=== PATIENT | female | born 1940 | race Caucasian/White ===

== ENCOUNTER → 2016-05-24 | Outpatient (CLI) | payer MEDICARE, OTHER ==
[2016-02-19 11:00] VITALS: BP 102/60
[~2016-05-24] MED LIST: ACET325T9 PO; AMIO200T2 PO; CELE100C PO; CHOL100013 PO; ESOM40CA PO; FENO145T2 PO; FURO40TA4 PO; INSU100C4 SQ; INSU100I13 SQ; INSU100I17 SQ; ISOS60TA2 PO; LEVO88TA2 PO; LOSA50TA6 PO; MAGN400C PO; NITR0.4T SL; OMEG300C PO; PRAV20TA2 PO; WARF2TAB PO; ZOLPIDEM 5 MG TABLET. ONE; ZOLPIDEM 5 MG TABLET. PO ONE
--- NOTE | 2016-05-31 20:08 | SLEEP ---
DATE OF STUDY: 05/25/2016 ATTENDING PHYSICIAN: ____. The patient is 76 years old who weighs 290 pounds with a BMI of 47. The patient's [place] score was 10. Sleep study was performed at [facility]. During the night of the study, the patient spent 441 minutes in bed and slept for 187 minutes with a poor sleep efficiency of 42%. Sleep latency was 25 minutes with a REM latency of 67 minutes. Overall, sleep architecture showed normal stage I sleep, increased stage II sleep, normal slow wave and reduced REM sleep. During the initial diagnostic portion of the study, the patient slept 400 minutes. During this time, there was 1 obstructive apnea, 22 hypopneas, 2 mixed and no central apneas. The patient's apnea hypopnea index was 15 per hour. REM index of 35 per hour. The patient did not have any significant supine sleep. EKG monitoring revealed average heart rate of 79 beats per minute. There were no sustained arrhythmias. There were few PACs. Review of nocturnal oximetry study during the diagnostic portion revealed a mean oxygen saturation of 98% with the lowest of 84%. 47% of time oxygen saturation remained between 80% and 89%. PLMs were not seen. The patient met the criteria for CPAP initiation. It was started at 5 cm water and titrated up to 9 cm water. At the final pressure, the patient had 21 minutes of sleep. AHI was reduced to 0 per hour. The patient had no supine sleep. There was very minimal REM sleep was observed. The patient's oxygen saturations at the final pressure remained above 90%. The patient used nasal pillows. IMPRESSION: 1. Mild sleep apnea-hypopnea syndrome with worsening during REM sleep. Total AHI 15 per hour with a REM AHI of 35 per hour. 2. Poor sleep efficiency of 42%, resulting from sleep maintenance insomnia. 3. No clinically significant PLMS. 4. Nocturnal hypoxia secondary to obstructive sleep apnea, but resolved with CPAP. RECOMMENDATIONS: 1. CPAP at 9 cm water completely eliminated patient's sleep apnea and should be used on a nightly basis. 2. Follow up in 4-6 weeks to assess compliance with CPAP and to document clinical improvement. I would also recommend to review the download data to make sure AHI is less than 5 per hour on the final pressure. 3. Avoid TECHNICAL SUPPORT TECHNICIAN depressants. 4. Caution regarding driving until symptoms of sleep apnea resolve with the use of CPAP. 5. Weight loss is strongly advised. SHLOMO RODRIGUEZ MD DR: STANISLAW/jose JOB#: [id number] / [id number] TORRI
== END | disposition home or self-care (01) ==
LOC: SLPLAB 18:49
PROVIDERS: ATTEND Internal Medicine Critical Care Medicine
DX: G47.33 Obstructive sleep apnea (adult) (pediatric) (principal)
CPT/HCPCS: 95810

== ENCOUNTER 2020-07-24 20:33 | Emergency (ER) | payer MEDICARE, OTHER ==
[~2020-07-24] VITALS: Ht 170.2 cm; Wt 127.3 kg
[~2020-07-24 20:33] MED LIST changes: -AMIO200T2 PO; +AMIO200T6 PO; +APIX5TAB PO; +ASPI-886 PO; +CARV12.511 PO; +CLOP75TA PO; +CYCL1DRO EACHEYE; +DOCU-109 PO; -FENO145T2 PO; +FENO145T3 PO; +HYDR-2868 PO; -ISOS60TA2 PO; +ISOS60TA55 PO; -LEVO88TA2 PO; +LEVO88TA70 PO; +LOSA-73 PO; -LOSA50TA6 PO; +MAGN400T5 PO; +MOXI3DRO22 LEFTEYE; +NEPA3DRO LEFTEYE; -NITR0.4T SL; +NITR0.4T24 SL; +PANT20TA2 PO; +PRED5DRO16 LEFTEYE; +WARF3TAB54 PO; -ZOLPIDEM 5 MG TABLET. ONE; -ZOLPIDEM 5 MG TABLET. PO ONE
[2020-07-24] MEDS ORDERED: IV NORMAL SALINE 1000ML BAG 1,000 ML IV SCH (22:00)
[2020-07-24 22:10] LABS: BASO % 1 % (0-3); EOS # 0.1 x10^3/uL (0.0-0.7); EOS % 1 % (0-3); HEMOGLOBIN 13.7 g/dL (12.0-15.5); LYMPH # 1.2 x10^3/uL (1.0-4.8); LYMPH % 20 % (24-48); MEAN CORPUSCULAR HEMOGLOBIN 33 pg (25-35); MEAN CORPUSCULAR HGB CONC 33 g/dL (31-37); MEAN CORPUSCULAR VOLUME 98 fL (79-100); MONO # 0.4 x10^3/uL (0.0-1.1); MONO % 7 % (0-9); NEUT # 4.3 x10^3/uL (1.8-7.7); NEUT % 71 % (31-73); PLATELET COUNT 168 x10^3/uL (140-400); RED BLOOD COUNT 4.17 x10^6/uL (3.50-5.40); RED CELL DISTRIBUTION WIDTH 14.8 % (11.5-14.5)
[2020-07-24 22:18] LABS: CALCIUM 9.1 mg/dL (8.5-10.1); CREATININE 1.3 mg/dL (0.6-1.0); GFR 39.3; POTASSIUM 4.3 mmol/L (3.5-5.1)
[2020-07-24 22:23] LABS: ALBUMIN 3.7 g/dL (3.4-5.0); ALBUMIN/GLOBULIN RATIO 0.9 (1.0-1.7); TOTAL BILIRUBIN 0.8 mg/dL (0.2-1.0); TOTAL PROTEIN 7.8 g/dL (6.4-8.2)
[2020-07-24] MEDS ORDERED: MORPHINE SULFATE 4 MG/ML VIAL. IV ONE (23:00)
--- NOTE | 2020-07-24 23:24 | RAD ---
Exam: Chest one view INDICATION: Chest pain TECHNIQUE: Frontal view of the chest Comparisons: 10/27/2019 FINDINGS: Heart is mildly enlarged. Pulmonary vessels are within normal limits. The lung and pleural spaces are clear. IMPRESSION: No acute pulmonary process. Electronically signed by: Shanta Graves MD (07/24/2020 11:21 PM) MATTHEW
--- NOTE | 2020-07-24 23:31 | EKG ---
[facility] [address] [place] [address] Test Date: 2020-07-24 Test Time: 21:47:52 Pat Name: MARIA ELENA HOFFMANN Department: Room: Gender: F Curriculum Development Specialist: : 1940 Requested By: KATIE HARRIS Order Number: [id number] Reading MD: Measurements Intervals [place] Rate: 87 P: HI: QRS: 26 QRSD: 68 T: 49 QT: 386 QTc: 465 Interpretive Statements IRREGULAR RHYTHM, NO P-WAVE FOUND LOW LIMB LEAD VOLTAGE QRS(T) CONTOUR ABNORMALITY CONSIDER ANTEROSEPTAL MYOCARDIAL DAMAGE T ABNORMALITY IN ANTERIOR LEADS ABNORMAL ECG RI6.02 No previous ECG available for comparison
--- NOTE | 2020-07-24 23:42 | PHYS DOC ---
Past Medical History Past Medical History: A-Fib, CAD, CHF, Constipation, Diabetes-Type II, GERD, High Cholesterol, Hypertension, Hypothyroid, [place], Other Additional Past Medical Histor: PGM blood clot disease; hernia Past Surgical History: Appendectomy, Hysterectomy, Other Additional Past Surgical Histo: cardiac stents; knee; hernia; cataract surgery left eye Smoking Status: Never Smoker Alcohol Use: None Drug Use: None Adult General Chief Complaint Chief Complaint: UPPER EXTREMITY PAIN HPI HPI Patient is a 80 year old female with a complicated past medical history which includes hypertension, hyperlipidemia, CHF, CAD, A. fib and diabetes now pre sents emergency department complaint of new onset chest pain and shoulder pain. Patient states that early yesterday afternoon she started noticing a pain that primarily started in the right neck radiating to the right shoulder and into the right anterior chest. Patient states of been associated with mild sensation of shortness of breath. Denies any nausea or vomiting. Patient does state that t he pain appears worse when she moves her neck. Denies any fever or chills. Denies any history of similar symptoms. Review of Systems Review of Systems Constitutional: Denies fever or chills [] Eyes: Denies change in visual acuity, redness, or eye pain [] HENT: Denies nasal congestion or sore throat [] Respiratory: Denies cough or shortness of breath [] Cardiovascular: No additional information not addressed in HPI [] GI: Denies abdominal pain, nausea, vomiting, bloody stools or diarrhea [] : Denies dysuria or hematuria [] Musculoskeletal: Denies back pain or joint pain [] Integument: Denies rash or skin lesions [] Neurologic: Denies headache, focal weakness or sensory changes [] Endocrine: Denies polyuria or polydipsia [] All other systems were reviewed and found to be within normal limits, except as documented in this note. Current Medications Current Medications Current Medications Medications (Trade) Dose Ordered Sig/Massimo Start Time Stop Time Status Last Admin Dose Admin Morphine Sulfate (Morphine Sulfate) 4 mg 1X ONCE 07/24/20 23:00 07/24/20 23:01 DC 07/24/20 23:01 4 MG Sodium Chloride 1,000 ml @ 1,000 mls/hr Q1H 07/24/20 22:00 07/24/20 22:59 DC 07/24/20 22:00 1,000 MLS/HR Allergies Allergies Allergies Coded Allergies Type Severity Reaction Last Updated Verified I S O L A T I O N *CONTACT* Allergy Unknown 01/10/18 Yes No Known Medication Allergies Allergy Unknown 01/10/18 Yes Physical Exam Physical Exam Constitutional: Well developed, well nourished, no acute distress, non-toxic appearance. [] HENT: Normocephalic, atraumatic, bilateral external ears normal, oropharynx alexei st, no oral exudates, nose normal. [] Eyes: PERRLA, EOMI, conjunctiva normal, no discharge. [] Neck: Normal range of motion, no tenderness, supple, no stridor. [] Cardiovascular:Heart rate regular rhythm, no murmur [] Lungs & Thorax: Bilateral breath sounds clear to auscultation [] Abdomen: Bowel sounds normal, soft, no tenderness, no masses, no pulsatile masses. [] Skin: Warm, dry, no erythema, no rash. [] Back: No tenderness, no CVA tenderness. [] Extremities: No tenderness, no cyanosis, no clubbing, ROM intact, no edema. [] Neurologic: Alert and oriented X 3, normal motor function, normal sensory function, no focal deficits noted. [] Psychologic: Affect normal, judgement normal, mood normal. [] Current Patient Data Vital Signs Vital Signs Date Time Temp Pulse Resp B/P (MAP) Pulse Ox O2 Delivery O2 Flow Rate FiO2 07/24/20 23:01 Room Air 07/24/20 21:30 98.1 76 16 160/86 (110) 96 98.1 Lab Values Laboratory Tests Test 07/24/20 22:00 White Blood Count 6.0 x10^3/uL (4.0-11.0) Red Blood Count 4.17 x10^6/uL (3.50-5.40) Hemoglobin 13.7 g/dL (12.0-15.5) Hematocrit 41.0 % (36.0-47.0) Mean Corpuscular Volume 98 fL (79-100) Mean Corpuscular Hemoglobin 33 pg (25-35) Mean Corpuscular Hemoglobin Concent 33 g/dL (31-37) Red Cell Distribution Width 14.8 % (11.5-14.5) H Platelet Count 168 x10^3/uL (140-400) Neutrophils (%) (Auto) 71 % (31-73) Lymphocytes (%) (Auto) 20 % (24-48) L Monocytes (%) (Auto) 7 % (0-9) Eosinophils (%) (Auto) 1 % (0-3) Basophils (%) (Auto) 1 % (0-3) Neutrophils # (Auto) 4.3 x10^3/uL (1.8-7.7) Lymphocytes # (Auto) 1.2 x10^3/uL (1.0-4.8) Monocytes # (Auto) 0.4 x10^3/uL (0.0-1.1) Eosinophils # (Auto) 0.1 x10^3/uL (0.0-0.7) Basophils # (Auto) 0.0 x10^3/uL (0.0-0.2) Sodium Level 141 mmol/L (136-145) Potassium Level 4.3 mmol/L (3.5-5.1) Chloride Level 102 mmol/L (98-107) Carbon Dioxide Level 24 mmol/L (21-32) Anion Gap 15 (6-14) H Blood Urea Nitrogen 34 mg/dL (7-20) H Creatinine 1.3 mg/dL (0.6-1.0) H Estimated GFR (Cockcroft-Gault) 39.3 BUN/Creatinine Ratio 26 (6-20) H Glucose Level 214 mg/dL (70-99) H Calcium Level 9.1 mg/dL (8.5-10.1) Magnesium Level 2.0 mg/dL (1.8-2.4) Total Bilirubin 0.8 mg/dL (0.2-1.0) Aspartate Amino Transferase (AST) 13 U/L (15-37) L Alanine Aminotransferase (ALT) 12 U/L (14-59) L Alkaline Phosphatase 63 U/L (46-116) Troponin I Quantitative < 0.017 ng/mL (0.000-0.055) Total Protein 7.8 g/dL (6.4-8.2) Albumin 3.7 g/dL (3.4-5.0) Albumin/Globulin Ratio 0.9 (1.0-1.7) L Lipase 81 U/L (73-393) Laboratory Tests 07/24/20 22:00 Laboratory Tests 07/24/20 22:00 EKG EKG [] Radiology/Procedures Radiology/Procedures [] Course & Med Decision Making Course & Med Decision Making Pertinent Labs and Imaging studies reviewed. (See chart for details) 80F in the emergency department primarily with right-sided shoulder pain but also complaint of new onset of chest pain. Symptoms did start yesterday at this time will obtain ACS work-up and x-rays to evaluate for any significant abnormality and if negative feel patient be safely discharged home Dragon Disclaimer Dragon Disclaimer This electronic medical record was generated, in whole or in part, using a voice recognition dictation system. Departure Departure Impression: Primary Impression: Right shoulder pain Disposition: HOME / SELF CARE / HOMELESS Condition: GOOD Referrals: JUDY CONCEPCION MD (PCP) Patient Instructions: Shoulder Pain Additional Instructions: EMERGENCY DEPARTMENT GENERAL DISCHARGE INSTRUCTIONS Thank you for coming to [facility] Emergency Department (ED) today and trusting us with you care. We trust that you had a positive experience in our E mergency Department. If you wish to speak to the department management, you may call the Director at [phone]. YOUR FOLLOW UP INSTRUCTIONS ARE FOLLOWS: 1. Do you have a private Doctor? If you do not have a private doctor, please ask for a resource list of physicians or clinics that may be able to assist you with follow up care. 2. The Emergency Physicain has interpreted your x-rays. The X-Ray specialist will also review them. If there is a change in the findings, you will be notified in 48 hours when at all possible. 3. A lab test or culture has been done, your results will be reviewed and you will be notified if you need a change in treatment. ADDITIONAL INSTRUCTIONS AND INFORMATION: 1. Your care today has been supervised by a physician who is specially trained in emergency care. Many problems require more than one evaluation for a complete diagnosis and treatment. We recommend that you schedule your follow up appointment as recommended to ensure complete treatment of you illness or injury. If you are unable to obtain follow up care and continue to have a problem, or if your condition worsens, we recommend that you return to the ED. 2. We are not able to safely determine your condition over the phone nor are we able to give sound medical advice over the phone. For these safety reasons, if you call for medical advice we will ask you to come to the ED for further evaluation. 3. If you have any questions regarding these discharge instructions please call the ED at [phone]. SAFETY INFORMATION: In the interest of safety, wellness, and injury prevention; we encourage you to wear your sealbelt, if you smoke; quite smoking, and we encourage family to use a protective helmet for bicycling and other sporting events that present an increased risk for head injury. IF YOUR SYMPTOMS WORSEN OR NEW SYMPTOMS DEVELOP, OR YOU HAVE CONCERNS ABOUT YOUR CONDITION; OR IF YOUR CONDITION WORSENS WHILE YOU ARE WAITING FOR YOUR FOLLOW UP APPOINTMENT; EITHER CONTACT YOUR PRIMARY CARE DOCTOR, THE PHYSICIAN WHOSE NAME AND NUMBER YOU WERE GIVEN, OR RETURN TO THE ED IMMEDIATELY. KATIE HARRIS MD Jul 24, 2020 23:42
--- NOTE | 2020-07-24 23:48 | RAD ---
Study: XR SHOULDER_RIGHT 2+ VIEWS Indication: Right shoulder pain. Comparison: None. Findings: No displaced fracture or traumatic malalignment. Moderate AC joint arthrosis with periarticular spurr ing. Glenohumeral joint arthrosis is difficult to closely assess but favored mild to moderate. Osteop enia. Impression: No acute radiographic abnormality of the right shoulder girdle. Degenerative changes are collectively mild/moderate. Electronically signed by: MARCO ANTONIO GILL MD (07/24/2020 11:45 PM) [facility]
[2020-07-25 01:06] VITALS: BP 192/77
== END 2020-07-25 01:41 | disposition home or self-care (01) ==
LOC: ER 20:33
DX: M25.511 Pain in right shoulder (principal); R07.89 Other chest pain; I48.20 Chronic atrial fibrillation, unspecified; I11.0 Hypertensive heart disease with heart failure; I50.9 Heart failure, unspecified; K21.9 Gastro-esophageal reflux disease without esophagitis; E78.00 Pure hypercholesterolemia, unspecified; E03.9 Hypothyroidism, unspecified; I25.2 Old myocardial infarction; E11.9 Type 2 diabetes mellitus without complications; Z90.710 Acquired absence of both cervix and uterus; Z90.89 Acquired absence of other organs; Z98.890 Other specified postprocedural states; Z88.8 Allergy status to other drugs, medicaments and biological substances
CPT/HCPCS: 36415; 71045; 73030; 80053; 83690; 83735; 84484; 85025; 93005; 96361; 96374; 99285; J2270; J7030

== ENCOUNTER 2021-06-03 21:04 | Inpatient (IN) | payer MEDICARE, OTHER ==
[~2021-06-03] VITALS: Ht 170.2 cm; Wt 136.2 kg
[~2021-06-03 21:04] MED LIST changes: +AMIO200T53 PO; -AMIO200T6 PO; +MAGN400T48 PO; -MAGN400T5 PO
--- NOTE | 2021-06-03 21:06 | PHYS DOC ---
Past Medical History Past Medical History: A-Fib, CAD, CHF, Constipation, Diabetes-Type II, GERD, High Cholesterol, Hypertension, Hypothyroid, [place], Other Additional Past Medical Histor: PGM blood clot disease; hernia Past Surgical History: Appendectomy, Hysterectomy, Other Additional Past Surgical Histo: cardiac stents; knee; hernia; cataract surgery left eye Smoking Status: Never Smoker Alcohol Use: None Drug Use: None General Adult EDM: Chief Complaint: NEAR SYNCOPE HPI: HPI: Patient is a 81 year old female who presents from home, by EMS, with multiple complaints. The patient reports that she was trying to go to the bathroom, and when she stood up, she fell forward into the bathtub, she reports losing consciousness. She does report feeling lightheaded and dizzy prior to this. She reports that she has felt short of breath for quite a while, no acute changes today. She reports intermittent chest pressure. She denies acute chest pressure at present. She has had a progressively worsening cough over the last few weeks. Within the last 2 to 3 weeks, she had been hospitalized at [facility]. The patient is an incredibly poor historian, as is her . The patient reports that she does not know why she was admitted other than she "had problems with fluid." Patient is chronically dependent on supplemental oxygen, reportedly using 4 L per nasal cannula at all times. The p atwilfrido reports that he checks her pulse oximeter at home and she saturates in the 70s when she exerts herself, and she is frequently saturating in the 80s at rest. EMS was called to lift her out of the bathtub. She was unable to get up on her own. She reports right knee pain, though she has a history of chronic knee pain. She has history of chronic back pain. The patie nt admits to frequently taking her 's oxycodone to help with her pain. She does not want to discuss her pain issues with her primary care doctor because she feels that they will disapprove of her taking her 's opioid medication. She thinks that she may have hit her knee when she fell into the bathtub today. EMS noted hypoxia in the low 80s, placed on a nonrebreather. She reports that the nonrebreather is irritating her, she wishes to have it taken off. She denies headache, neck pain. She denies focal weakness. She has chronic neuropathy pain, but this is unchanged. No new numbness or tingling symptoms reported. She denies abdominal pain, nausea, vomiting. She denies fevers, but she has had chills. She has been recommended for inpatient rehab for assisted care, multiple times, but she has refused each time. Her has a disagreed with her returning home, especially after her more recent hospitalization. Her reports that she never participates meaningfully in home health services or physical therapy. Review of Systems: Review of Systems: Constitutional: Denies fever or chills. Generalized malaise and fatigue Eyes: Denies change in visual acuity. [] HENT: Denies nasal congestion or sore throat. [] Respiratory: Cough, dyspnea, [place] Cardiovascular: Chest pressure. Chronic lower extremity swelling. GI: Denies abdominal pain, nausea, vomiting, or diarrhea : Reports urinary frequency and mild dysuria. Musculoskeletal: Back pain, right knee pain. She has chronic bilateral knee pain Integument: Denies rash. [] Neurologic: Denies headache, focal weakness or sensory changes. Syncope and dizziness reported Endocrine: Reports polyuria or polydipsia. [] Lymphatic: Denies swollen glands. [] Psychiatric: Anxiety Heart Score: C/O Chest Pain: Yes HEART Score for Chest Pain: HEART Score for Chest Pain Response (Comments) Value History Moderately Suspicious 1 ECG Nonspecific Repolarizatio 1 Age > 65 2 Risk Factors >3 Risk Factors or Hx CAD 2 Total 6 Risk Factors: Risk Factors: DM, Current or recent (<one month) smoker, HTN, HLP, family history of CAD, obesity. Risk Scores: Score 0 - 3: 2.5% MACE over next 6 weeks - Discharge Home Score 4 - 6: 20.3% MACE over next 6 weeks - Admit for Clinical Observation Score 7 - 10: 72.7% MACE over next 6 weeks - Early Invasive Strategies Allergies: Allergies: Allergies Coded Allergies Type Severity Reaction Last Updated Verified I S O L A T I O N *CONTACT* Allergy Unknown 01/10/18 Yes No Known Medication Allergies Allergy Unknown 01/10/18 Yes Physical Exam: PE: Constitutional: Well developed, well nourished, no acute distress, non-toxic appearance. [] HENT: Normocephalic, atraumatic, bilateral external ears normal, oropharynx moist, no oral exudates, nose normal. [] Eyes: PERRLA, EOMI, conjunctiva normal, no discharge. [] Neck: Normal range of motion, no tenderness, supple, no stridor. [] Cardiovascular:Heart rate regular rhythm, no murmur [] Lungs & Thorax: Bilateral breath sounds clear to auscultation [] Abdomen: Bowel sounds normal, soft, no tenderness, no masses, no pulsatile masses. [] Skin: Warm, dry, no erythema, no rash. [] Back: No tenderness, no CVA tenderness. [] Extremities: No tenderness, no cyanosis, no clubbing, ROM intact, no edema. [] Neurologic: Alert and oriented X 3, normal motor function, normal sensory function, no focal deficits noted. [] Psychologic: Affect normal, judgement normal, mood normal. [] EKG: EKG: EKG is interpreted at 2116 Rhythm is atrial fibrillation Rate is 72 bpm [place] is normal No STEMI low voltage Radiology/Procedures: Radiology/Procedures: IMAGING REPORT Signed PATIENT: MARIA ELENA HOFFMANN ACCOUNT: [id number] : 1940 LOCATION: ER AGE: 81 SEX: F EXAM STATUS: REG ER ORD. PHYSICIAN: NAHUN RICHARDS DO REASON: dyspnea, chest pain PROCEDURE: PORTABLE CHEST 1V EXAM: CHEST ONE VIEW. HISTORY: Dyspnea, chest pain. COMPARISON: 07/24/2020. FINDINGS: A frontal view of the chest is obtained. There are interstitial and airspace infiltrates bilaterally with a basilar predominance. Small pleural effusions are suspected. There is no pneumothorax. The heart is moderately enlarged. There are atherosclerotic calcifications of the aorta. IMPRESSION: 1. Moderate pulmonary edema versus atypical pneumonia. Small pleural effusions are suspected. Electronically signed by: Major Mcgovern MD (06/03/2021 11:02 PM) [id number] DICTATED and SIGNED BY: DAMI MCGOVERN MD DATE: 06/03/21 [id number] IMAGING REPORT Signed PATIENT: MARIA ELENA HOFFMANN ACCOUNT: [id number] : 1940 LOCATION: ER AGE: 81 SEX: F EXAM STATUS: REG ER ORD. PHYSICIAN: NAHUN RICHARDS DO REASON: syncope PROCEDURE: CT HEAD AND CERVICAL SPINE WO Exam: CT head and cervical spine without contrast INDICATION: Syncope TECHNIQUE: Sequential axial images through the head and cervical spine were obtained without the administration of IV contrast. Exposure: One or more of the following in the visualized dose reduction techniques were utilized for this examination: 1. Automated exposure control 2. Adjustment of the MA and/or KV according to patient size 3. Use of iterative of reconstructive technique Comparisons: None FINDINGS: Head: No focal parenchymal lesion or hemorrhage is identified. There is no midline shift or sulcal effacement. Patchy hypodensity in the periventricular white matter. No acute vascular territory infarction is identified. Segal-white distinction is preserved. The ventricular system is within normal limits without compression hydrocephalus. The basal cisterns are well maintained. The visualized portions of the paranasal sinuses and mastoid air cells are well- pneumatized. No acute fractures. Cervical spine: Straightening of cervical spine which may positional. Vertebral body heights are well-maintained. Fracture to the cervical spine is not identified. Multilevel spondylotic change in cervical spine with degenerative disc disease greatest at C5-C6 and C6-C7. Mild bilateral facet arthropathy is noted in cervical spine. Visualized paraspinal soft tissues are unremarkable. IMPRESSION: 1. No acute intracranial abnormality. 2. Negative CT C-spine for acute traumatic injury. Electronically signed by: Shanta Knight MD (06/03/2021 11:00 PM) [facility] DICTATED and SIGNED BY: SHANTA KNIGHT MD DATE: 06/03/21 [id number] IMAGING REPORT Signed PATIENT: MARIA ELENA HOFFMANN ACCOUNT: [id number] : 1940 LOCATION: [address] [place] [address] AGE: 81 SEX: F EXAM STATUS: ADM IN ORD. PHYSICIAN: NAHUN RICHARDS DO REASON: pain PROCEDURE: KNEE RIGHT 2V XR KNEE_RT 1-2 VIEWS 06/03/2021 12:19 AM INDICATION: Pain COMPARISON: None available. TECHNIQUE: 3 views of the right knee are provided. 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 There is no lucency surrounding the hardware. No acute fracture identified. No findings to suggest hardware failure. Vascular calcifications are present. Moderate knee joint effusion. Patella appears intact. Patellar enthesopathy. Electronically signed by: Francisca Rajan MD (06/04/2021 12:55 AM) [facility] DICTATED and SIGNED BY: FRANCISCA RAJAN MD DATE: 06/04/21 [id number] Course & Med Decision Making: Course & Med Decision Making Pertinent Labs and Imaging studies reviewed. (See chart for details) The patient's oxygen is titrated to 6 L per nasal cannula. ABG does not demonstrate any significant hypoxia or worsening respiratory failure. Blood cultures and lactate obtained. She is empirically treated with IV vancomycin and Zosyn for treatment of healthcare associated pneumonia. She also has a urinary tract infection. IV Lasix is ordered. The patient demanded something for her knee pain. X-ray does not reveal any acute fracture. I ordered a dose of [place] for her. I have had multiple, lengthy discussions with the patient and her regarding the findings, differential diagnosis and plan of care. The patient is comfortable with the plan for admission. I expressed specific concerns to the patient and her regarding failure to thrive, and I recommend a social media strategist consultation. The patient is excepted for admission by Dr. Howard. Ami Disclaimer: Ami Disclaimer: This electronic medical record was generated, in whole or in part, using a voice recognition dictation system. Departure Departure Impression: Primary Impression: Healthcare-associated pneumonia Additional Impressions: Syncope Generalized weakness Urinary tract infection Failure to thrive Diabetes mellitus Chronic respiratory failure with hypoxia, on home O2 therapy Disposition: ADMITTED INPATIENT Admitting Physician: JEB (Dr. Howard) Condition: GUARDED Referrals: JUDY CONCEPCION MD (PCP) NAHUN RICHARDS DO Jun 03, 2021 21:06
[2021-06-03 21:50] LABS: BASO % 0 % (0-3); EOS % 1 % (0-3); HEMATOCRIT 33.8 % (36.0-47.0); HEMOGLOBIN 11.3 g/dL (12.0-15.5); LYMPH # 0.7 x10^3/uL (1.0-4.8); LYMPH % 9 % (24-48); MEAN CORPUSCULAR HEMOGLOBIN 35 pg (25-35); MEAN CORPUSCULAR HGB CONC 33 g/dL (31-37); MEAN CORPUSCULAR VOLUME 105 fL (79-100); MONO # 0.5 x10^3/uL (0.0-1.1); MONO % 6 % (0-9); NEUT # 6.8 x10^3/uL (1.8-7.7); NEUT % 85 % (31-73); PLATELET COUNT 158 x10^3/uL (140-400); RED BLOOD COUNT 3.22 x10^6/uL (3.50-5.40); RED CELL DISTRIBUTION WIDTH 17.9 % (11.5-14.5)
[2021-06-03 21:58] LABS: PROTHROMBIN TIME PATIENT 17.5 SEC (11.7-14.0)
[2021-06-03 22:05] LABS: CALCIUM 8.5 mg/dL (8.5-10.1); CREATININE 1.3 mg/dL (0.6-1.0); GFR 39.2; POTASSIUM 4.5 mmol/L (3.5-5.1)
[2021-06-03 22:11] LABS: ALBUMIN 3.1 g/dL (3.4-5.0); ALBUMIN/GLOBULIN RATIO 0.7 (1.0-1.7); MAGNESIUM 1.9 mg/dL (1.8-2.4); PHOSPHORUS 3.9 mg/dL (2.6-4.7); TOTAL BILIRUBIN 1.1 mg/dL (0.2-1.0); TOTAL PROTEIN 7.3 g/dL (6.4-8.2)
[2021-06-03 22:39] LABS: BILIRUBIN,URINE SMALL (NEG); CLARITY,URINE CLOUDY; COLOR,URINE YELLOW; NITRITE,URINE POSITIVE (NEG); PH,URINE 5.5 (<5.0-8.0); PROTEIN,URINE 30 mg/dL (NEG-TRACE); UROBILINOGEN,URINE 0.2 mg/dL (0.2 mg/dL)
[2021-06-03 22:40] LABS: BACTERIA,URINE MANY /HPF (0-FEW); RBC,URINE OCC /HPF (0-2); WBC,URINE TNTC /HPF (0-4)
[2021-06-03] MEDS ORDERED: VANCOMYCIN 1.5 GM in IV NORMAL SALINE 500ML BAG 500 ML IV ONE (23:00)
--- NOTE | 2021-06-03 23:03 | RAD ---
Exam: CT head and cervical spine without contrast INDICATION: Syncope TECHNIQUE: Sequential axial images through the head and cervical spine were obtained without the admi nistration of IV contrast. Exposure: One or more of the following in the visualized dose reduction techniques were utilized for this examination: 1. Automated exposure control 2. Adjustment of the MA and/or KV according to patient size 3. Use of iterative of reconstructive technique Comparisons: None FINDINGS: Head: No focal parenchymal lesion or hemorrhage is identified. There is no midline shift or sulcal effaceme nt. Patchy hypodensity in the periventricular white matter. No acute vascular territory infarction is connie ntified. Segal-white distinction is preserved. The ventricular system is within normal limits without compression hydrocephalus. The basal cisterns are well maintained. The visualized portions of the paranasal sinuses and mastoid air cells are well-pneumatized. No acute fractures. Cervical spine: Straightening of cervical spine which may positional. Vertebral body heights are well-maintained. Fracture to the cervical spine is not identified. Multilevel spondylotic change in cervical spine with degenerative disc disease greatest at C5-C6 and C6-C7. Mild bilateral facet arthropathy is noted in cervical spine. Visualized paraspinal soft tissues are unremarkable. IMPRESSION: 1. No acute intracranial abnormality. 2. Negative CT C-spine for acute traumatic injury. Electronically signed by: Shanta Graves MD (06/03/2021 11:00 PM) [facility]
--- NOTE | 2021-06-03 23:04 | RAD ---
EXAM: CHEST ONE VIEW. HISTORY: Dyspnea, chest pain. COMPARISON: 07/24/2020. FINDINGS: A frontal view of the chest is obtained. There are interstitial and airspace infiltrates bilaterally with a basilar predominance. Small pleura l effusions are suspected. There is no pneumothorax. The heart is moderately enlarged. There are athe rosclerotic calcifications of the aorta. IMPRESSION: 1. Moderate pulmonary edema versus atypical pneumonia. Small pleural effusions are suspected. Electronically signed by: Major Mcgovern MD (06/03/2021 11:02 PM) [place]
[2021-06-03 23:28] LABS: BASE EXCESS ABG 0 mmol/L (-3-3); HCO3 ABG 27 mmol/L (21-28); PCO2 ABG 53 mmHg (35-46); PO2 ABG 79 mmHg (65-108); SAT O2 ABG 94 % (92-99)
[2021-06-03 23:29] LABS: FIO2 ABG 100 (NRB)
[2021-06-03] MEDS ORDERED: FUROSEMIDE 20 MG/2 ML VIAL. IVP ONE (23:30)
[2021-06-03] MEDS ORDERED: PIPERACILLIN/TAZOBACTAM 4.5 GM in IV NORMAL SALINE 100ML 100 ML IV ONE (23:30)
[2021-06-04] MEDS ORDERED: VANCOMYCIN 2 GM in IV NORMAL SALINE 500ML BAG 500 ML IV ONE
[2021-06-04] MEDS ORDERED: HYDROcodone/APAP 5/325MG 1 TAB TABLET PO ONE (00:30)
--- NOTE | 2021-06-04 00:58 | RAD ---
XR KNEE_RT 1-2 VIEWS 06/03/2021 12:19 AM INDICATION: Pain COMPARISON: None available. TECHNIQUE: 3 views of the right knee are provided. 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 There is no lucency surrounding the hardware. No a cute fracture identified. No findings to suggest hardware failure. Vascular calcifications are presen t. Moderate knee joint effusion. Patella appears intact. Patellar enthesopathy. Electronically signed by: Gwendolyn Pena MD (06/04/2021 12:55 AM) BENNY
--- NOTE | 2021-06-04 01:32 | EKG ---
[facility] [address] [place] [address] Test Date: 2021-06-03 Test Time: 21:14:52 Pat Name: MARIA ELENA HOFFMANN Department: Room: [facility] Gender: F Trout Farmer: : 1940 Requested By: NAHUN RICHARDS Order Number: [id number] Reading MD: Mario Reed Measurements Intervals [place] Rate: 72 P: [place]: QRS: 63 QRSD: 72 T: 70 QT: 404 QTc: 444 Interpretive Statements ATRIAL FIBRILLATION LOW LIMB LEAD VOLTAGE QRS(T) CONTOUR ABNORMALITY CONSISTENT WITH POSSIBLE OLD ANTEROSEPTAL INFARCT Electronically Signed On 06-05-2021 17:53:51 [employer]IOR [employer]ACLE DEVELOPER by Mario Reed
[2021-06-04 01:44] LABS: INFLUENZA A PATIENT NEGATIVE (NEGATIVE); INFLUENZA B PATIENT NEGATIVE (NEGATIVE)
[2021-06-04] MEDS ORDERED: ONDANSETRON PF 4 MG/2 ML VIAL. IVP PRN (01:45)
[2021-06-04] MEDS ORDERED: ACETAMINOPHEN 325 MG TABLET. PO PRN ×2 (01:45→05:00)
[2021-06-04] MEDS ORDERED: fentaNYL PF VIAL 100 MCG/2 ML VIAL IVP PRN (01:45)
[2021-06-04] MEDS: diphenhydrAMINE HCL 25 MG CAPSULE PO PRN (02:17)
[2021-06-04 02:28] VITALS: BP 171/97
[2021-06-04] MEDS ORDERED: BUME1TAB3 PO (04:45)
[2021-06-04] MEDS ORDERED: APIX2.5T PO (04:45)
[2021-06-04] MEDS ORDERED: CARV25TA2 PO (04:45)
[2021-06-04] MEDS: VANCOMYCIN PER PHARMACY MC PRN (04:55)
--- NOTE | 2021-06-04 04:55 | NUR ---
Pharmacy Vancomycin Dosing Note S:Consulted to monitor and dose vancomycin started 06/04/21. O:MARIA ELENA HOFFMANN is a 81 year old F with Pneumonia . Height: 5 feet, 7 inches Weight: 138.0 kg [place] Body Weight: 61.60 Adjusted Body Weight: 92.16 Dosing Weight: Actual Other Antibiotics: ZOSYN 4.5GM 1X ER LABS: Last BUN: 24 Last Creatinine: 1.3 Creatinine Clearance: 46 mL/min Last WBC: 8 Last Procalcitonin: Tmax (past 24 hours): Microbiology: I/O: Drug Levels: Last level: on at Last dose given 06/04/21 at 0000 Vancomycin Dosing: Loading Dose: 2000 mg x1 Dosing Weight: Actual Target Trough: 15-20 A: Based on: WT AND CRCL P: 1. Begin Vancomycin 2000 mg IV q24h 2. Follow up Trough level on 06/05/21 at 2230 3. Pharmacy will continue to monitor, follow and adjust therapy as needed. GABRIEL HINSON RPH, 06/04/21 0455 Signed: 06/04/21 at 0456 by GABRIEL HINSON RPH PHA
[2021-06-04] MEDS ORDERED: NITROGLYCERIN SUBLINGUAL 0.4 MG BOTTLE OF 25. SL PRN (05:00)
[2021-06-04] MEDS ORDERED: ANTI-COAG MONITOR BY PHARMACY. MC PRN (05:30)
[2021-06-04] MEDS ORDERED: DEXTROSE 50% 25 GM / 50ML DISP.SYRIN. IV PRN (05:30)
[2021-06-04] MEDS ORDERED: IV DEXTROSE 5% 250 ML BAG. IV PRN (05:30)
[2021-06-04] MEDS: LEVOTHYROXINE 88 MCG TABLET PO SCH (05:41)
[2021-06-04] MEDS: fentaNYL PF VIAL 100 MCG/2 ML VIAL IVP PRN ×2 (05:42→08:49)
[2021-06-04] MEDS: PANTOPRAZOLE 40 MG TABLET.DR. PO SCH (05:44)
--- NOTE | 2021-06-04 06:22 | NUR ---
Pt arrived to unit at approx 0220 accompanied by ED RN. Patient reports 9/10 pain in the right knee. Pt states severe weakness in lower extremities. States that she uses a walker at home. per pt "blacked out" in bathroom and pts son found her slumped over the edge of the bath tub. Pt states that she has had a decreased apitite lately and "havent ate in a few day". Pt stated that she has also been extremely tired and sleeping "all day". Pt has sleep apnea but refuses to wear a CPAP becuase she states it makes her claustrophobic. patient is diabetic and takes insulin but states "im afraid to take all the insulin because my blood sugar sometimes drops into the 50's". Pt stated that she usually just does a sliding scale with meals and then her long acting at night.
[2021-06-04 07:00] VITALS: BP 141/64
[2021-06-04] MEDS: INSULIN LISPRO 300 UNITS/3 ML VIAL. SQ SCH ×3 (08:00→17:00)
[2021-06-04] MEDS: LOSARTAN POTASSIUM 50 MG TABLET. PO SCH (08:51)
[2021-06-04] MEDS: CHOLECALCIFEROL (VITAMIN D3) 1,000 UNIT TABLET PO SCH (08:51)
[2021-06-04] MEDS: MAGNESIUM OXIDE 400 MG TABLET PO SCH (08:51)
[2021-06-04] MEDS: APIXABAN 2.5 MG TABLET. PO SCH ×2 (08:52→19:46)
[2021-06-04] MEDS: CARVEDILOL 12.5 MG TABLET. PO SCH ×2 (08:52→17:48)
[2021-06-04] MEDS: ATORVASTATIN CALCIUM 10 MG TABLET. PO SCH (08:53)
[2021-06-04] MEDS: BUMETANIDE 1 MG TABLET. PO SCH ×2 (08:53→17:48)
[2021-06-04] MEDS: cycloSPORINE 0.05% OPHTH DROPERETTE. OU SCH ×2 (09:00→19:46)
--- NOTE | 2021-06-04 09:56 | PDOC1 ---
History and Physical Date of Admission Date of Admission DATE: 06/04/21 TIME: 09:51 Source Source: Chart review, Patient History of Present Illness History of Present Illness Ms. White, is a 81 year old female admit after a fall, workup for syncope. Yesterday, she had dizzyness and then fell forward into the bathtub, and lost consciousness. . she had not felt well for days ,and had been short of breath, with some chest pain at times, LE edema she thinks is worse. Was recently hospitalized at [facility], weakness and CHF. chronic hypoxia, 4 L per nasal cannula, and she reports recent hypoxia at home, worse with exertion. this AM, she complains of right knee pain, severe pain afer the fall, better with ICE, better with narcotic pain meds, pain has been 10/10 this AM , she takes her husbands pain meds soemtimes. She denies headache, neck pain or focal weakness. She has chronic neuropathy pain, but this is unchanged. she grew up in [place], [place], her helps with her meds. - she had been advised to try skilled before and had refused Past Medical History Cardiovascular: AFIB, CAD, CHF, HTN, Hyperlipidemia, Other Pulmonary: Other CENTRAL NERVOUS SYSTEM: Other GI: Constipation, GERD Heme/Onc: Anemia NOS, Other Hepatobiliary: No pertinent hx Psych: No pertinent hx Musculoskeletal: Osteoarthritis Rheumatologic: No pertinent hx Infectious disease: No pertinent hx Renal/: Chronic renal insuff Endocrine: Diabetes, Hypothyroidism Past Surgical History Past Surgical History: Appendectomy, Cataract Removal, Hernia Repair, Tonsillectomy, Hysterectomy, Other Family History Family History: Heart Disease, Hypertension Social History Smoke: No ALCOHOL: none Drugs: None Current Problem List Problem List Problems Medical Problems: (1) Chronic respiratory failure with hypoxia, on home O2 therapy Status: Acute (2) Diabetes mellitus Status: Acute (3) Failure to thrive Status: Acute (4) Generalized weakness Status: Acute (5) Healthcare-associated pneumonia Status: Acute (6) Syncope Status: Acute (7) Urinary tract infection Status: Acute Current Medications Current Medications Current Medications Vancomycin HCl 1.5 gm/Sodium Chloride 500 ml @ 250 mls/hr 1X ONCE IV ; Start 06/03/21 at 23:00; Stop 06/04/21 at 00:59; Status UNV Piperacillin Sod/ Tazobactam Sod 4.5 gm/Sodium Chloride 100 ml @ 200 mls/hr 1X ONCE IV Last administered on 06/04/21at 00:02; Start 06/03/21 at 23:30; Stop 06/03/21 at 23:59; Status DC Furosemide (Lasix) 20 mg 1X ONCE IVP Last administered on 06/04/21at 00:00; Start 06/03/21 at 23:30; Stop 06/03/21 at 23:31; Status DC Vancomycin HCl (Vanco Per Pharmacy) 1 each PRN DAILY PRN MC SEE COMMENTS Last administered on 06/04/21at 04:55; Start 06/03/21 at 23:45 Vancomycin HCl 2 gm/Sodium Chloride 500 ml @ 250 mls/hr 1X ONCE IV Last administered on 06/04/21at 00:16; Start 06/04/21 at 00:00; Stop 06/04/21 at 01:59; Status DC Acetaminophen/ Hydrocodone Bitart (Lortab 5/325) 1 tab 1X ONCE PO Last administered on 06/04/21at 00:14; Start 06/04/21 at 00:30; Stop 06/04/21 at 00:31; Status DC Ondansetron HCl (Zofran) 4 mg PRN Q8HRS PRN IVP NAUSEA/VOMITING 1ST CHOICE; Start 06/04/21 at 01:45; Stop 06/05/21 at 01:44 Acetaminophen (Tylenol) 650 mg PRN Q6HRS PRN PO MILD PAIN / TEMP > 100.3'F; Start 06/04/21 at 01:45 Diphenhydramine HCl (Benadryl) 25 mg PRN Q6HRS PRN PO insomnia or itching Last administered on 06/04/21at 02:17; Start 06/04/21 at 01:45 Fentanyl Citrate (Fentanyl 2ml Vial) 50 mcg PRN Q4HRS PRN IVP SEVERE PAIN 7-10 Last administered on 06/04/21at 02:18; Start 06/04/21 at 01:45; Stop 06/04/21 at 04:58; Status DC Vancomycin HCl 2 gm/Sodium Chloride 500 ml @ 250 mls/hr Q24H IV ; Start 06/04/21 at 23:00 Vancomycin HCl (Vancomycin Trough Level) 1 each 1X ONCE MC ; Start 06/05/21 at 22:30; Stop 06/05/21 at 22:31 Fentanyl Citrate (Fentanyl 2ml Vial) 50 mcg PRN Q2HR PRN IVP SEVERE PAIN 7-10 Last administered on 06/04/21at 08:49; Start 06/04/21 at 05:00 Acetaminophen (Tylenol) 650 mg PRN QHS PRN PO MILD PAIN 1-3; Start 06/04/21 at 05:00 Apixaban (Eliquis) 2.5 mg BID PO Last administered on 06/04/21at 08:52; Start 06/04/21 at 09:00 Bumetanide (Bumex) 1 mg BID94 PO Last administered on 06/04/21at 08:53; Start 06/04/21 at 09:00 Celecoxib (CeleBREX) 100 mg PRN BID PRN PO INFLAMMATION; Start 06/04/21 at 05:00 Cyclosporine (Restasis) 1 drop BID OU ; Start 06/04/21 at 09:00 Levothyroxine Sodium (Synthroid) 88 mcg DAILY06 PO Last administered on 06/04/21at 05:41; Start 06/04/21 at 06:00 Losartan Potassium (Cozaar) 50 mg DAILY PO Last administered on 06/04/21at 08:51; Start 06/04/21 at 09:00 Magnesium Oxide (Magnesium Oxide) 400 mg DAILY PO Last administered on 06/04/21at 08:51; Start 06/04/21 at 09:00 Nitroglycerin (Nitrostat) 0.4 mg PRN Q5MIN PRN SL CHEST PAIN; Start 06/04/21 at 05:00 Carvedilol (Coreg) 25 mg BIDWMEALS PO Last administered on 06/04/21at 08:52; Start 06/04/21 at 08:00 Vitamin D (Vitamin D3) 1,000 unit DAILY PO Last administered on 06/04/21at 08:51; Start 06/04/21 at 09:00 Insulin Human Lispro (HumaLOG) 16 units TIDWMEALS SQ ; Start 06/04/21 at 08:00 Insulin Glargine (Lantus Syringe) 50 unit QHS SQ ; Start 06/04/21 at 21:00 Pantoprazole Sodium (Protonix) 40 mg DAILYAC PO Last administered on 06/04/21at 05:44; Start 06/04/21 at 07:30 Atorvastatin Calcium (Lipitor) 5 mg DAILY PO Last administered on 06/04/21at 08:53; Start 06/04/21 at 09:00 Dextrose (Dextrose 50%-Water Syringe) 12.5 gm PRN Q15MIN PRN IV SEE COMMENTS; Start 06/04/21 at 05:30 Dextrose (Iv Dextrose 5%) 250 ml PRN Q15MIN PRN IV SEE COMMENTS; Start 06/04/21 at 05:30 Info (Anti-Coagulation Monitoring By Pharmacy) 1 each PRN DAILY PRN MC PER PROTOCOL Last administered on 06/04/21at 05:33; Start 06/04/21 at 05:30 Active Scripts Active Reported Bumetanide 1 Mg Tablet 1 Mg PO BID Carvedilol 25 Mg Tablet 25 Mg PO BIDWMEALS Eliquis (Apixaban) 2.5 Mg Tablet 2.5 Mg PO BID Restasis (Cyclosporine) 1 Each Droperette 1 Drop EACHEYE BID Tylenol (Acetaminophen) 325 Mg Tablet 650 Mg PO QHS PRN Magnesium Oxide 400 Mg Tablet 400 Mg PO DAILY Protonix (Pantoprazole Sodium) 20 Mg Tablet.dr 40 Mg PO DAILY Novolog (Insulin Aspart) 100 Unit/1 Ml Cartridge 16 Unit SQ TIDAC Lantus Solostar (Insulin Glargine,Hum.rec.anlog) 100 Unit/1 Ml Insuln.pen 50 Unit SQ QHS Novolog Flexpen (Insulin Aspart) 100 Unit/1 Ml Insuln.pen 0 SQ TIDWMEALS PRN Celebrex (Celecoxib) 100 Mg Capsule 1 Cap PO PRN BID Nitrostat (Nitroglycerin) 0.4 Mg Tab.subl 1 Tab SL UD PRN Vitamin D (Cholecalciferol (Vitamin D3)) 1,000 Unit Capsule 1 Cap PO DAILY Losartan Potassium 50 Mg Tablet 50 Mg PO DAILY Synthroid (Levothyroxine Sodium) 88 Mcg Tablet 1 Tab PO DAILY Gave this morning Take tomorrow Pravastatin Sodium 20 Mg Tablet 1 Tab PO DAILY Allergies Allergies: Coded Allergies: I S O L A T I O N *CONTACT* (Verified Allergy, Unknown, 01/10/18) +MRSA nares 05/13/09 No Known Medication Allergies (Verified Allergy, Unknown, 01/10/18) ROS General: YES: Chills, Fatigue, Malaise PSYCHOLOGICAL ROS: YES: Sleep disturbances; No: Anxiety, Behavioral Disorder, Concentration difficultie, Decreased libido, Depression, Disorientation, Hallucinations, Hostility, Irritablity, Mem ory difficulties, Mood Swings, Obsessive thoughts, Other Eyes: No Blurry vision, No Decreased vision, No Double vision, No Dry eyes, No Excessive tearing, No Eye Pain, No Itchy Eyes, No Loss of vision, No Photophobia, No Scotomata, No Uses contacts, No Uses glasses, No Other HEENT: No: Heacaches, Visual Changes, Hearing change, Nasal congestion, Nasal discharge, Oral lesions, Sinus pain, Sore Throat, Epistaxis, Sneezing, Snoring, Tinnitus, Vertigo, Vocal changes, Other Respiratory: YES: Cough, SOB with excertion; No: Hemoptysis, Orthopnea, Pleuritic Pain, Shortness of breath, Sputum Changes, Stridor, Tachypnea, Wheezing, Other Cardiovascular: yes Edema; No Chest Pain, No Palpitations, No Orthopnea, No Paroxysmal Noc. Dyspnea, No Lt Headedness, No Other Gastrointestinal: No Nausea, No Vomiting, No Abdominal Pain, No Diarrhea, No Constipation, No Melena, No Hematochezia, No Other Genitourinary: No Dysuria, No Frequency, No Incontinence, No Hematuria, No Retention, No Discharge, No Urgency, No Pain, No Flank Pain, No Other, No , No , No , No , No , No , No Musculoskeletal: Yes Gait Disturbance, Yes Joint Pain, Yes Joint Stiffness, Yes Pain In: (right knee) Neurological: Yes Headaches; No Behavorial Changes, No Bowel/Bladder ControlChng, No Confusion, No Dizziness, No Gait Disturbance, No Impaired Coord/balance, No Memory Loss, No Numbness/Tingling, No Seizures, No Speech Problems, No Tremors, No Visual Changes, No Weakness, No Other Skin: Yes Dry Skin; No Eczema, No Hair Changes, No Lumps, No Mole Changes, No Mottling, No Nail Changes, No Pruritus, No Rash, No Skin Lesion Changes, No Other, No Acne Physical Exam General: Oriented X3, mild distress HEENT: Atraumatic, EOMI, Mucous membr. moist/pink Lungs: Normal air movement Heart: no gallops, no murmurs, other (pedal edema 3+ left 2+ right) Abdomen: Soft (obese) Extremities: No cyanosis, Normal pulses, Other (edema) Skin: No rashes Neuro: Normal speech, Normal tone, Cranial nerves 3-12 NL Psych/Mental Status: Mood NL Vitals Vitals Vital Signs Date Time Temp Pulse Resp B/P (MAP) Pulse Ox O2 Delivery O2 Flow Rate FiO2 06/04/21 08:52 83 141/64 06/04/21 08:49 93 Nasal Cannula 6.0 06/04/21 07:00 97.8 21 97.8 Labs Labs Laboratory Tests Test 06/03/21 21:30 06/03/21 22:20 06/03/21 23:15 06/04/21 01:20 White Blood Count 8.0 x10^3/uL (4.0-11.0) Red Blood Count 3.22 x10^6/uL (3.50-5.40) Hemoglobin 11.3 g/dL (12.0-15.5) Hematocrit 33.8 % (36.0-47.0) Mean Corpuscular Volume 105 fL (79-100) Mean Corpuscular Hemoglobin 35 pg (25-35) Mean Corpuscular Hemoglobin Concent 33 g/dL (31-37) Red Cell Distribution Width 17.9 % (11.5-14.5) Platelet Count 158 x10^3/uL (140-400) Neutrophils (%) (Auto) 85 % (31-73) Lymphocytes (%) (Auto) 9 % (24-48) Monocytes (%) (Auto) 6 % (0-9) Eosinophils (%) (Auto) 1 % (0-3) Basophils (%) (Auto) 0 % (0-3) Neutrophils # (Auto) 6.8 x10^3/uL (1.8-7.7) Lymphocytes # (Auto) 0.7 x10^3/uL (1.0-4.8) Monocytes # (Auto) 0.5 x10^3/uL (0.0-1.1) Eosinophils # (Auto) 0.0 x10^3/uL (0.0-0.7) Basophils # (Auto) 0.0 x10^3/uL (0.0-0.2) Prothrombin Time 17.5 SEC (11.7-14.0) Prothromb Time International Ratio 1.5 (0.8-1.1) Activated Partial Thromboplast Time 32 SEC (24-38) Sodium Level 137 mmol/L (136-145) Potassium Level 4.5 mmol/L (3.5-5.1) Chloride Level 99 mmol/L (98-107) Carbon Dioxide Level 28 mmol/L (21-32) Anion Gap 10 (6-14) Blood Urea Nitrogen 24 mg/dL (7-20) Creatinine 1.3 mg/dL (0.6-1.0) Estimated GFR (Cockcroft-Gault) 39.2 BUN/Creatinine Ratio 18 (6-20) Glucose Level 242 mg/dL (70-99) Lactic Acid Level 1.3 mmol/L (0.4-2.0) Calcium Level 8.5 mg/dL (8.5-10.1) Phosphorus Level 3.9 mg/dL (2.6-4.7) Magnesium Level 1.9 mg/dL (1.8-2.4) Total Bilirubin 1.1 mg/dL (0.2-1.0) Aspartate Amino Transf (AST/SGOT) 5 U/L (15-37) Alanine Aminotransferase (ALT/SGPT) 10 U/L (14-59) Alkaline Phosphatase 51 U/L (46-116) Creatine Kinase 32 U/L (26-192) Troponin I High Sensitivity 8 ng/L (4-50) IQ-Ttb-T-Type Natriuretic Peptide 1647 pg/mL (0-449) Total Protein 7.3 g/dL (6.4-8.2) Albumin 3.1 g/dL (3.4-5.0) Albumin/Globulin Ratio 0.7 (1.0-1.7) Urine Collection Type U cath Urine Color Yellow Urine Clarity Cloudy Urine pH 5.5 (<5.0-8.0) Urine Specific [place] >=1.030 (1.000-1.030) Urine Protein 30 mg/dL (NEG-TRACE) Urine Glucose (UA) Negative mg/dL (NEG) Urine Ketones (Stick) Negative mg/dL (NEG) Urine Blood Moderate (NEG) Urine Nitrite Positive (NEG) Urine Bilirubin Small (NEG) Urine Urobilinogen Dipstick 0.2 mg/dL (0.2 mg/dL) Urine Leukocyte Esterase Small (NEG) Urine RBC Occ /HPF (0-2) Urine WBC Tntc /HPF (0-4) Urine Squamous Epithelial Cells Mod /LPF Urine Bacteria Many /HPF (0-FEW) Urine Mucus Slight /LPF O2 Saturation 94 % (92-99) Arterial Blood pH 7.32 (7.35-7.45) Arterial Blood pCO2 at Patient Temp 53 mmHg (35-46) Arterial Blood pO2 at Patient Temp 79 mmHg (65-108) Arterial Blood HCO3 27 mmol/L (21-28) Arterial Blood Base Excess 0 mmol/L (-3-3) FiO2 100 (nrb) Influenza Type A Antigen Negative (NEGATIVE) Influenza Type B Antigen Negative (NEGATIVE) SARS-CoV-2 Antigen (Rapid) Negative (NEGATIVE) Test 06/04/21 02:04 06/04/21 07:58 Glucose (Fingerstick) 281 mg/dL (70-99) 195 mg/dL (70-99) Laboratory Tests Test 06/03/21 21:30 06/03/21 22:20 06/03/21 23:15 06/04/21 01:20 White Blood Count 8.0 x10^3/uL (4.0-11.0) Red Blood Count 3.22 x10^6/uL (3.50-5.40) Hemoglobin 11.3 g/dL (12.0-15.5) Hematocrit 33.8 % (36.0-47.0) Mean Corpuscular Volume 105 fL (79-100) Mean Corpuscular Hemoglobin 35 pg (25-35) Mean Corpuscular Hemoglobin Concent 33 g/dL (31-37) Red Cell Distribution Width 17.9 % (11.5-14.5) Platelet Count 158 x10^3/uL (140-400) Neutrophils (%) (Auto) 85 % (31-73) Lymphocytes (%) (Auto) 9 % (24-48) Monocytes (%) (Auto) 6 % (0-9) Eosinophils (%) (Auto) 1 % (0-3) Basophils (%) (Auto) 0 % (0-3) Neutrophils # (Auto) 6.8 x10^3/uL (1.8-7.7) Lymphocytes # (Auto) 0.7 x10^3/uL (1.0-4.8) Monocytes # (Auto) 0.5 x10^3/uL (0.0-1.1) Eosinophils # (Auto) 0.0 x10^3/uL (0.0-0.7) Basophils # (Auto) 0.0 x10^3/uL (0.0-0.2) Prothrombin Time 17.5 SEC (11.7-14.0) Prothromb Time International Ratio 1.5 (0.8-1.1) Activated Partial Thromboplast Time 32 SEC (24-38) Sodium Level 137 mmol/L (136-145) Potassium Level 4.5 mmol/L (3.5-5.1) Chloride Level 99 mmol/L (98-107) Carbon Dioxide Level 28 mmol/L (21-32) Anion Gap 10 (6-14) Blood Urea Nitrogen 24 mg/dL (7-20) Creatinine 1.3 mg/dL (0.6-1.0) Estimated GFR (Cockcroft-Gault) 39.2 BUN/Creatinine Ratio 18 (6-20) Glucose Level 242 mg/dL (70-99) Lactic Acid Level 1.3 mmol/L (0.4-2.0) Calcium Level 8.5 mg/dL (8.5-10.1) Phosphorus Level 3.9 mg/dL (2.6-4.7) Magnesium Level 1.9 mg/dL (1.8-2.4) Total Bilirubin 1.1 mg/dL (0.2-1.0) Aspartate Amino Transf (AST/SGOT) 5 U/L (15-37) Alanine Aminotransferase (ALT/SGPT) 10 U/L (14-59) Alkaline Phosphatase 51 U/L (46-116) Creatine Kinase 32 U/L (26-192) Troponin I High Sensitivity 8 ng/L (4-50) DA-Pua-G-Type Natriuretic Peptide 1647 pg/mL (0-449) Total Protein 7.3 g/dL (6.4-8.2) Albumin 3.1 g/dL (3.4-5.0) Albumin/Globulin Ratio 0.7 (1.0-1.7) Urine Collection Type U cath Urine Color Yellow Urine Clarity Cloudy Urine pH 5.5 (<5.0-8.0) Urine Specific [place] >=1.030 (1.000-1.030) Urine Protein 30 mg/dL (NEG-TRACE) Urine Glucose (UA) Negative mg/dL (NEG) Urine Ketones (Stick) Negative mg/dL (NEG) Urine Blood Moderate (NEG) Urine Nitrite Positive (NEG) Urine Bilirubin Small (NEG) Urine Urobilinogen Dipstick 0.2 mg/dL (0.2 mg/dL) Urine Leukocyte Esterase Small (NEG) Urine RBC Occ /HPF (0-2) Urine WBC Tntc /HPF (0-4) Urine Squamous Epithelial Cells Mod /LPF Urine Bacteria Many /HPF (0-FEW) Urine Mucus Slight /LPF O2 Saturation 94 % (92-99) Arterial Blood pH 7.32 (7.35-7.45) Arterial Blood pCO2 at Patient Temp 53 mmHg (35-46) Arterial Blood pO2 at Patient Temp 79 mmHg (65-108) Arterial Blood HCO3 27 mmol/L (21-28) Arterial Blood Base Excess 0 mmol/L (-3-3) FiO2 100 (nrb) Influenza Type A Antigen Negative (NEGATIVE) Influenza Type B Antigen Negative (NEGATIVE) SARS-CoV-2 Antigen (Rapid) Negative (NEGATIVE) Test 06/04/21 02:04 06/04/21 07:58 Glucose (Fingerstick) 281 mg/dL (70-99) 195 mg/dL (70-99) VTE Prophylaxis Ordered VTE Prophylaxis Devices: No VTE Pharmacological Prophylaxi: Yes Assessment/Plan Assessment/Plan sepsis, UTI pneumonia, HCAP, meds started, consuilt pulm CHF acute no chronic systolic Coaglupathy, congential, on eliquis morbid obesity, BMI 48 weakness and debility, syncope and fall, right knee injury, poss bone bruise. consult physiatry DM2 insulin dependent macrocytosis, give B complex vitamin Justifications for Admission Other Justification JEAN HARE MD Jun 04, 2021 09:56
[2021-06-04 11:00] VITALS: BP 145/69
[2021-06-04] MEDS ORDERED: LIDOCAINE (700MG/PATCH) PATCH. TD SCH (11:00)
[2021-06-04] MEDS: VITAMIN B12,B9,B6 COMPLEX 1 TABLET. PO SCH (12:18)
[2021-06-04] MEDS: LIDOCAINE (700MG/PATCH) PATCH. TD SCH (12:19)
[2021-06-04] MEDS: DICLOFENAC SODIUM 1% TOPICAL GEL 100GM TUBE. TP SCH ×2 (12:19→19:48)
[2021-06-04] MEDS: HYDROcodone/APAP 5/325MG 1 TAB TABLET PO PRN ×2 (12:59→19:46)
[2021-06-04] MEDS ORDERED: PIP/TAZO PER PHARMACY MC PRN (14:15)
--- NOTE | 2021-06-04 15:05 | PDOC2 ---
CONSULT Date of Consult Date of Consult DATE: 06/04/21 TIME: 14:58 Reason for Consult Reason for Consult: Syncope Referring Physician Referring Physician: Dr. Acevedo Identification/Chief Complaint Chief Complaint Syncope and right knee pain Source Source: Chart review, Patient History of Present Illness Reason for Visit: The patient is an 81-year-old female who reports episodes of dizziness and lightheadedness last evening. She then states she was in the bathroom and as she was getting up from the toilet she had a syncopal episode falling into the bat htub. Paramedics were called and they removed the patient from the bathtub and transferred her to the emergency room. The patient has an extensive medical history and reportedly was recently admitted to [facility] for weakness and fatigue. Her initial work-up included EKG that showed rate controlled atrial fibrillation but no ischemic changes. CT scan of the head and spine showed no acute abnormalities. Chest x-ray showed moderate infiltrates bilaterally with mild cardiomegaly. Troponin level was normal at 8. This morning the patient reports feeling better is more alert. Her major concern this morning is knee pain when she fell last night. She has extensive medical history including coronary artery disease, congestive heart failure, atrial fibr illation, hyperlipidemia and diabetes. She reports previous cardiac stenting. Past Medical History Cardiovascular: AFIB, CAD, CHF, HTN, Hyperlipidemia, Other (Coronary stents.) Pulmonary: Pneumonia, Other CENTRAL NERVOUS SYSTEM: Other GI: Constipation, GERD Heme/Onc: Anemia NOS, Other Hepatobiliary: No pertinent hx Psych: No pertinent hx Musculoskeletal: Osteoarthritis Rheumatologic: No pertinent hx Infectious disease: No pertinent hx Renal/: Chronic renal insuff Endocrine: Diabetes, Hypothyroidism Past Surgical History Past Surgical History: Appendectomy, Cataract Removal, Hernia Repair, Tonsillectomy, Hysterectomy, Other (Coronary stents.) Family History Family History: Heart Disease, Hypertension Social History No ALCOHOL: none Drugs: None Lives: with Family Current Problem List Problem List Problems Medical Problems: (1) Chronic respiratory failure with hypoxia, on home O2 therapy Status: Acute (2) Diabetes mellitus Status: Acute (3) Failure to thrive Status: Acute (4) Generalized weakness Status: Acute (5) Healthcare-associated pneumonia Status: Acute (6) Syncope Status: Acute (7) Urinary tract infection Status: Acute Current Medications Current Medications Current Medications Vancomycin HCl 1.5 gm/Sodium Chloride 500 ml @ 250 mls/hr 1X ONCE IV ; Start 06/03/21 at 23:00; Stop 06/04/21 at 00:59; Status UNV Piperacillin Sod/ Tazobactam Sod 4.5 gm/Sodium Chloride 100 ml @ 200 mls/hr 1X ONCE IV Last administered on 06/04/21at 00:02; Start 06/03/21 at 23:30; Stop 06/03/21 at 23:59; Status DC Furosemide (Lasix) 20 mg 1X ONCE IVP Last administered on 06/04/21at 00:00; Start 06/03/21 at 23:30; Stop 06/03/21 at 23:31; Status DC Vancomycin HCl (Vanco Per Pharmacy) 1 each PRN DAILY PRN MC SEE COMMENTS Last administered on 06/04/21at 04:55; Start 06/03/21 at 23:45 Vancomycin HCl 2 gm/Sodium Chloride 500 ml @ 250 mls/hr 1X ONCE IV Last administered on 06/04/21at 00:16; Start 06/04/21 at 00:00; Stop 06/04/21 at 01:59; Status DC Acetaminophen/ Hydrocodone Bitart (Lortab 5/325) 1 tab 1X ONCE PO Last administered on 06/04/21at 00:14; Start 06/04/21 at 00:30; Stop 06/04/21 at 00:31; Status DC Ondansetron HCl (Zofran) 4 mg PRN Q8HRS PRN IVP NAUSEA/VOMITING 1ST CHOICE; Start 06/04/21 at 01:45; Stop 06/05/21 at 01:44 Acetaminophen (Tylenol) 650 mg PRN Q6HRS PRN PO MILD PAIN / TEMP > 100.3'F; Start 06/04/21 at 01:45 Diphenhydramine HCl (Benadryl) 25 mg PRN Q6HRS PRN PO insomnia or itching Last administered on 06/04/21at 02:17; Start 06/04/21 at 01:45 Fentanyl Citrate (Fentanyl 2ml Vial) 50 mcg PRN Q4HRS PRN IVP SEVERE PAIN 7-10 Last administered on 06/04/21at 02:18; Start 06/04/21 at 01:45; Stop 06/04/21 at 04:58; Status DC Vancomycin HCl 2 gm/Sodium Chloride 500 ml @ 250 mls/hr Q24H IV ; Start 06/04/21 at 23:00 Vancomycin HCl (Vancomycin Trough Level) 1 each 1X ONCE MC ; Start 06/05/21 at 22:30; Stop 06/05/21 at 22:31 Fentanyl Citrate (Fentanyl 2ml Vial) 50 mcg PRN Q2HR PRN IVP SEVERE PAIN 7-10 Last administered on 06/04/21at 08:49; Start 06/04/21 at 05:00 Acetaminophen (Tylenol) 650 mg PRN QHS PRN PO MILD PAIN 1-3; Start 06/04/21 at 05:00 Apixaban (Eliquis) 2.5 mg BID PO Last administered on 06/04/21at 08:52; Start 06/04/21 at 09:00 Bumetanide (Bumex) 1 mg BID94 PO Last administered on 06/04/21at 08:53; Start 06/04/21 at 09:00 Celecoxib (CeleBREX) 100 mg PRN BID PRN PO INFLAMMATION; Start 06/04/21 at 05:00 Cyclosporine (Restasis) 1 drop BID OU ; Start 06/04/21 at 09:00 Levothyroxine Sodium (Synthroid) 88 mcg DAILY06 PO Last administered on 06/04/21at 05:41; Start 06/04/21 at 06:00 Losartan Potassium (Cozaar) 50 mg DAILY PO Last administered on 06/04/21at 08:51; Start 06/04/21 at 09:00 Magnesium Oxide (Magnesium Oxide) 400 mg DAILY PO Last administered on 06/04/21at 08:51; Start 06/04/21 at 09:00 Nitroglycerin (Nitrostat) 0.4 mg PRN Q5MIN PRN SL CHEST PAIN; Start 06/04/21 at 05:00 Carvedilol (Coreg) 25 mg BIDWMEALS PO Last administered on 06/04/21at 08:52; Start 06/04/21 at 08:00 Vitamin D (Vitamin D3) 1,000 unit DAILY PO Last administered on 06/04/21at 08:51; Start 06/04/21 at 09:00 Insulin Human Lispro (HumaLOG) 16 units TIDWMEALS SQ ; Start 06/04/21 at 08:00 Insulin Glargine (Lantus Syringe) 50 unit QHS SQ ; Start 06/04/21 at 21:00 Pantoprazole Sodium (Protonix) 40 mg DAILYAC PO Last administered on 06/04/21at 05:44; Start 06/04/21 at 07:30 Atorvastatin Calcium (Lipitor) 5 mg DAILY PO Last administered on 06/04/21at 08:53; Start 06/04/21 at 09:00 Dextrose (Dextrose 50%-Water Syringe) 12.5 gm PRN Q15MIN PRN IV SEE COMMENTS; Start 06/04/21 at 05:30 Dextrose (Iv Dextrose 5%) 250 ml PRN Q15MIN PRN IV SEE COMMENTS; Start 06/04/21 at 05:30 Info (Anti-Coagulation Monitoring By Pharmacy) 1 each PRN DAILY PRN MC PER PROTOCOL Last administered on 06/04/21at 05:33; Start 06/04/21 at 05:30 Vitamin B Complex (Folbic Tablet) 1 tab DAILY PO Last administered on 06/04/21at 12:18; Start 06/04/21 at 11:00 Lidocaine (Lidoderm) 1 patch DAILY TD Last administered on 06/04/21at 12:19; Start 06/04/21 at 11:30 Miscellaneous (Lidoderm Patch Removal) 1 ea QHS MC ; Start 06/04/21 at 21:00; Stop 06/04/21 at 10:43; Status DC Diclofenac Sodium (Voltaren) 1 laura BID TP Last administered on 06/04/21at 12:19; Start 06/04/21 at 11:30 Lidocaine (Lidoderm) 1 patch DAILY TD ; Start 06/04/21 at 11:00; Status Cancel Miscellaneous (Lidoderm Patch Removal) 1 ea QHS MC ; Start 06/04/21 at 21:00 Acetaminophen/ Hydrocodone Bitart (Lortab 5/325) 1 tab PRN Q4HRS PRN PO PAIN; Start 06/04/21 at 10:45 Acetaminophen/ Hydrocodone Bitart (Lortab 5/325) 2 tab PRN Q4HRS PRN PO PAIN Last administered on 06/04/21at 12:59; Start 06/04/21 at 10:45 Nystatin (Nystop) 1 laura BID TP ; Start 06/04/21 at 14:00 Piperacillin Sod/ Tazobactam Sod (Zosyn Per Pharmacy) 1 each PRN DAILY PRN MC SEE COMMENTS; Start 06/04/21 at 14:15 Piperacillin Sod/ Tazobactam Sod 4.5 gm/Sodium Chloride 100 ml @ 200 mls/hr Q6HRS IV ; Start 06/04/21 at 16:00 Lactobacillus Rhamnosus (Culturelle) 1 cap BID PO ; Start 06/04/21 at 21:00 Active Scripts Active Reported Bumetanide 1 Mg Tablet 1 Mg PO BID Carvedilol 25 Mg Tablet 25 Mg PO BIDWMEALS Eliquis (Apixaban) 2.5 Mg Tablet 2.5 Mg PO BID Restasis (Cyclosporine) 1 Each Droperette 1 Drop EACHEYE BID Tylenol (Acetaminophen) 325 Mg Tablet 650 Mg PO QHS PRN Magnesium Oxide 400 Mg Tablet 400 Mg PO DAILY Protonix (Pantoprazole Sodium) 20 Mg Tablet.dr 40 Mg PO DAILY Novolog (Insulin Aspart) 100 Unit/1 Ml Cartridge 16 Unit SQ TIDAC Lantus Solostar (Insulin Glargine,Hum.rec.anlog) 100 Unit/1 Ml Insuln.pen 50 Unit SQ QHS Novolog Flexpen (Insulin Aspart) 100 Unit/1 Ml Insuln.pen 0 SQ TIDWMEALS PRN Celebrex (Celecoxib) 100 Mg Capsule 1 Cap PO PRN BID Nitrostat (Nitroglycerin) 0.4 Mg Tab.subl 1 Tab SL UD PRN Vitamin D (Cholecalciferol (Vitamin D3)) 1,000 Unit Capsule 1 Cap PO DAILY Losartan Potassium 50 Mg Tablet 50 Mg PO DAILY Synthroid (Levothyroxine Sodium) 88 Mcg Tablet 1 Tab PO DAILY Gave this morning Take tomorrow Pravastatin Sodium 20 Mg Tablet 1 Tab PO DAILY Allergies Allergies: Coded Allergies: I S O L A T I O N *CONTACT* (Verified Allergy, Unknown, 01/10/18) +MRSA nares 05/13/09 No Known Medication Allergies (Verified Allergy, Unknown, 01/10/18) ROS General: YES: Fatigue Neurological: Yes Dizziness, Yes Other (Syncope) Physical Exam General: mild distress HEENT: Atraumatic Lungs: Clear to auscultation Heart: Other (Irregularly irregular rate of 80) Abdomen: Normal bowel sounds Vitals VITALS Vital Signs Date Time Temp Pulse Resp B/P (MAP) Pulse Ox O2 Delivery O2 Flow Rate FiO2 2/26/22 11:00 97.8 72 21 145/69 (94) 95 Nasal Cannula 6.0 97.8 Labs Labs Laboratory Tests Test 06/03/21 21:30 06/03/21 22:20 06/03/21 23:15 06/04/21 01:20 White Blood Count 8.0 x10^3/uL (4.0-11.0) Red Blood Count 3.22 x10^6/uL (3.50-5.40) Hemoglobin 11.3 g/dL (12.0-15.5) Hematocrit 33.8 % (36.0-47.0) Mean Corpuscular Volume 105 fL (79-100) Mean Corpuscular Hemoglobin 35 pg (25-35) Mean Corpuscular Hemoglobin Concent 33 g/dL (31-37) Red Cell Distribution Width 17.9 % (11.5-14.5) Platelet Count 158 x10^3/uL (140-400) Neutrophils (%) (Auto) 85 % (31-73) Lymphocytes (%) (Auto) 9 % (24-48) Monocytes (%) (Auto) 6 % (0-9) Eosinophils (%) (Auto) 1 % (0-3) Basophils (%) (Auto) 0 % (0-3) Neutrophils # (Auto) 6.8 x10^3/uL (1.8-7.7) Lymphocytes # (Auto) 0.7 x10^3/uL (1.0-4.8) Monocytes # (Auto) 0.5 x10^3/uL (0.0-1.1) Eosinophils # (Auto) 0.0 x10^3/uL (0.0-0.7) Basophils # (Auto) 0.0 x10^3/uL (0.0-0.2) Prothrombin Time 17.5 SEC (11.7-14.0) Prothromb Time International Ratio 1.5 (0.8-1.1) Activated Partial Thromboplast Time 32 SEC (24-38) Sodium Level 137 mmol/L (136-145) Potassium Level 4.5 mmol/L (3.5-5.1) Chloride Level 99 mmol/L (98-107) Carbon Dioxide Level 28 mmol/L (21-32) Anion Gap 10 (6-14) Blood Urea Nitrogen 24 mg/dL (7-20) Creatinine 1.3 mg/dL (0.6-1.0) Estimated GFR (Cockcroft-Gault) 39.2 BUN/Creatinine Ratio 18 (6-20) Glucose Level 242 mg/dL (70-99) Lactic Acid Level 1.3 mmol/L (0.4-2.0) Calcium Level 8.5 mg/dL (8.5-10.1) Phosphorus Level 3.9 mg/dL (2.6-4.7) Magnesium Level 1.9 mg/dL (1.8-2.4) Total Bilirubin 1.1 mg/dL (0.2-1.0) Aspartate Amino Transf (AST/SGOT) 5 U/L (15-37) Alanine Aminotransferase (ALT/SGPT) 10 U/L (14-59) Alkaline Phosphatase 51 U/L (46-116) Creatine Kinase 32 U/L (26-192) Troponin I High Sensitivity 8 ng/L (4-50) QO-Xgc-O-Type Natriuretic Peptide 1647 pg/mL (0-449) Total Protein 7.3 g/dL (6.4-8.2) Albumin 3.1 g/dL (3.4-5.0) Albumin/Globulin Ratio 0.7 (1.0-1.7) Urine Collection Type U cath Urine Color Yellow Urine Clarity Cloudy Urine pH 5.5 (<5.0-8.0) Urine Specific [place] >=1.030 (1.000-1.030) Urine Protein 30 mg/dL (NEG-TRACE) Urine Glucose (UA) Negative mg/dL (NEG) Urine Ketones (Stick) Negative mg/dL (NEG) Urine Blood Moderate (NEG) Urine Nitrite Positive (NEG) Urine Bilirubin Small (NEG) Urine Urobilinogen Dipstick 0.2 mg/dL (0.2 mg/dL) Urine Leukocyte Esterase Small (NEG) Urine RBC Occ /HPF (0-2) Urine WBC Tntc /HPF (0-4) Urine Squamous Epithelial Cells Mod /LPF Urine Bacteria Many /HPF (0-FEW) Urine Mucus Slight /LPF O2 Saturation 94 % (92-99) Arterial Blood pH 7.32 (7.35-7.45) Arterial Blood pCO2 at Patient Temp 53 mmHg (35-46) Arterial Blood pO2 at Patient Temp 79 mmHg (65-108) Arterial Blood HCO3 27 mmol/L (21-28) Arterial Blood Base Excess 0 mmol/L (-3-3) FiO2 100 (nrb) Influenza Type A Antigen Negative (NEGATIVE) Influenza Type B Antigen Negative (NEGATIVE) SARS-CoV-2 Antigen (Rapid) Negative (NEGATIVE) Test 06/04/21 02:04 06/04/21 07:58 06/04/21 12:15 Glucose (Fingerstick) 281 mg/dL (70-99) 195 mg/dL (70-99) 161 mg/dL (70-99) Laboratory Tests Test 06/03/21 21:30 06/03/21 22:20 06/03/21 23:15 06/04/21 01:20 White Blood Count 8.0 x10^3/uL (4.0-11.0) Red Blood Count 3.22 x10^6/uL (3.50-5.40) Hemoglobin 11.3 g/dL (12.0-15.5) Hematocrit 33.8 % (36.0-47.0) Mean Corpuscular Volume 105 fL (79-100) Mean Corpuscular Hemoglobin 35 pg (25-35) Mean Corpuscular Hemoglobin Concent 33 g/dL (31-37) Red Cell Distribution Width 17.9 % (11.5-14.5) Platelet Count 158 x10^3/uL (140-400) Neutrophils (%) (Auto) 85 % (31-73) Lymphocytes (%) (Auto) 9 % (24-48) Monocytes (%) (Auto) 6 % (0-9) Eosinophils (%) (Auto) 1 % (0-3) Basophils (%) (Auto) 0 % (0-3) Neutrophils # (Auto) 6.8 x10^3/uL (1.8-7.7) Lymphocytes # (Auto) 0.7 x10^3/uL (1.0-4.8) Monocytes # (Auto) 0.5 x10^3/uL (0.0-1.1) Eosinophils # (Auto) 0.0 x10^3/uL (0.0-0.7) Basophils # (Auto) 0.0 x10^3/uL (0.0-0.2) Prothrombin Time 17.5 SEC (11.7-14.0) Prothromb Time International Ratio 1.5 (0.8-1.1) Activated Partial Thromboplast Time 32 SEC (24-38) Sodium Level 137 mmol/L (136-145) Potassium Level 4.5 mmol/L (3.5-5.1) Chloride Level 99 mmol/L (98-107) Carbon Dioxide Level 28 mmol/L (21-32) Anion Gap 10 (6-14) Blood Urea Nitrogen 24 mg/dL (7-20) Creatinine 1.3 mg/dL (0.6-1.0) Estimated GFR (Cockcroft-Gault) 39.2 BUN/Creatinine Ratio 18 (6-20) Glucose Level 242 mg/dL (70-99) Lactic Acid Level 1.3 mmol/L (0.4-2.0) Calcium Level 8.5 mg/dL (8.5-10.1) Phosphorus Level 3.9 mg/dL (2.6-4.7) Magnesium Level 1.9 mg/dL (1.8-2.4) Total Bilirubin 1.1 mg/dL (0.2-1.0) Aspartate Amino Transf (AST/SGOT) 5 U/L (15-37) Alanine Aminotransferase (ALT/SGPT) 10 U/L (14-59) Alkaline Phosphatase 51 U/L (46-116) Creatine Kinase 32 U/L (26-192) Troponin I High Sensitivity 8 ng/L (4-50) EX-Ozf-E-Type Natriuretic Peptide 1647 pg/mL (0-449) Total Protein 7.3 g/dL (6.4-8.2) Albumin 3.1 g/dL (3.4-5.0) Albumin/Globulin Ratio 0.7 (1.0-1.7) Urine Collection Type U cath Urine Color Yellow Urine Clarity Cloudy Urine pH 5.5 (<5.0-8.0) Urine Specific [place] >=1.030 (1.000-1.030) Urine Protein 30 mg/dL (NEG-TRACE) Urine Glucose (UA) Negative mg/dL (NEG) Urine Ketones (Stick) Negative mg/dL (NEG) Urine Blood Moderate (NEG) Urine Nitrite Positive (NEG) Urine Bilirubin Small (NEG) Urine Urobilinogen Dipstick 0.2 mg/dL (0.2 mg/dL) Urine Leukocyte Esterase Small (NEG) Urine RBC Occ /HPF (0-2) Urine WBC Tntc /HPF (0-4) Urine Squamous Epithelial Cells Mod /LPF Urine Bacteria Many /HPF (0-FEW) Urine Mucus Slight /LPF O2 Saturation 94 % (92-99) Arterial Blood pH 7.32 (7.35-7.45) Arterial Blood pCO2 at Patient Temp 53 mmHg (35-46) Arterial Blood pO2 at Patient Temp 79 mmHg (65-108) Arterial Blood HCO3 27 mmol/L (21-28) Arterial Blood Base Excess 0 mmol/L (-3-3) FiO2 100 (nrb) Influenza Type A Antigen Negative (NEGATIVE) Influenza Type B Antigen Negative (NEGATIVE) SARS-CoV-2 Antigen (Rapid) Negative (NEGATIVE) Test 06/04/21 02:04 06/04/21 07:58 06/04/21 12:15 Glucose (Fingerstick) 281 mg/dL (70-99) 195 mg/dL (70-99) 161 mg/dL (70-99) Images Images As above. Assessment/Plan Assessment/Plan 1. Syncopal episode as noted above. The patient has a apparent chronic atrial fibrillation and has remained rate control overnight. CT scan of the head and neck has shown no acute changes. The patient reports feeling better today. We will continue present treatment and monitoring. 2. Probable pneumonia. Patient has been started on antibiotics and pulmonary treatments. 3. History of heart failure. Mild cardiomegaly on imaging studies. Will attempt to obtain records from [facility]. We will continue present medications at this time. 4. Rate controlled atrial fibrillation. Continuing present treatment. 5. History of coronary artery disease with reported coronary stenting. Normal troponin level at 8. No acute ischemic changes on EKG. 6. Hyperlipidemia. We will continue present medications and check morning lab. 7. Diabetes mellitus. As per the primary service. CAM CAMPBELL MD Jun 04, 2021 15:05
--- NOTE | 2021-06-04 16:13 | CONS ---
DATE OF CONSULTATION: 06/04/2021 ATTENDING PHYSICIAN: Dr. Acevedo. REASON FOR CONSULTATION: The patient was seen at the request of Dr. Acevedo for rehab evaluation. HISTORY OF PRESENT ILLNESS: This is an 81-year-old female admitted through the Emergency Room on 06/04/2021. The patient fell after feeling dizzy while in the bathroom and complains of right knee pain. The patient with chronic respiratory failure, uses oxygen by nasal cannula up to 4 liters per minute. Still gets desaturated with activity. The patient had to have emergency medical service personnel to come and get her up out of the bathtub. The patient had chronic knee joint pains. The patient is status post bilateral total knee arthroplasty in the past and she also admits chronic back pain. The patient denies any back pain at the present time. She admits mainly right knee pain. She admits numbness in her feet. The patient with known atrial fibrillation, coronary artery disease, congestive heart failure, hypertension, hyperlipidemia, chronic constipation, gastroesophageal reflux disease, anemia, osteoarthritis, chronic renal insufficiency, diabetes mellitus, hypothyroidism, status post appendectomy, cataract removal, hernia repair, tonsillectomy, hysterectomy, family history of heart disease and hypertension. The patient was recently admitted earlier this month at [facility]. The patient had x-rays of her right knee, which failed to reveal any acute abnormality. No loosening of the prosthetic components were noted. It revealed enthesopathy around the patella. The patient had degenerative disk disease and degenerative joint disease of cervical vertebrae as per CT scan of cervical vertebrae and pulmonary edema as per chest x-ray. The patient lives with her . No stairs per her to manage. PHYSICAL EXAMINATION: GENERAL: Revealed an elderly female. She is alert and oriented to place and person, follows commands appropriately. NEUROLOGIC: Moves all 4 extremities voluntarily, though she is protecting her right knee to a significant degree. Does not want to move it. Significant limitation of right knee joint range of motion. She had diffuse tenderness to palpation at right knee. The patient had edema of her feet and legs. The patient had pain free range of motion of both hip joints. Overall, she had 4/5 to 4+/5 grade muscle strength. Deep tendon reflexes are decreased overall with absent knee and ankle jerks and she had decreased touch and pinprick sensation over a sock and glove distribution. She requires some help with bed mobility. I have not tested her transfers or ambulation skills at present time. She is using oxygen by nasal cannula and she had an indwelling Arredondo catheter in place. ASSESSMENT: Fall with sprain, right knee. The patient is status post bilateral total knee arthroplasty and also diabetes mellitus with peripheral neuropathy, chronic respiratory failure, chronic lower back pain from degenerative disk disease and degenerative joint disease and also radiological evidence of degenerative disk disease and degenerative joint disease of cervical vertebrae without any clinical evidence of cervical radiculopathy, obesity, atrial fibrillation, coronary artery disease, congestive heart failure, pulmonary edema, hypertension, hyperlipidemia, gastroesophageal reflux disease, anemia, chronic constipation, chronic renal insufficiency, and hypothyroidism. RECOMMENDATIONS: To obtain hinged knee brace to protect her right knee. Agree with the plans for physical therapy and occupational therapy, to also try Lidoderm patch to her right knee and diclofenac cream. Dr. Acevedo, I appreciate asking me to participate in the care of this interesting patient. I will be glad to see her for followup with you on as-needed basis. GENESIS/JIMMY HOLM: Kelsie TID: [id number]
[2021-06-04] MEDS: PIPERACILLIN/TAZOBACTAM 4.5 GM in IV DEXTROSE 5% 100ML 100 ML IV SCH (17:49)
[2021-06-04] MEDS: NYSTATIN TOPICAL POWDER 15GM BOTTLE. TP SCH ×2 (17:49→19:48)
[2021-06-04 19:26] VITALS: BP 117/70
[2021-06-04] MEDS: LACTOBACILLUS RHAMNOSUS GG 1 CAPSULE. PO SCH (19:46)
[2021-06-04] MEDS: INSULIN GLARGINE SYRINGE. SQ SCH (20:03)
[2021-06-04] MEDS: PATCH REMOVAL. MC SCH (20:04)
[2021-06-04] MEDS ORDERED: PATCH REMOVAL. MC SCH (21:00)
[2021-06-04 22:35] VITALS: BP 98/51
[2021-06-04] MEDS: VANCOMYCIN 2 GM in IV NORMAL SALINE 500ML BAG 500 ML IV SCH (23:24)
[2021-06-05] MEDS: PIPERACILLIN/TAZOBACTAM 4.5 GM in IV DEXTROSE 5% 100ML 100 ML IV SCH ×2 (00:34→05:38)
[2021-06-05] MEDS: HYDROcodone/APAP 5/325MG 1 TAB TABLET PO PRN ×5 (00:34→21:38)
[2021-06-05 02:49] VITALS: BP 127/56
[2021-06-05 05:18] LABS: BASO % 0 % (0-3); EOS # 0.1 x10^3/uL (0.0-0.7); EOS % 2 % (0-3); HEMATOCRIT 30.9 % (36.0-47.0); HEMOGLOBIN 9.9 g/dL (12.0-15.5); LYMPH # 0.7 x10^3/uL (1.0-4.8); LYMPH % 13 % (24-48); MEAN CORPUSCULAR HEMOGLOBIN 34 pg (25-35); MEAN CORPUSCULAR HGB CONC 32 g/dL (31-37); MEAN CORPUSCULAR VOLUME 107 fL (79-100); MONO # 0.6 x10^3/uL (0.0-1.1); MONO % 11 % (0-9); NEUT # 4.1 x10^3/uL (1.8-7.7); NEUT % 74 % (31-73); PLATELET COUNT 122 x10^3/uL (140-400); RED BLOOD COUNT 2.88 x10^6/uL (3.50-5.40); RED CELL DISTRIBUTION WIDTH 17.9 % (11.5-14.5); WHITE BLOOD COUNT 5.5 x10^3/uL (4.0-11.0)
[2021-06-05] MEDS: PANTOPRAZOLE 40 MG TABLET.DR. PO SCH (05:37)
[2021-06-05] MEDS: LEVOTHYROXINE 88 MCG TABLET PO SCH (05:37)
[2021-06-05 05:46] LABS: ALBUMIN 2.9 g/dL (3.4-5.0); ALBUMIN/GLOBULIN RATIO 0.7 (1.0-1.7); CALCIUM 8.2 mg/dL (8.5-10.1); CREATININE 1.7 mg/dL (0.6-1.0); GFR 28.8; POTASSIUM 4.7 mmol/L (3.5-5.1); TOTAL BILIRUBIN 0.7 mg/dL (0.2-1.0); TOTAL PROTEIN 6.8 g/dL (6.4-8.2)
[2021-06-05 06:22] VITALS: BP 144/64
[2021-06-05] MEDS: SODIUM CHLORIDE 0.65% NASAL SPRAY 45ML BOTTLE. NS PRN (06:33)
[2021-06-05] MEDS: CELECOXIB 100 MG CAPSULE. PO PRN (06:39)
[2021-06-05] MEDS: VANCOMYCIN PER PHARMACY MC PRN ×2 (07:49→23:57)
[2021-06-05] MEDS: INSULIN LISPRO 300 UNITS/3 ML VIAL. SQ SCH ×3 (08:00→17:00)
--- NOTE | 2021-06-05 08:25 | CONS ---
DATE OF CONSULTATION: 06/05/2021 REASON FOR CONSULTATION: I was asked to see this 81-year-old lady for acute on chronic respiratory failure. HISTORY OF PRESENT ILLNESS: She is a lifelong nonsmoker. She is on oxygen 4 liters per minute via nasal cannula. She has sleep apnea, has a CPAP machine at home, but does not use it. She is claustrophobic. Apparently, she had a syncopal episode, fell in the bathroom. EMS was called. She was brought to Emergency Room. She has atrial fibrillation, is on Eliquis. She has occasional cough, but not much sputum production. She denies fever and chills. She has had more lower extremity edema. PAST MEDICAL HISTORY: Atrial fibrillation, coronary artery disease, CHF, hypertension, hyperlipidemia, gastroesophageal reflux disease, obstructive sleep apnea-hypopnea syndrome, diabetes mellitus, hypothyroidism. ALLERGIES: No known drug allergies. MEDICATIONS: Currently, she is on vancomycin, Zosyn, Voltaren, Lipitor, vitamin D, losartan, Eliquis, Bumex, insulin, Coreg, Protonix, levothyroxine, Nitrostat p.r.n. SOCIAL HISTORY: She is a lifelong nonsmoker. FAMILY HISTORY: Hypertension. REVIEW OF SYSTEMS: As mentioned as above, apparently she has been taking her 's narcotics. Other systems otherwise negative. PHYSICAL EXAMINATION: GENERAL: An obese lady. VITAL SIGNS: She is on 8 liters of oxygen with O2 saturation of 97%, respiratory rate is 18, heart rate 77, blood pressure 144/64, temperature 98.5. HEENT: Normocephalic, atraumatic. Pupils equal, round, reactive to light. There is shallow oropharynx. Nose is clear. NECK: Positive JVD. No lymphadenopathy or thyromegaly. CARDIOVASCULAR: Irregularly irregular rhythm. CHEST: Inspection is normal. LUNGS: There are bibasilar crackles, dullness at the bases. ABDOMEN: Soft and obese. Bowel sounds are good. EXTREMITIES: There is a 4+ edema, chronic changes. LYMPHATICS: There is no lymphadenopathy. SKIN: Chronic changes. NEUROLOGIC: Alert and oriented. LABORATORY DATA: I reviewed the following lab data: Chest x-ray shows bilateral infiltrate, effusion, atelectasis. WBC 5.5, hemoglobin 9.9, platelet 158. ABG: pH 7.32, pCO2 of 53, pO2 of 79. Sodium 135, potassium 4.7, chloride 98, CO2 of 31, BUN 29, creatinine 1.7, lactic acid 1.3. BNP 1647. Troponin 8, which is within normal limit. Albumin 2.9, total bilirubin 0.7, AST 9, ALT 9, alkaline phosphatase 45, influenza A and B negative. Rapid COVID testing negative. Chest x-ray shows bilateral infiltrate, effusion, atelectasis. IMPRESSION: 1. Acute on chronic respiratory failure secondary to acute diastolic congestive heart failure, rule out pneumonia. She had a syncopal episode ? aspiration pneumonitis. 2. Abnormal chest x-ray. 3. Acute diastolic congestive heart failure. 4. Atrial fibrillation. 5. Hypertension. 6. Obstructive sleep apnea-hypopnea syndrome, obesity hypoventilation syndrome. 7. Gastroesophageal reflux disease. 8. Acute kidney injury. PLAN AND RECOMMENDATIONS: 1. Titrate FiO2 to keep O2 saturation 90%. Avoid over oxygenation as she is a CO2 retainer. 2. I agree with Bumex to keep intake less than output. Monitor potassium and creatinine. 3. Cardiology is consulted, need to obtain records from [facility]. 4. Continue antibiotics for now. We will do MRSA screen. 5. Incentive spirometer to use multiple times an hour. 6. Lose weight and exercise. 7. Obstructive sleep apnea-hypopnea syndrome. The importance of treatment was discussed with the patient. I do recommend she continue using CPAP during sleep. 8. She is on Eliquis. 9. Protonix for stress ulcer prophylaxis. 10. The findings and recommendations were discussed with the patient and RN. Thank you very much for allowing me to participate in care of this very nice lady. FARIDA HOLM: Bere TID: [id number]
[2021-06-05] MEDS: CHOLECALCIFEROL (VITAMIN D3) 1,000 UNIT TABLET PO SCH (08:35)
[2021-06-05] MEDS: MAGNESIUM OXIDE 400 MG TABLET PO SCH (08:35)
[2021-06-05] MEDS: LACTOBACILLUS RHAMNOSUS GG 1 CAPSULE. PO SCH ×2 (08:35→21:16)
[2021-06-05] MEDS: ATORVASTATIN CALCIUM 10 MG TABLET. PO SCH (08:36)
[2021-06-05] MEDS: APIXABAN 2.5 MG TABLET. PO SCH ×2 (08:36→21:16)
[2021-06-05] MEDS: CARVEDILOL 12.5 MG TABLET. PO SCH ×2 (08:37→16:43)
[2021-06-05] MEDS: LIDOCAINE (700MG/PATCH) PATCH. TD SCH (08:38)
[2021-06-05] MEDS: NYSTATIN TOPICAL POWDER 15GM BOTTLE. TP SCH ×2 (08:45→21:17)
[2021-06-05] MEDS: DICLOFENAC SODIUM 1% TOPICAL GEL 100GM TUBE. TP SCH ×2 (08:46→21:17)
--- NOTE | 2021-06-05 09:05 | NUR ---
AM insulin Lispro 16 units on hold, Blood sugar- 144. Pt. did not eat breakfast.
[2021-06-05] MEDS: BUMETANIDE 1 MG TABLET. PO SCH ×2 (10:31→16:43)
[2021-06-05] MEDS: VITAMIN B12,B9,B6 COMPLEX 1 TABLET. PO SCH (10:31)
[2021-06-05] MEDS: LOSARTAN POTASSIUM 50 MG TABLET. PO SCH (10:32)
[2021-06-05] MEDS: cycloSPORINE 0.05% OPHTH DROPERETTE. OU SCH ×2 (10:32→21:16)
[2021-06-05 11:05] VITALS: BP 128/57
[2021-06-05] MEDS: PIPERACILLIN/TAZOBACTAM 3.375 GM in IV NORMAL SALINE 50ML 50 ML IV SCH ×3 (12:20→23:32)
--- NOTE | 2021-06-05 12:38 | PDOC ---
[employer] PROGRESS NOTE Date of Service DOS: DATE: 06/05/21 TIME: 12:36 Chief Complaint Chief Complaint sepsis, UTI pneumonia, HCAP, broad abx CHF chronic combined, with afib, Coaglupathy, NOS, on eliquis morbid obesity, BMI 47 weakness and debility, syncope and fall, right knee injury, poss bone bruise. consult physiatry DM2 insulin dependent macrocytosis, CKD 3-4 History of Present Illness History of Present Illness complains of knee pain, poor mobility, pain meds help and lidoderm patch helps her , [place], is here today try to improve above problmes Vitals/I&O Vitals/I&O: Vital Signs Date Time Temp Pulse Resp B/P (MAP) Pulse Ox O2 Delivery O2 Flow Rate FiO2 06/05/21 11:05 97.9 77 18 128/57 (80) 93 Nasal Cannula 8.0 97.9 I & O 06/04/21 06/04/21 06/05/21 15:00 23:00 07:00 Intake Total 0 ml 0 ml Output Total 250 ml 800 ml Balance -250 ml 0 ml -800 ml Physical Exam General: mild distress Heart: Other (Irregularly irregular rate of 80) Lungs: Clear Abdomen: Normal bowel sounds Extremities: No cyanosis, Normal pulses, Other (edema) Skin: No rashes Labs Labs: Laboratory Tests Test 06/04/21 19:51 06/05/21 04:00 06/05/21 05:38 06/05/21 07:30 Glucose (Fingerstick) 175 mg/dL (70-99) 146 mg/dL (70-99) 144 mg/dL (70-99) White Blood Count 5.5 x10^3/uL (4.0-11.0) Red Blood Count 2.88 x10^6/uL (3.50-5.40) Hemoglobin 9.9 g/dL (12.0-15.5) Hematocrit 30.9 % (36.0-47.0) Mean Corpuscular Volume 107 fL (79-100) Mean Corpuscular Hemoglobin 34 pg (25-35) Mean Corpuscular Hemoglobin Concent 32 g/dL (31-37) Red Cell Distribution Width 17.9 % (11.5-14.5) Platelet Count 122 x10^3/uL (140-400) Neutrophils (%) (Auto) 74 % (31-73) Lymphocytes (%) (Auto) 13 % (24-48) Monocytes (%) (Auto) 11 % (0-9) Eosinophils (%) (Auto) 2 % (0-3) Basophils (%) (Auto) 0 % (0-3) Neutrophils # (Auto) 4.1 x10^3/uL (1.8-7.7) Lymphocytes # (Auto) 0.7 x10^3/uL (1.0-4.8) Monocytes # (Auto) 0.6 x10^3/uL (0.0-1.1) Eosinophils # (Auto) 0.1 x10^3/uL (0.0-0.7) Basophils # (Auto) 0.0 x10^3/uL (0.0-0.2) Sodium Level 135 mmol/L (136-145) Potassium Level 4.7 mmol/L (3.5-5.1) Chloride Level 98 mmol/L (98-107) Carbon Dioxide Level 31 mmol/L (21-32) Anion Gap 6 (6-14) Blood Urea Nitrogen 29 mg/dL (7-20) Creatinine 1.7 mg/dL (0.6-1.0) Estimated GFR (Cockcroft-Gault) 28.8 BUN/Creatinine Ratio 17 (6-20) Glucose Level 156 mg/dL (70-99) Calcium Level 8.2 mg/dL (8.5-10.1) Total Bilirubin 0.7 mg/dL (0.2-1.0) Aspartate Amino Transf (AST/SGOT) 9 U/L (15-37) Alanine Aminotransferase (ALT/SGPT) 9 U/L (14-59) Alkaline Phosphatase 45 U/L (46-116) Total Protein 6.8 g/dL (6.4-8.2) Albumin 2.9 g/dL (3.4-5.0) Albumin/Globulin Ratio 0.7 (1.0-1.7) Test 06/05/21 11:37 Glucose (Fingerstick) 159 mg/dL (70-99) Assessment and Plan Assessmemt and Plan Problems Medical Problems: (1) Chronic respiratory failure with hypoxia, on home O2 therapy Status: Acute (2) Diabetes mellitus Status: Acute (3) Failure to thrive Status: Acute (4) Generalized weakness Status: Acute (5) Healthcare-associated pneumonia Status: Acute (6) Syncope Status: Acute (7) Urinary tract infection Status: Acute Comment Review of Relevant I have reviewed the following items ashwini (where applicable) has been applied. Medications: Current Medications Medications (Trade) Dose Ordered Sig/Massimo Route PRN Reason Start Time Stop Time Status Last Admin Dose Admin Vancomycin HCl 2 gm/Sodium Chloride 500 ml @ 250 mls/hr Q24H IV 06/04/21 23:00 06/04/21 23:24 Insulin Glargine (Lantus Syringe) 50 unit QHS SQ 06/04/21 21:00 06/04/21 20:03 Miscellaneous (Lidoderm Patch Removal) 1 ea QHS MC 06/04/21 21:00 06/04/21 20:04 Nystatin (Nystop) 1 laura BID TP 06/04/21 14:00 06/05/21 08:45 Piperacillin Sod/ Tazobactam Sod 4.5 gm/Dextrose 100 ml @ 200 mls/hr Q6HRS IV 06/04/21 16:00 06/05/21 07:44 DC 06/05/21 05:38 Lactobacillus Rhamnosus (Culturelle) 1 cap BID PO 06/04/21 21:00 06/05/21 08:35 Sodium Chloride (Saline Mist Nasal) 1 laura PRN Q1HR PRN NS NASAL CONGESTION 06/04/21 19:45 06/05/21 06:33 Piperacillin Sod/ Tazobactam Sod 3.375 gm/Sodium Chloride 50 ml @ 100 mls/hr Q6HRS IV 06/05/21 12:00 06/05/21 12:20 Justifications for Admission Other Justification JEAN HARE MD Jun 05, 2021 12:38
--- NOTE | 2021-06-05 12:38 | NUR ---
This nurse holding 12pm insulin, pt. didn't each lunch, states doesn't feel like eating, just ate a banana in the morning.
--- NOTE | 2021-06-05 14:47 | PDOC ---
PROGRESS NOTES Date of Service DATE: 06/05/21 TIME: 14:45 Subjective Subjective Patient seen and examined Objective Objective Vital Signs Date Time Temp Pulse Resp B/P (MAP) Pulse Ox O2 Delivery O2 Flow Rate FiO2 06/05/21 11:05 97.9 77 18 128/57 (80) 93 Nasal Cannula 8.0 97.9 Intake and Output 06/05/21 07:00 Intake Total 0 ml Output Total 1050 ml Balance -1050 ml Intake Oral 0 ml Output Urine Total 1050 ml Physical Exam Abdomen: Normal bowel sounds Heart: Regular rate General: No acute distress Lungs: Other (Mildly decreased breath sounds) Assessment Assessment Problems Medical Problems: (1) Chronic respiratory failure with hypoxia, on home O2 therapy Status: Acute (2) Diabetes mellitus Status: Acute (3) Failure to thrive Status: Acute (4) Generalized weakness Status: Acute (5) Healthcare-associated pneumonia Status: Acute (6) Syncope Status: Acute (7) Urinary tract infection Status: Acute 1. Outpatient syncopal episode as noted above. The patient has a apparent chronic atrial fibrillation and has remained rate control overnight. CT scan of the head and neck has shown no acute changes. The patient reports continuing to feel better today. We will continue present treatment and monitoring. 2. Probable pneumonia. Patient has been started on antibiotics and pulmonary treatments. 3. History of heart failure. Mild cardiomegaly on imaging studies. Will attempt to obtain records from [facility]. We will continue present medications at this time. 4. Rate controlled atrial fibrillation. Continuing present treatment. 5. History of coronary artery disease with reported coronary stenting. Normal troponin level at 8. No acute ischemic changes on EKG. 6. Hyperlipidemia. We will continue present medications and check morning lab. 7. Diabetes mellitus. As per the primary service. Comment Review of Relevant I have reviewed the following items ashwini (where applicable) has been applied. Labs Laboratory Tests Test 06/03/21 21:30 06/03/21 22:20 06/03/21 23:15 06/04/21 01:20 White Blood Count 8.0 x10^3/uL (4.0-11.0) Red Blood Count 3.22 x10^6/uL (3.50-5.40) Hemoglobin 11.3 g/dL (12.0-15.5) Hematocrit 33.8 % (36.0-47.0) Mean Corpuscular Volume 105 fL (79-100) Mean Corpuscular Hemoglobin 35 pg (25-35) Mean Corpuscular Hemoglobin Concent 33 g/dL (31-37) Red Cell Distribution Width 17.9 % (11.5-14.5) Platelet Count 158 x10^3/uL (140-400) Neutrophils (%) (Auto) 85 % (31-73) Lymphocytes (%) (Auto) 9 % (24-48) Monocytes (%) (Auto) 6 % (0-9) Eosinophils (%) (Auto) 1 % (0-3) Basophils (%) (Auto) 0 % (0-3) Neutrophils # (Auto) 6.8 x10^3/uL (1.8-7.7) Lymphocytes # (Auto) 0.7 x10^3/uL (1.0-4.8) Monocytes # (Auto) 0.5 x10^3/uL (0.0-1.1) Eosinophils # (Auto) 0.0 x10^3/uL (0.0-0.7) Basophils # (Auto) 0.0 x10^3/uL (0.0-0.2) Prothrombin Time 17.5 SEC (11.7-14.0) Prothromb Time International Ratio 1.5 (0.8-1.1) Activated Partial Thromboplast Time 32 SEC (24-38) Sodium Level 137 mmol/L (136-145) Potassium Level 4.5 mmol/L (3.5-5.1) Chloride Level 99 mmol/L (98-107) Carbon Dioxide Level 28 mmol/L (21-32) Anion Gap 10 (6-14) Blood Urea Nitrogen 24 mg/dL (7-20) Creatinine 1.3 mg/dL (0.6-1.0) Estimated GFR (Cockcroft-Gault) 39.2 BUN/Creatinine Ratio 18 (6-20) Glucose Level 242 mg/dL (70-99) Lactic Acid Level 1.3 mmol/L (0.4-2.0) Calcium Level 8.5 mg/dL (8.5-10.1) Phosphorus Level 3.9 mg/dL (2.6-4.7) Magnesium Level 1.9 mg/dL (1.8-2.4) Total Bilirubin 1.1 mg/dL (0.2-1.0) Aspartate Amino Transf (AST/SGOT) 5 U/L (15-37) Alanine Aminotransferase (ALT/SGPT) 10 U/L (14-59) Alkaline Phosphatase 51 U/L (46-116) Creatine Kinase 32 U/L (26-192) Troponin I High Sensitivity 8 ng/L (4-50) YH-Lgk-D-Type Natriuretic Peptide 1647 pg/mL (0-449) Total Protein 7.3 g/dL (6.4-8.2) Albumin 3.1 g/dL (3.4-5.0) Albumin/Globulin Ratio 0.7 (1.0-1.7) Urine Collection Type U cath Urine Color Yellow Urine Clarity Cloudy Urine pH 5.5 (<5.0-8.0) Urine Specific [address] >=1.030 (1.000-1.030) Urine Protein 30 mg/dL (NEG-TRACE) Urine Glucose (UA) Negative mg/dL (NEG) Urine Ketones (Stick) Negative mg/dL (NEG) Urine Blood Moderate (NEG) Urine Nitrite Positive (NEG) Urine Bilirubin Small (NEG) Urine Urobilinogen Dipstick 0.2 mg/dL (0.2 mg/dL) Urine Leukocyte Esterase Small (NEG) Urine RBC Occ /HPF (0-2) Urine WBC Tntc /HPF (0-4) Urine Squamous Epithelial Cells Mod /LPF Urine Bacteria Many /HPF (0-FEW) Urine Mucus Slight /LPF O2 Saturation 94 % (92-99) Arterial Blood pH 7.32 (7.35-7.45) Arterial Blood pCO2 at Patient Temp 53 mmHg (35-46) Arterial Blood pO2 at Patient Temp 79 mmHg (65-108) Arterial Blood HCO3 27 mmol/L (21-28) Arterial Blood Base Excess 0 mmol/L (-3-3) FiO2 100 (nrb) Influenza Type A Antigen Negative (NEGATIVE) Influenza Type B Antigen Negative (NEGATIVE) SARS-CoV-2 Antigen (Rapid) Negative (NEGATIVE) Test 06/04/21 02:04 06/04/21 07:58 06/04/21 12:15 06/04/21 19:51 Glucose (Fingerstick) 281 mg/dL (70-99) 195 mg/dL (70-99) 161 mg/dL (70-99) 175 mg/dL (70-99) Test 06/05/21 04:00 06/05/21 05:38 06/05/21 07:30 06/05/21 11:37 White Blood Count 5.5 x10^3/uL (4.0-11.0) Red Blood Count 2.88 x10^6/uL (3.50-5.40) Hemoglobin 9.9 g/dL (12.0-15.5) Hematocrit 30.9 % (36.0-47.0) Mean Corpuscular Volume 107 fL (79-100) Mean Corpuscular Hemoglobin 34 pg (25-35) Mean Corpuscular Hemoglobin Concent 32 g/dL (31-37) Red Cell Distribution Width 17.9 % (11.5-14.5) Platelet Count 122 x10^3/uL (140-400) Neutrophils (%) (Auto) 74 % (31-73) Lymphocytes (%) (Auto) 13 % (24-48) Monocytes (%) (Auto) 11 % (0-9) Eosinophils (%) (Auto) 2 % (0-3) Basophils (%) (Auto) 0 % (0-3) Neutrophils # (Auto) 4.1 x10^3/uL (1.8-7.7) Lymphocytes # (Auto) 0.7 x10^3/uL (1.0-4.8) Monocytes # (Auto) 0.6 x10^3/uL (0.0-1.1) Eosinophils # (Auto) 0.1 x10^3/uL (0.0-0.7) Basophils # (Auto) 0.0 x10^3/uL (0.0-0.2) Sodium Level 135 mmol/L (136-145) Potassium Level 4.7 mmol/L (3.5-5.1) Chloride Level 98 mmol/L (98-107) Carbon Dioxide Level 31 mmol/L (21-32) Anion Gap 6 (6-14) Blood Urea Nitrogen 29 mg/dL (7-20) Creatinine 1.7 mg/dL (0.6-1.0) Estimated GFR (Cockcroft-Gault) 28.8 BUN/Creatinine Ratio 17 (6-20) Glucose Level 156 mg/dL (70-99) Calcium Level 8.2 mg/dL (8.5-10.1) Total Bilirubin 0.7 mg/dL (0.2-1.0) Aspartate Amino Transf (AST/SGOT) 9 U/L (15-37) Alanine Aminotransferase (ALT/SGPT) 9 U/L (14-59) Alkaline Phosphatase 45 U/L (46-116) Total Protein 6.8 g/dL (6.4-8.2) Albumin 2.9 g/dL (3.4-5.0) Albumin/Globulin Ratio 0.7 (1.0-1.7) Glucose (Fingerstick) 146 mg/dL (70-99) 144 mg/dL (70-99) 159 mg/dL (70-99) Laboratory Tests Test 06/04/21 19:51 06/05/21 04:00 06/05/21 05:38 06/05/21 07:30 Glucose (Fingerstick) 175 mg/dL (70-99) 146 mg/dL (70-99) 144 mg/dL (70-99) White Blood Count 5.5 x10^3/uL (4.0-11.0) Red Blood Count 2.88 x10^6/uL (3.50-5.40) Hemoglobin 9.9 g/dL (12.0-15.5) Hematocrit 30.9 % (36.0-47.0) Mean Corpuscular Volume 107 fL (79-100) Mean Corpuscular Hemoglobin 34 pg (25-35) Mean Corpuscular Hemoglobin Concent 32 g/dL (31-37) Red Cell Distribution Width 17.9 % (11.5-14.5) Platelet Count 122 x10^3/uL (140-400) Neutrophils (%) (Auto) 74 % (31-73) Lymphocytes (%) (Auto) 13 % (24-48) Monocytes (%) (Auto) 11 % (0-9) Eosinophils (%) (Auto) 2 % (0-3) Basophils (%) (Auto) 0 % (0-3) Neutrophils # (Auto) 4.1 x10^3/uL (1.8-7.7) Lymphocytes # (Auto) 0.7 x10^3/uL (1.0-4.8) Monocytes # (Auto) 0.6 x10^3/uL (0.0-1.1) Eosinophils # (Auto) 0.1 x10^3/uL (0.0-0.7) Basophils # (Auto) 0.0 x10^3/uL (0.0-0.2) Sodium Level 135 mmol/L (136-145) Potassium Level 4.7 mmol/L (3.5-5.1) Chloride Level 98 mmol/L (98-107) Carbon Dioxide Level 31 mmol/L (21-32) Anion Gap 6 (6-14) Blood Urea Nitrogen 29 mg/dL (7-20) Creatinine 1.7 mg/dL (0.6-1.0) Estimated GFR (Cockcroft-Gault) 28.8 BUN/Creatinine Ratio 17 (6-20) Glucose Level 156 mg/dL (70-99) Calcium Level 8.2 mg/dL (8.5-10.1) Total Bilirubin 0.7 mg/dL (0.2-1.0) Aspartate Amino Transf (AST/SGOT) 9 U/L (15-37) Alanine Aminotransferase (ALT/SGPT) 9 U/L (14-59) Alkaline Phosphatase 45 U/L (46-116) Total Protein 6.8 g/dL (6.4-8.2) Albumin 2.9 g/dL (3.4-5.0) Albumin/Globulin Ratio 0.7 (1.0-1.7) Test 06/05/21 11:37 Glucose (Fingerstick) 159 mg/dL (70-99) Microbiology 06/03/21 Urine Culture - Preliminary, Resulted Klebsiella Pneumoniae 06/03/21 Blood Culture - Preliminary, Resulted NO GROWTH AFTER 1 DAY Medications Current Medications Vancomycin HCl 1.5 gm/Sodium Chloride 500 ml @ 250 mls/hr 1X ONCE IV ; Start 06/03/21 at 23:00; Stop 06/04/21 at 00:59; Status UNV Piperacillin Sod/ Tazobactam Sod 4.5 gm/Sodium Chloride 100 ml @ 200 mls/hr 1X ONCE IV Last administered on 06/04/21at 00:02; Start 06/03/21 at 23:30; Stop 06/03/21 at 23:59; Status DC Furosemide (Lasix) 20 mg 1X ONCE IVP Last administered on 06/04/21at 00:00; S tart 2/25/22 at 23:30; Stop 06/03/21 at 23:31; Status DC Vancomycin HCl (Vanco Per Pharmacy) 1 each PRN DAILY PRN MC SEE COMMENTS Last administered on 06/05/21at 07:49; Start 06/03/21 at 23:45 Vancomycin HCl 2 gm/Sodium Chloride 500 ml @ 250 mls/hr 1X ONCE IV Last administered on 06/04/21at 00:16; Start 06/04/21 at 00:00; Stop 06/04/21 at 01:59; Status DC Acetaminophen/ Hydrocodone Bitart (Lortab 5/325) 1 tab 1X ONCE PO Last administered on 06/04/21at 00:14; Start 06/04/21 at 00:30; Stop 06/04/21 at 00 :31; Status DC Ondansetron HCl (Zofran) 4 mg PRN Q8HRS PRN IVP NAUSEA/VOMITING 1ST CHOICE; Start 06/04/21 at 01:45; Stop 06/05/21 at 01:44; Status DC Acetaminophen (Tylenol) 650 mg PRN Q6HRS PRN PO MILD PAIN / TEMP > 100.3'F; Start 06/04/21 at 01:45 Diphenhydramine HCl (Benadryl) 25 mg PRN Q6HRS PRN PO insomnia or itching Last administered on 06/04/21at 02:17; Start 06/04/21 at 01:45 Fentanyl Citrate (Fentanyl 2ml Vial) 50 mcg PRN Q4HRS PRN IVP SEVERE PAIN 7-10 Last administered on 06/04/21at 02:18; Start 06/04/21 at 01:45; Stop 06/04/21 at 04:58; Status DC Vancomycin HCl 2 gm/Sodium Chloride 500 ml @ 250 mls/hr Q24H IV Last administered on 06/04/21at 23:24; Start 06/04/21 at 23:00 Vancomycin HCl (Vancomycin Trough Level) 1 each 1X ONCE MC ; Start 06/05/21 at 22:30; Stop 06/05/21 at 22:31 Fentanyl Citrate (Fentanyl 2ml Vial) 50 mcg PRN Q2HR PRN IVP SEVERE PAIN 7-10 Last administered on 06/04/21at 08:49; Start 06/04/21 at 05:00 Acetaminophen (Tylenol) 650 mg PRN QHS PRN PO MILD PAIN 1-3; Start 06/04/21 at 05:00 Apixaban (Eliquis) 2.5 mg BID PO Last administered on 06/05/21 08:36; Start 06/04/21 at 09:00 Bumetanide (Bumex) 1 mg BID94 PO Last administered on 06/05/21 10:31; Start 06/04/21 at 09:00 Celecoxib (CeleBREX) 100 mg PRN BID PRN PO INFLAMMATION Last administered on 06/05/21 06:39; Start 06/04/21 at 05:00 Cyclosporine (Restasis) 1 drop BID OU Last administered on 06/05/21 10:32; Start 06/04/21 at 09:00 Levothyroxine Sodium (Synthroid) 88 mcg DAILY06 PO Last administered on 06/05/21 05:37; Start 06/04/21 at 06:00 Losartan Potassium (Cozaar) 50 mg DAILY PO Last administered on 06/05/21 10:32; Start 06/04/21 at 09:00 Magnesium Oxide (Magnesium Oxide) 400 mg DAILY PO Last administered on 06/05/21 08:35; Start 06/04/21 at 09:00 Nitroglycerin (Nitrostat) 0.4 mg PRN Q5MIN PRN SL CHEST PAIN; Start 06/04/21 at 05:00 Carvedilol (Coreg) 25 mg BIDWMEALS PO Last administered on 06/05/21 08:37; Start 06/04/21 at 08:00 Vitamin D (Vitamin D3) 1,000 unit DAILY PO Last administered on 06/05/21at 08:35; Start 06/04/21 at 09:00 Insulin Human Lispro (HumaLOG) 16 units TIDWMEALS SQ ; Start 06/04/21 at 08:00 Insulin Glargine (Lantus Syringe) 50 unit QHS SQ Last administered on 06/04/21at 20:03; Start 06/04/21 at 21:00 Pantoprazole Sodium (Protonix) 40 mg DAILYAC PO Last administered on 06/05/21 05:37; Start 06/04/21 at 07:30 Atorvastatin Calcium (Lipitor) 5 mg DAILY PO Last administered on 06/05/21at 08:36; Start 06/04/21 at 09:00 Dextrose (Dextrose 50%-Water Syringe) 12.5 gm PRN Q15MIN PRN IV SEE COMMENTS; Start 06/04/21 at 05:30 Dextrose (Iv Dextrose 5%) 250 ml PRN Q15MIN PRN IV SEE COMMENTS; Start 06/04/21 at 05:30 Info (Anti-Coagulation Monitoring By Pharmacy) 1 each PRN DAILY PRN MC PER PROTOCOL Last administered on 06/04/21at 05:33; Start 06/04/21 at 05:30 Vitamin B Complex (Folbic Tablet) 1 tab DAILY PO Last administered on 06/05/21at 10:31; Start 06/04/21 at 11:00 Lidocaine (Lidoderm) 1 patch DAILY TD Last administered on 06/05/21at 08:38; Start 06/04/21 at 11:30 Miscellaneous (Lidoderm Patch Removal) 1 ea QHS MC ; Start 06/04/21 at 21:00; Stop 06/04/21 at 10:43; Status DC Diclofenac Sodium (Voltaren) 1 laura BID TP Last administered on 06/05/21at 08:46; Start 06/04/21 at 11:30 Lidocaine (Lidoderm) 1 patch DAILY TD ; Start 06/04/21 at 11:00; Status Cancel Miscellaneous (Lidoderm Patch Removal) 1 ea QHS MC Last administered on 06/04/21at 20:04; Start 06/04/21 at 21:00 Acetaminophen/ Hydrocodone Bitart (Lortab 5/325) 1 tab PRN Q4HRS PRN PO MODERATE PAIN Last administered on 06/05/21at 04:40; Start 06/04/21 at 10:45 Acetaminophen/ Hydrocodone Bitart (Lortab 5/325) 2 tab PRN Q4HRS PRN PO SEVERE PAIN Last administered on 06/05/21at 08:41; Start 06/04/21 at 10:45 Nystatin (Nystop) 1 laura BID TP Last administered on 06/05/21at 08:45; Start 06/04/21 at 14:00 Piperacillin Sod/ Tazobactam Sod (Zosyn Per Pharmacy) 1 each PRN DAILY PRN MC SEE COMMENTS; Start 06/04/21 at 14:15 Piperacillin Sod/ Tazobactam Sod 4.5 gm/Dextrose 100 ml @ 200 mls/hr Q6HRS IV Last administered on 06/05/21at 05:38; Start 06/04/21 at 16:00; Stop 06/05/21 at 07:44; Status DC Lactobacillus Rhamnosus (Culturelle) 1 cap BID PO Last administered on 06/05/21at 08:35; Start 06/04/21 at 21:00 Sodium Chloride (Saline Mist Nasal) 1 laura PRN Q1HR PRN NS NASAL CONGESTION Last administered on 06/05/21at 06:33; Start 06/04/21 at 19:45 Piperacillin Sod/ Tazobactam Sod 3.375 gm/Sodium Chloride 50 ml @ 100 mls/hr Q6HRS IV Last administered on 06/05/21at 12:20; Start 06/05/21 at 12:00 Active Scripts Active Reported Bumetanide 1 Mg Tablet 1 Mg PO BID Carvedilol 25 Mg Tablet 25 Mg PO BIDWMEALS Eliquis (Apixaban) 2.5 Mg Tablet 2.5 Mg PO BID Restasis (Cyclosporine) 1 Each Droperette 1 Drop EACHEYE BID Tylenol (Acetaminophen) 325 Mg Tablet 650 Mg PO QHS PRN Magnesium Oxide 400 Mg Tablet 400 Mg PO DAILY Protonix (Pantoprazole Sodium) 20 Mg Tablet.dr 40 Mg PO DAILY Novolog (Insulin Aspart) 100 Unit/1 Ml Cartridge 16 Unit SQ TIDAC Lantus Solostar (Insulin Glargine,Hum.rec.anlog) 100 Unit/1 Ml Insuln.pen 50 Unit SQ QHS Novolog Flexpen (Insulin Aspart) 100 Unit/1 Ml Insuln.pen 0 SQ TIDWMEALS PRN Celebrex (Celecoxib) 100 Mg Capsule 1 Cap PO PRN BID Nitrostat (Nitroglycerin) 0.4 Mg Tab.subl 1 Tab SL UD PRN Vitamin D (Cholecalciferol (Vitamin D3)) 1,000 Unit Capsule 1 Cap PO DAILY Losartan Potassium 50 Mg Tablet 50 Mg PO DAILY Synthroid (Levothyroxine Sodium) 88 Mcg Tablet 1 Tab PO DAILY Gave this morning Take tomorrow Pravastatin Sodium 20 Mg Tablet 1 Tab PO DAILY Vitals/I & O Vital Sign - Last 24 Hours 06/04/21 06/04/21 06/04/2106/04/22 15:00 17:48 19:26 19:46 Temp 97.8 97.7 97.8 97.7 Pulse 72 72 Resp 18 18 B/P (MAP) 145/69 117/70 (86) Pulse Ox 92 94 O2 Delivery Nasal Cannula Nasal Cannula O2 Flow Rate 6.0 8.0 06/04/21 06/04/21 06/04/21 06/05/21 20:00 20:16 22:35 00:34 Temp 97.5 97.5 Pulse 76 Resp 18 16 18 B/P (MAP) 98/51 (67) Pulse Ox 96 96 96 O2 Delivery Nasal Cannula Nasal Cannula Nasal Cannula Nasal Cannula O2 Flow Rate 8.0 8.0 6.0 8.0 06/05/21 06/05/21 06/05/21 06/05/21 01:04 02:49 04:40 05:10 Temp 97.8 97.8 Pulse 71 Resp 18 16 18 18 B/P (MAP) 127/56 (79) Pulse Ox 99 93 99 99 O2 Delivery Nasal Cannula Nasal Cannula Nasal Cannula Nasal Cannula O2 Flow Rate 8.0 6.0 8.0 8.0 06/05/21 06/05/21 06/05/21 06/05/21 06:22 08:37 08:41 09:11 Temp 98.5 98.5 Pulse 77 77 Resp 18 20 18 B/P (MAP) 144/64 (90) 144/64 Pulse Ox 97 O2 Delivery Nasal Cannula O2 Flow Rate 8.0 06/05/21 06/05/21 10:32 11:05 Temp 97.9 97.9 Pulse 70 77 Resp 18 B/P (MAP) 128/57 128/57 (80) Pulse Ox 93 O2 Delivery Nasal Cannula O2 Flow Rate 8.0 Intake and Output 06/04/21 06/04/21 06/05/21 15:00 23:00 07:00 Intake Total 0 ml 0 ml Output Total 250 ml 800 ml Balance -250 ml 0 ml -800 ml Justifications for Admission Other Justification CAM CAMPBELL MD Jun 05, 2021 14:47
[2021-06-05 15:00] VITALS: BP 119/57
--- NOTE | 2021-06-05 17:53 | NUR ---
Evening insulin hold, Blood sugar 156, pt. just ate some snacks, refused dinner, states she doesn't feel like eating. Will try to eat more tomorrow
[2021-06-05 19:11] VITALS: BP 93/44
[2021-06-05] MEDS: PATCH REMOVAL. MC SCH (21:00)
[2021-06-05] MEDS: diphenhydrAMINE HCL 25 MG CAPSULE PO PRN (21:16)
[2021-06-05] MEDS: INSULIN GLARGINE SYRINGE. SQ SCH (21:32)
[2021-06-05 22:44] VITALS: BP 127/56
[2021-06-05 23:15] LABS: VANC TR 18.7 mcg/mL (10.0-20.0)
[2021-06-05] MEDS: VANCOMYCIN 2 GM in IV NORMAL SALINE 500ML BAG 500 ML IV SCH (23:30)
--- NOTE | 2021-06-05 23:57 | NUR ---
Pharmacy Vancomycin Dosing Note S:Consulted to monitor and dose vancomycin started 06/04/21. O:MARIA ELENA HOFFMANN is a 81 year old F with Sepsis HCAP UTI . Height: 5 feet, 7 inches Weight: 136.8 kg [place] Body Weight: 61.60 Adjusted Body Weight: 91.68 Dosing Weight: Actual Other Antibiotics: ZOSYN 4.5GM 1X ER ZOSYN 3.375GM Q6HRS LABS: Last BUN: 29 Last Creatinine: 1.7 Creatinine Clearance: 37 mL/min Last WBC: 5.5 Last Procalcitonin: Tmax (past 24 hours): 98.5 Microbiology: 06/03 Blood: NGTD I/O: -/1050 Drug Levels: Last Trough level: 18.7 on 06/05/21 at 2230 Last dose given 06/04/21 at 2324 Vancomycin Dosing: Loading Dose: 2000 mg x1 Dosing Weight: Actual Target Trough: 15-20 A: Based on: TROUGH P: 1. Continue Vancomycin 2000 mg IV q24h 2. Follow up Trough level IF NEEDED 3. Pharmacy will continue to monitor, follow and adjust therapy as needed. GABRIEL HINSON RPH, 06/05/217 Signed: 06/05/21 at 2358 by GABRIEL HINSON RPH PHA
[2021-06-06 02:50] VITALS: BP 138/61
[2021-06-06] MEDS: HYDROcodone/APAP 5/325MG 1 TAB TABLET PO PRN ×5 (03:23→22:30)
[2021-06-06] MEDS: PIPERACILLIN/TAZOBACTAM 3.375 GM in IV NORMAL SALINE 50ML 50 ML IV SCH ×3 (05:27→18:26)
[2021-06-06 05:29] LABS: CREATININE 1.8 mg/dL (0.6-1.0); GFR 26.9
[2021-06-06] MEDS: LEVOTHYROXINE 88 MCG TABLET PO SCH (05:59)
[2021-06-06] MEDS: PANTOPRAZOLE 40 MG TABLET.DR. PO SCH (05:59)
[2021-06-06 07:00] VITALS: BP 130/60
[2021-06-06] MEDS: INSULIN LISPRO 300 UNITS/3 ML VIAL. SQ SCH ×3 (08:00→17:00)
[2021-06-06] MEDS: LOSARTAN POTASSIUM 50 MG TABLET. PO SCH (08:04)
[2021-06-06] MEDS: cycloSPORINE 0.05% OPHTH DROPERETTE. OU SCH ×2 (08:04→20:34)
[2021-06-06] MEDS: LACTOBACILLUS RHAMNOSUS GG 1 CAPSULE. PO SCH ×2 (08:04→20:34)
[2021-06-06] MEDS: BUMETANIDE 1 MG TABLET. PO SCH (08:05)
[2021-06-06] MEDS: VITAMIN B12,B9,B6 COMPLEX 1 TABLET. PO SCH (08:05)
[2021-06-06] MEDS: APIXABAN 2.5 MG TABLET. PO SCH (08:05)
[2021-06-06] MEDS: CHOLECALCIFEROL (VITAMIN D3) 1,000 UNIT TABLET PO SCH (08:05)
[2021-06-06] MEDS: MAGNESIUM OXIDE 400 MG TABLET PO SCH (08:05)
[2021-06-06] MEDS: CARVEDILOL 12.5 MG TABLET. PO SCH ×2 (08:06→18:25)
[2021-06-06] MEDS: ATORVASTATIN CALCIUM 10 MG TABLET. PO SCH (08:06)
[2021-06-06] MEDS: LIDOCAINE (700MG/PATCH) PATCH. TD SCH (08:09)
--- NOTE | 2021-06-06 08:24 | PDOC ---
PULMONARY PROGRESS NOTES DATE: 06/06/21 TIME: 08:23 Subjective The patient was sitting up in bed on exam this morning, better today than yesterday, currently 98% on 5L NC, Arredondo in place. Labs reviewed; creatinine stable at 1.8. No overnight events. Vitals Vital Signs Date Time Temp Pulse Resp B/P (MAP) Pulse Ox O2 Delivery O2 Flow Rate FiO2 06/06/21 08:07 96 Nasal Cannula 5.0 06/06/21 08:06 70 130/60 06/06/21 07:00 97.2 21 97.2 ROS: No Nausea, No Chest Pain, No Increase Cough General: Alert, No acute distress Lungs: Clear Cardiovascular: S1, S2 Abdomen: Soft, Non-tender Neuro Exam: Alert Extremities: Other (2+ non-pitting) Skin: Warm, No Rashes Labs Laboratory Tests Test 06/04/21 12:15 06/04/21 19:51 06/05/21 04:00 06/05/21 05:38 Glucose (Fingerstick) 161 mg/dL (70-99) 175 mg/dL (70-99) 146 mg/dL (70-99) White Blood Count 5.5 x10^3/uL (4.0-11.0) Red Blood Count 2.88 x10^6/uL (3.50-5.40) Hemoglobin 9.9 g/dL (12.0-15.5) Hematocrit 30.9 % (36.0-47.0) Mean Corpuscular Volume 107 fL (79-100) Mean Corpuscular Hemoglobin 34 pg (25-35) Mean Corpuscular Hemoglobin Concent 32 g/dL (31-37) Red Cell Distribution Width 17.9 % (11.5-14.5) Platelet Count 122 x10^3/uL (140-400) Neutrophils (%) (Auto) 74 % (31-73) Lymphocytes (%) (Auto) 13 % (24-48) Monocytes (%) (Auto) 11 % (0-9) Eosinophils (%) (Auto) 2 % (0-3) Basophils (%) (Auto) 0 % (0-3) Neutrophils # (Auto) 4.1 x10^3/uL (1.8-7.7) Lymphocytes # (Auto) 0.7 x10^3/uL (1.0-4.8) Monocytes # (Auto) 0.6 x10^3/uL (0.0-1.1) Eosinophils # (Auto) 0.1 x10^3/uL (0.0-0.7) Basophils # (Auto) 0.0 x10^3/uL (0.0-0.2) Sodium Level 135 mmol/L (136-145) Potassium Level 4.7 mmol/L (3.5-5.1) Chloride Level 98 mmol/L (98-107) Carbon Dioxide Level 31 mmol/L (21-32) Anion Gap 6 (6-14) Blood Urea Nitrogen 29 mg/dL (7-20) Creatinine 1.7 mg/dL (0.6-1.0) Estimated GFR (Cockcroft-Gault) 28.8 BUN/Creatinine Ratio 17 (6-20) Glucose Level 156 mg/dL (70-99) Calcium Level 8.2 mg/dL (8.5-10.1) Total Bilirubin 0.7 mg/dL (0.2-1.0) Aspartate Amino Transf (AST/SGOT) 9 U/L (15-37) Alanine Aminotransferase (ALT/SGPT) 9 U/L (14-59) Alkaline Phosphatase 45 U/L (46-116) Total Protein 6.8 g/dL (6.4-8.2) Albumin 2.9 g/dL (3.4-5.0) Albumin/Globulin Ratio 0.7 (1.0-1.7) Test 06/05/21 07:30 06/05/21 11:37 06/05/21 16:40 06/05/21 21:04 Glucose (Fingerstick) 144 mg/dL (70-99) 159 mg/dL (70-99) 156 mg/dL (70-99) 190 mg/dL (70-99) Test 06/05/21 22:45 06/06/21 03:45 06/06/21 08:02 Vancomycin Level Trough 18.7 mcg/mL (10.0-20.0) Vancomycin Last Dose Date 06/04/2021 Vancomycin Last Dose Time 2300 Creatinine 1.8 mg/dL (0.6-1.0) Estimated GFR (Cockcroft-Gault) 26.9 Glucose (Fingerstick) 131 mg/dL (70-99) Laboratory Tests Test 06/05/21 11:37 06/05/21 16:40 06/05/21 21:04 06/05/21 22:45 Glucose (Fingerstick) 159 mg/dL (70-99) 156 mg/dL (70-99) 190 mg/dL (70-99) Vancomycin Level Trough 18.7 mcg/mL (10.0-20.0) Vancomycin Last Dose Date 06/04/2021 Vancomycin Last Dose Time 2300 Test 06/06/21 03:45 06/06/21 08:02 Creatinine 1.8 mg/dL (0.6-1.0) Estimated GFR (Cockcroft-Gault) 26.9 Glucose (Fingerstick) 131 mg/dL (70-99) Medications Active Scripts Medications Dose Route/Sig Max Daily Dose Days Date Category Dose Instructions Bumetanide 1 Mg Tablet 1 Mg PO BID 06/04/21 Reported Carvedilol 25 Mg Tablet 25 Mg PO BIDWMEALS 06/04/21 Reported Eliquis (Apixaban) 2.5 Mg Tablet 2.5 Mg PO BID 06/04/21 Reported Restasis (Cyclosporine) 1 Each Droperette 1 Drop EACHEYE BID 01/09/18 Reported Tylenol (Acetaminophen) 325 Mg Tablet 650 Mg PO QHS PRN 01/09/18 Reported Magnesium Oxide 400 Mg Tablet 400 Mg PO DAILY 01/09/18 Reported Protonix (Pantoprazole Sodium) 20 Mg Tablet.dr 40 Mg PO DAILY 01/09/18 Reported Novolog (Insulin Aspart) 100 Unit/1 Ml Cartridge 16 Unit SQ TIDAC 01/09/18 Reported Lantus Solostar (Insulin Glargine,Hum.rec.anlog) 100 Unit/1 Ml Insuln.pen 50 Unit SQ QHS 01/09/18 Reported Novolog Flexpen (Insulin Aspart) 100 Unit/1 Ml Insuln.pen 0 SQ TIDWMEALS PRN 02/19/16 Reported Celebrex (Celecoxib) 100 Mg Capsule 1 Cap PO PRN BID 02/19/16 Reported Nitrostat (Nitroglycerin) 0.4 Mg Tab.subl 1 Tab SL UD PRN 02/16/16 Reported Vitamin D (Cholecalciferol (Vitamin D3)) 1,000 Unit Capsule 1 Cap PO DAILY 02/16/16 Reported Losartan Potassium 50 Mg Tablet 50 Mg PO DAILY 02/16/16 Reported Synthroid (Levothyroxine Sodium) 88 Mcg Tablet 1 Tab PO DAILY 02/16/16 Reported Gave this morning Take tomorrow Pravastatin Sodium 20 Mg Tablet 1 Tab PO DAILY 02/16/16 Reported Impression . 1. Acute on chronic respiratory failure secondary to acute diastolic congestive heart failure, rule out pneumonia. She had a syncopal episode ? aspiration pneumonitis. 2. Abnormal chest x-ray. 3. Acute diastolic congestive heart failure. 4. Atrial fibrillation. 5. Hypertension. 6. Obstructive sleep apnea-hypopnea syndrome, obesity hypoventilation syndrome. 7. Gastroesophageal reflux disease. 8. Acute kidney injury. Plan . Updated 06/06 Discussed with at the bedside Continue O2 titration to maintain O2 sat 90% Currently 5L NC at 98% Labs reviewed; Bun/Creatinine stable Continue Zosyn Vanco Encourage pulmonary hygiene; IS hourly while awake Eliquis for anticoagulation Protonix for Prophylaxis Continue Arredondo for accurate I&O; Currently on Bumex PLAN AND RECOMMENDATIONS: 1. Titrate FiO2 to keep O2 saturation 90%. Avoid over oxygenation as she is a CO2 retainer. 2. I agree with Bumex to keep intake less than output. Monitor potassium and creatinine. 3. Cardiology is consulted, need to obtain records from [facility]. 4. Continue antibiotics for now. We will do MRSA screen. 5. Incentive spirometer to use multiple times an hour. 6. Lose weight and exercise. 7. Obstructive sleep apnea-hypopnea syndrome. The importance of treatment was discussed with the patient. I do recommend she continue using CPAP during sleep. 8. She is on Eliquis. 9. Protonix for stress ulcer prophylaxis. 10. The findings and recommendations were discussed with the patient and RN. VINICIO CADENA MD Jun 06, 2021 08:24
--- NOTE | 2021-06-06 10:06 | PDOC ---
PROGRESS NOTES Date of Service DATE: 06/06/21 TIME: 10:00 Subjective Subjective She admits continued right knee pain and does not want anyone to touch it and she refused to work with physical therapy for the last 2 days. Objective Objective Vital Signs Date Time Temp Pulse Resp B/P (MAP) Pulse Ox O2 Delivery O2 Flow Rate FiO2 06/06/21 08:07 96 Nasal Cannula 5.0 06/06/21 08:06 70 130/60 06/06/21 07:00 97.2 21 97.2 Intake and Output 06/06/21 07:00 Intake Total 50 ml Output Total 1400 ml Balance -1350 ml Intake Oral 0 ml IV Total 50 ml Output Urine Total 1400 ml Physical Exam Physical Exam She is alert,supine in bed and her at bedside. She had not yet received eleonora knee brace or knee immobilizer yet. Assessment Assessment Problems Medical Problems: (1) Chronic respiratory failure with hypoxia, on home O2 therapy Status: Acute (2) Diabetes mellitus Status: Acute (3) Failure to thrive Status: Acute (4) Generalized weakness Status: Acute (5) Healthcare-associated pneumonia Status: Acute (6) Syncope Status: Acute (7) Urinary tract infection Status: Acute Plan Plan of Care To continue physical and occupational therapy follow up as she can co-operate and to SNF when medically stable. Comment Review of Relevant I have reviewed the following items ashwini (where applicable) has been applied. Labs Laboratory Tests Test 06/04/21 12:15 06/04/21 19:51 06/05/21 04:00 06/05/21 05:38 Glucose (Fingerstick) 161 mg/dL (70-99) 175 mg/dL (70-99) 146 mg/dL (70-99) White Blood Count 5.5 x10^3/uL (4.0-11.0) Red Blood Count 2.88 x10^6/uL (3.50-5.40) Hemoglobin 9.9 g/dL (12.0-15.5) Hematocrit 30.9 % (36.0-47.0) Mean Corpuscular Volume 107 fL (79-100) Mean Corpuscular Hemoglobin 34 pg (25-35) Mean Corpuscular Hemoglobin Concent 32 g/dL (31-37) Red Cell Distribution Width 17.9 % (11.5-14.5) Platelet Count 122 x10^3/uL (140-400) Neutrophils (%) (Auto) 74 % (31-73) Lymphocytes (%) (Auto) 13 % (24-48) Monocytes (%) (Auto) 11 % (0-9) Eosinophils (%) (Auto) 2 % (0-3) Basophils (%) (Auto) 0 % (0-3) Neutrophils # (Auto) 4.1 x10^3/uL (1.8-7.7) Lymphocytes # (Auto) 0.7 x10^3/uL (1.0-4.8) Monocytes # (Auto) 0.6 x10^3/uL (0.0-1.1) Eosinophils # (Auto) 0.1 x10^3/uL (0.0-0.7) Basophils # (Auto) 0.0 x10^3/uL (0.0-0.2) Sodium Level 135 mmol/L (136-145) Potassium Level 4.7 mmol/L (3.5-5.1) Chloride Level 98 mmol/L (98-107) Carbon Dioxide Level 31 mmol/L (21-32) Anion Gap 6 (6-14) Blood Urea Nitrogen 29 mg/dL (7-20) Creatinine 1.7 mg/dL (0.6-1.0) Estimated GFR (Cockcroft-Gault) 28.8 BUN/Creatinine Ratio 17 (6-20) Glucose Level 156 mg/dL (70-99) Calcium Level 8.2 mg/dL (8.5-10.1) Total Bilirubin 0.7 mg/dL (0.2-1.0) Aspartate Amino Transf (AST/SGOT) 9 U/L (15-37) Alanine Aminotransferase (ALT/SGPT) 9 U/L (14-59) Alkaline Phosphatase 45 U/L (46-116) Total Protein 6.8 g/dL (6.4-8.2) Albumin 2.9 g/dL (3.4-5.0) Albumin/Globulin Ratio 0.7 (1.0-1.7) Test 06/05/21 07:30 06/05/21 11:37 06/05/21 16:40 06/05/21 21:04 Glucose (Fingerstick) 144 mg/dL (70-99) 159 mg/dL (70-99) 156 mg/dL (70-99) 190 mg/dL (70-99) Test 06/05/21 22:45 06/06/21 03:45 06/06/21 08:02 Vancomycin Level Trough 18.7 mcg/mL (10.0-20.0) Vancomycin Last Dose Date 06/04/2021 Vancomycin Last Dose Time 2300 Creatinine 1.8 mg/dL (0.6-1.0) Estimated GFR (Cockcroft-Gault) 26.9 Glucose (Fingerstick) 131 mg/dL (70-99) Laboratory Tests Test 06/05/21 11:37 06/05/21 16:40 06/05/21 21:04 06/05/21 22:45 Glucose (Fingerstick) 159 mg/dL (70-99) 156 mg/dL (70-99) 190 mg/dL (70-99) Vancomycin Level Trough 18.7 mcg/mL (10.0-20.0) Vancomycin Last Dose Date 06/04/2021 Vancomycin Last Dose Time 2300 Test 06/06/21 03:45 06/06/21 08:02 Creatinine 1.8 mg/dL (0.6-1.0) Estimated GFR (Cockcroft-Gault) 26.9 Glucose (Fingerstick) 131 mg/dL (70-99) Microbiology 06/03/21 Urine Culture - Final, Complete Klebsiella Pneumoniae 06/03/21 Blood Culture - Preliminary, Resulted NO GROWTH AFTER 2 DAYS Medications Current Medications Vancomycin HCl 1.5 gm/Sodium Chloride 500 ml @ 250 mls/hr 1X ONCE IV ; Start 06/03/21 at 23:00; Stop 06/04/21 at 00:59; Status UNV Piperacillin Sod/ Tazobactam Sod 4.5 gm/Sodium Chloride 100 ml @ 200 mls/hr 1X ONCE IV Last administered on 06/04/21at 00:02; Start 06/03/21 at 23:30; Stop 06/03/21 at 23:59; Status DC Furosemide (Lasix) 20 mg 1X ONCE IVP Last administered on 06/04/21at 00:00; Start 06/03/21 at 23:30; Stop 06/03/21 at 23:31; Status DC Vancomycin HCl (Vanco Per Pharmacy) 1 each PRN DAILY PRN MC SEE COMMENTS Last administered on 06/05/21at 23:57; Start 06/03/21 at 23:45 Vancomycin HCl 2 gm/Sodium Chloride 500 ml @ 250 mls/hr 1X ONCE IV Last administered on 06/04/21at 00:16; Start 06/04/21 at 00:00; Stop 06/04/21 at 01:59; Status DC Acetaminophen/ Hydrocodone Bitart (Lortab 5/325) 1 tab 1X ONCE PO Last administered on 06/04/21at 00:14; Start 06/04/21 at 00:30; Stop 06/04/21 at 00:31; Status DC Ondansetron HCl (Zofran) 4 mg PRN Q8HRS PRN IVP NAUSEA/VOMITING 1ST CHOICE; Start 06/04/21 at 01:45; Stop 06/05/21 at 01:44; Status DC Acetaminophen (Tylenol) 650 mg PRN Q6HRS PRN PO MILD PAIN / TEMP > 100.3'F; Start 06/04/21 at 01:45 Diphenhydramine HCl (Benadryl) 25 mg PRN Q6HRS PRN PO insomnia or itching Last administered on 06/05/21at 21:16; Start 06/04/21 at 01:45 Fentanyl Citrate (Fentanyl 2ml Vial) 50 mcg PRN Q4HRS PRN IVP SEVERE PAIN 7-10 Last administered on 06/04/21at 02:18; Start 06/04/21 at 01:45; Stop 06/04/21 at 04:58; Status DC Vancomycin HCl 2 gm/Sodium Chloride 500 ml @ 250 mls/hr Q24H IV Last administered on 06/05/21at 23:30; Start 06/04/21 at 23:00 Vancomycin HCl (Vancomycin Trough Level) 1 each 1X ONCE MC Last administered on 06/05/21at 22:30; Start 06/05/21 at 22:30; Stop 06/05/21 at 22:31; Status DC Fentanyl Citrate (Fentanyl 2ml Vial) 50 mcg PRN Q2HR PRN IVP SEVERE PAIN 7-10 Last administered on 06/04/21at 08:49; Start 06/04/21 at 05:00 Acetaminophen (Tylenol) 650 mg PRN QHS PRN PO MILD PAIN 1-3; Start 06/04/21 at 05:00 Apixaban (Eliquis) 2.5 mg BID PO Last administered on 06/06/21 08:05; Start 06/04/21 at 09:00 Bumetanide (Bumex) 1 mg BID94 PO Last administered on 06/06/21at 08:05; Start 06/04/21 at 09:00 Celecoxib (CeleBREX) 100 mg PRN BID PRN PO INFLAMMATION Last administered on 06/05/21 06:39; Start 06/04/21 at 05:00 Cyclosporine (Restasis) 1 drop BID OU Last administered on 06/06/21 08:04; Start 06/04/21 at 09:00 Levothyroxine Sodium (Synthroid) 88 mcg DAILY06 PO Last administered on 05:59; Start 06/04/21 at 06:00 Losartan Potassium (Cozaar) 50 mg DAILY PO Last administered on 06/06/21 08:04; Start 06/04/21 at 09:00 Magnesium Oxide (Magnesium Oxide) 400 mg DAILY PO Last administered on 06/06/21 08:05; Start 06/04/21 at 09:00 Nitroglycerin (Nitrostat) 0.4 mg PRN Q5MIN PRN SL CHEST PAIN; Start 06/04/21 at 05:00 Carvedilol (Coreg) 25 mg BIDWMEALS PO Last administered on 06/06/21 08:06; Start 06/04/21 at 08:00 Vitamin D (Vitamin D3) 1,000 unit DAILY PO Last administered on 06/06/21at 08:05; Start 06/04/21 at 09:00 Insulin Human Lispro (HumaLOG) 16 units TIDWMEALS SQ ; Start 06/04/21 at 08:00 Insulin Glargine (Lantus Syringe) 50 unit QHS SQ Last administered on 06/05/21 21:32; Start 06/04/21 at 21:00 Pantoprazole Sodium (Protonix) 40 mg DAILYAC PO Last administered on 06/06/21 05:59; Start 06/04/21 at 07:30 Atorvastatin Calcium (Lipitor) 5 mg DAILY PO Last administered on 06/06/21at 08:06; Start 06/04/21 at 09:00 Dextrose (Dextrose 50%-Water Syringe) 12.5 gm PRN Q15MIN PRN IV SEE COMMENTS; Start 06/04/21 at 05:30 Dextrose (Iv Dextrose 5%) 250 ml PRN Q15MIN PRN IV SEE COMMENTS; Start 06/04/21 at 05:30 Info (Anti-Coagulation Monitoring By Pharmacy) 1 each PRN DAILY PRN MC PER PROTOCOL Last administered on 06/04/21at 05:33; Start 06/04/21 at 05:30 Vitamin B Complex (Folbic Tablet) 1 tab DAILY PO Last administered on 06/06/21at 08:05; Start 06/04/21 at 11:00 Lidocaine (Lidoderm) 1 patch DAILY TD Last administered on 06/06/21at 08:09; Start 06/04/21 at 11:30 Miscellaneous (Lidoderm Patch Removal) 1 ea QHS MC ; Start 06/04/21 at 21:00; Stop 06/04/21 at 10:43; Status DC Diclofenac Sodium (Voltaren) 1 laura BID TP Last administered on 06/05/21at 21:17; Start 06/04/21 at 11:30 Lidocaine (Lidoderm) 1 patch DAILY TD ; Start 06/04/21 at 11:00; Status Cancel Miscellaneous (Lidoderm Patch Removal) 1 ea QHS MC Last administered on 06/05/21at 21:00; Start 06/04/21 at 21:00 Acetaminophen/ Hydrocodone Bitart (Lortab 5/325) 1 tab PRN Q4HRS PRN PO MODERATE PAIN Last administered on 06/05/21at 04:40; Start 06/04/21 at 10:45 Acetaminophen/ Hydrocodone Bitart (Lortab 5/325) 2 tab PRN Q4HRS PRN PO SEVERE PAIN Last administered on 06/06/21at 08:07; Start 06/04/21 at 10:45 Nystatin (Nystop) 1 laura BID TP Last administered on 06/05/21at 21:17; Start 05/11 09/28 at 14:00 Piperacillin Sod/ Tazobactam Sod (Zosyn Per Pharmacy) 1 each PRN DAILY PRN MC SEE COMMENTS; Start 06/04/21 at 14:15 Piperacillin Sod/ Tazobactam Sod 4.5 gm/Dextrose 100 ml @ 200 mls/hr Q6HRS IV Last administered on 06/05/21at 05:38; Start 06/04/21 at 16:00; Stop 06/05/21 at 07:44; Status DC Lactobacillus Rhamnosus (Culturelle) 1 cap BID PO Last administered on 05/11 11/28at 08:04; Start 06/04/21 at 21:00 Sodium Chloride (Saline Mist Nasal) 1 laura PRN Q1HR PRN NS NASAL CONGESTION Last administered on 06/05/21at 06:33; Start 06/04/21 at 19:45 Piperacillin Sod/ Tazobactam Sod 3.375 gm/Sodium Chloride 50 ml @ 100 mls/hr Q6 HRS IV Last administered on 06/06/21at 05:27; Start 06/05/21 at 12:00 Active Scripts Active Reported Bumetanide 1 Mg Tablet 1 Mg PO BID Carvedilol 25 Mg Tablet 25 Mg PO BIDWMEALS Eliquis (Apixaban) 2.5 Mg Tablet 2.5 Mg PO BID Restasis (Cyclosporine) 1 Each Droperette 1 Drop EACHEYE BID Tylenol (Acetaminophen) 325 Mg Tablet 650 Mg PO QHS PRN Magnesium Oxide 400 Mg Tablet 400 Mg PO DAILY Protonix (Pantoprazole Sodium) 20 Mg Tablet.dr 40 Mg PO DAILY Novolog (Insulin Aspart) 100 Unit/1 Ml Cartridge 16 Unit SQ TIDAC Lantus Solostar (Insulin Glargine,Hum.rec.anlog) 100 Unit/1 Ml Insuln.pen 50 Unit SQ QHS Novolog Flexpen (Insulin Aspart) 100 Unit/1 Ml Insuln.pen 0 SQ TIDWMEALS PRN Celebrex (Celecoxib) 100 Mg Capsule 1 Cap PO PRN BID Nitrostat (Nitroglycerin) 0.4 Mg Tab.subl 1 Tab SL UD PRN Vitamin D (Cholecalciferol (Vitamin D3)) 1,000 Unit Capsule 1 Cap PO DAILY Losartan Potassium 50 Mg Tablet 50 Mg PO DAILY Synthroid (Levothyroxine Sodium) 88 Mcg Tablet 1 Tab PO DAILY Gave this morning Take tomorrow Pravastatin Sodium 20 Mg Tablet 1 Tab PO DAILY Vitals/I & O Vital Sign - Last 24 Hours 06/05/21 06/05/21 06/05/21 06/05/21 10:32 11:05 15:00 16:43 Temp 97.9 97.9 97.9 97.9 Pulse 70 77 75 75 Resp 18 18 B/P (MAP) 128/57 128/57 (80) 119/57 (77) 119/57 Pulse Ox 93 92 O2 Delivery Nasal Cannula Nasal Cannula O2 Flow Rate 8.0 8.0 06/05/21 06/05/21 06/05/21 06/05/21 17:57 18:27 19:11 19:44 Temp 97.5 97.5 Pulse 74 Resp 20 18 18 B/P (MAP) 93/44 (60) Pulse Ox 96 O2 Delivery Nasal Cannula Nasal Cannula O2 Flow Rate 8.0 7.0 06/05/21 06/05/21 06/05/21 06/06/21 21:38 22:08 22:44 02:50 Temp 97.8 97.6 97.8 97.6 Pulse 70 73 Resp 18 18 18 18 B/P (MAP) 127/56 (79) 138/61 (86) Pulse Ox 100 97 97 96 O2 Delivery Nasal Cannula Nasal Cannula Nasal Cannula Nasal Cannula O2 Flow Rate 8.0 8.0 8.0 8.0 06/06/21 06/06/21 06/06/21 06/06/21 03:23 03:53 07:00 08:04 Temp 97.2 97.2 Pulse 69 76 Resp 21 B/P (MAP) 130/60 (83) 130/60 Pulse Ox 96 96 95 O2 Delivery Nasal Cannula Nasal Cannula Nasal Cannula O2 Flow Rate 7.0 5.0 5.0 06/06/21 06/06/21 08:06 08:07 Pulse 70 B/P (MAP) 130/60 Pulse Ox 96 O2 Delivery Nasal Cannula O2 Flow Rate 5.0 Intake and Output 06/05/21 06/05/21 06/06/21 15:00 23:00 07:00 Intake Total 0 ml 50 ml Output Total 200 ml 500 ml 700 ml Balance -200 ml -500 ml -650 ml Justifications for Admission Other Justification MELANIE ABDULLAHI MD Jun 06, 2021 10:06
[2021-06-06 10:42] VITALS: BP 117/51
--- NOTE | 2021-06-06 10:45 | PDOC ---
BRIAN CORDERO [employer]ATING AND [employer]ENTILATING DRAFTER 06/06/21 1045: CARDIO Progress Notes Date and Time Date of Service 06/06/21 Time of Evaluation 1045 Subjective Subjective: Other (c/o rectum hurting) Vitals Vitals Vital Signs Date Time Temp Pulse Resp B/P (MAP) Pulse Ox O2 Delivery O2 Flow Rate FiO2 06/06/21 08:07 96 Nasal Cannula 5.0 06/06/21 08:06 70 130/60 06/06/21 07:00 97.2 21 97.2 Weight Weight [ ] Input and Output Intake and Output Intake and Output 06/06/21 06:59 Intake Total 50 ml Output Total 1400 ml Balance -1350 ml Intake Oral 0 ml IV Total 50 ml Output Urine Total 1400 ml Laboratory Labs Laboratory Tests Test 06/05/21 11:37 06/05/21 16:40 06/05/21 21:04 06/05/21 22:45 Glucose (Fingerstick) 159 mg/dL (70-99) 156 mg/dL (70-99) 190 mg/dL (70-99) Vancomycin Level Trough 18.7 mcg/mL (10.0-20.0) Vancomycin Last Dose Date 06/04/2021 Vancomycin Last Dose Time 2300 Test 06/06/21 03:45 06/06/21 08:02 Creatinine 1.8 mg/dL (0.6-1.0) Estimated GFR (Cockcroft-Gault) 26.9 Glucose (Fingerstick) 131 mg/dL (70-99) Microbiology Micro Microbiology 06/03/21 Urine Culture - Final, Complete Klebsiella Pneumoniae 06/03/21 Blood Culture - Preliminary, Resulted NO GROWTH AFTER 2 DAYS Physical Exam HEENT: Neck Supple W Full Motion Chest: Symmetric LUNGS: Other (diminished bases) Heart: irregularly irregular (AFIB, intermittent slow VR) Abdomen: Soft N/T, Other (obese) Extremities: Other (2+ bilateral LE edema ) Neurology: alert, oriented, follow commands Assessment Assessment 1. Syncopal episode; ? vasovagal episode while on toilet. Cannot rule out contributing bradyarrhythmia. CT head and neck without acute findings. 2. Chronic AFIB; with intermittent slow VR. Tele noted with bradycardia with HR lowest in the upper 30's. Brief pauses of up to 2 seconds noted. 3. Mild acute on chronic diastolic CHF; Echo 10/26 with preserved LV systolic function 4. CAD ; s/p stents x2 approx 4 yrs ago. Clinically stable. CP free 5. PAD s/p atherectomy/[employer]UD[employer] CLERK to left SFA 2019 6. Hypertension; controlled 7. Hyperlipidemia 8. Diabetes, II 9. LARRY on CKD; Cr ^ 1.8 10. Hypothyroidism 11. UTI 12. Anemia, thrombocytopenia Recommendations Decrease Coreg Monitor tele for further bradycardia Echocardiogram Hold Bumex, losartan with ^ Cr. Consider for RHC in am. 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 Secondary prevention; Plavix therapy. No ASA as patient is on Eliquis Continue current antiHTN therapy Supportive care Okay to discharge from a CV standpoint. Justicifation of Admission Dx: Justifications for Admission: Justification of Admission Dx: Yes JUVE QUIROZ MD 06/06/21 1711: CARDIO Progress Notes Plan Plan Patient seen and examined. Agree with above nurse practitioner note. Given the patient's acute renal injury and difficult to ascertain volume status we will plan for right heart catheterization tomorrow BRIAN CORDERO APRN Jun 06, 2021 10:45 JUVE QUIROZ MD Jun 06, 2021 17:11
--- NOTE | 2021-06-06 11:10 | PDOC ---
[employer] PROGRESS NOTE Date of Service DOS: DATE: 06/06/21 TIME: 11:06 Chief Complaint Chief Complaint sepsis, UTI pneumonia, HCAP, broad abx CHF chronic combined, with afib, Coaglupathy, NOS, on eliquis morbid obesity, BMI 47 weakness and debility, syncope and fall, right knee injury, poss bone bruise. consult physiatry DM2 insulin dependent macrocytosis, CKD 3-4 History of Present Illness History of Present Illness 06/06/21 Patient seen and examined bedside with present We reiterated the need for rehab and PT/OT. Bárbara is still resistant but seems to be more agreeable with pursuing rehab and says he will discuss it with her Patient did not want her knee to be touched or examined, complains of pain and discomfort Chart reviewed Discussed with RN 06/05 complains of knee pain, poor mobility, pain meds help and lidoderm patch helps her , [place], is here today try to improve above problmes Vitals/I&O Vitals/I&O: Vital Signs Date Time Temp Pulse Resp B/P (MAP) Pulse Ox O2 Delivery O2 Flow Rate FiO2 06/06/21 10:42 97.7 77 21 117/51 (73) 94 Nasal Cannula 5.0 97.7 I & O 06/05/21 06/05/21 06/06/21 15:00 23:00 07:00 Intake Total 0 ml 50 ml Output Total 200 ml 500 ml 700 ml Balance -200 ml -500 ml -650 ml Physical Exam General: No acute distress Heart: Regular rate Lungs: Clear Abdomen: Normal bowel sounds Extremities: No cyanosis, Normal pulses, Other (edema) Skin: No rashes Labs Labs: Laboratory Tests Test 06/05/21 11:37 06/05/21 16:40 06/05/21 21:04 06/05/21 22:45 Glucose (Fingerstick) 159 mg/dL (70-99) 156 mg/dL (70-99) 190 mg/dL (70-99) Vancomycin Level Trough 18.7 mcg/mL (10.0-20.0) Vancomycin Last Dose Date 06/04/2021 Vancomycin Last Dose Time 2300 Test 06/06/21 03:45 06/06/21 08:02 Creatinine 1.8 mg/dL (0.6-1.0) Estimated GFR (Cockcroft-Gault) 26.9 Glucose (Fingerstick) 131 mg/dL (70-99) Assessment and Plan Assessmemt and Plan Problems Medical Problems: (1) Chronic respiratory failure with hypoxia, on home O2 therapy Status: Acute (2) Diabetes mellitus Status: Acute (3) Failure to thrive Status: Acute (4) Generalized weakness Status: Acute (5) Healthcare-associated pneumonia Status: Acute (6) Syncope Status: Acute (7) Urinary tract infection Status: Acute Problems Sepsis UTI pneumonia, HCAP, broad abx CHF chronic combined, with afib, Coaglupathy, NOS morbid obesity, BMI 47 weakness and debility, syncope and fall, right knee injury, poss bone bruise. consult physiatry DM2 insulin dependent macrocytosis, CKD 3-4 Plan D/c dispo pending Cont antibiotics Cont Eliquis Cont protonix Cont using incentive spirometer Appreciate cardiology, pulmonary, and physiatry input Cont PT/OT, though she has been refusing DVT prophylaxis Home meds Full code Comment Review of Relevant I have reviewed the following items ashwini (where applicable) has been applied. Medications: Current Medications Medications (Trade) Dose Ordered Sig/Massimo Route PRN Reason Start Time Stop Time Status Last Admin Dose Admin Vancomycin HCl (Vancomycin Trough Level) 1 each 1X ONCE MC 06/05/21 22:30 06/05/21 22:31 DC 06/05/21 22:30 Piperacillin Sod/ Tazobactam Sod 3.375 gm/Sodium Chloride 50 ml @ 100 mls/hr Q6HRS IV 06/05/21 12:00 06/06/21 05:27 Justifications for Admission Other Justification AC GARY III DO Jun 06, 2021 11:10
[2021-06-06] MEDS: CELECOXIB 100 MG CAPSULE. PO PRN (11:50)
[2021-06-06] MEDS: NYSTATIN TOPICAL POWDER 15GM BOTTLE. TP SCH ×2 (11:52→20:36)
[2021-06-06] MEDS: DICLOFENAC SODIUM 1% TOPICAL GEL 100GM TUBE. TP SCH ×2 (11:52→20:35)
--- NOTE | 2021-06-06 13:01 | NUR ---
SS following for discharge planning. SS reviewed pt chart and discussed with pt RN. Pt is from home with spouse and is currently requiring oxygen at five liters nasal canula. COVID19 negative on rapid test. Pt on IV Zosyn and IV Vancomycin. Cardiology, Pulmonology, and Dr. Longo following. PT/OT ordered. PT recommended snf unit. SS met with pt and spouse in room and discussed discharge planning and snf unit. Pt and spouse requesting referral to [facility], ; fax [phone]. Referral phoned and faxed as requested. COVID19 PCR requested for placement. SS will continue to follow for discharge planning.
[2021-06-06] MEDS: POLYETHYLENE GLYCOL 3350 17 GM PACKET. PO SCH (13:15)
[2021-06-06] MEDS: DOCUSATE SODIUM 100 MG CAPSULE. PO SCH (13:42)
[2021-06-06 14:22] VITALS: BP 135/65
--- NOTE | 2021-06-06 17:22 | NUR ---
Wound/Ostomy Care Wound Type/Assessment: Patient seen per wound care consult. There are no open wounds at this time. Patient has redness and yeast to the pannus and groins, Nystatin powder being utilized. Calazime and Nystatin to coccyx/buttock. No other areas of concern. Patient groins/pannus/buttocks/coccyx cleansed and dried, Nystatin and Calazime applied. Treatment Recommendations/Plan: Recommendations to continue with Nystatin powder and the Calazime cream as needed. Education provided: Patient educated on POC and PU prevention. Offloading surface/device: Patient able to assist with self turn. Recommended Referrals/Tests: N/A Discharge Recommendations for dressings: Wound care will sign off at this time. Please re consult wound care if needed. Bed lowered and call light in reach.
[2021-06-06 19:14] VITALS: BP 144/67
[2021-06-06] MEDS: PATCH REMOVAL. MC SCH (20:36)
[2021-06-06] MEDS: INSULIN GLARGINE SYRINGE. SQ SCH (20:39)
[2021-06-06] MEDS: VANCOMYCIN 2 GM in IV NORMAL SALINE 500ML BAG 500 ML IV SCH (23:00)
[2021-06-06 23:06] VITALS: BP 143/72
[2021-06-07] VITALS (16 sets, daily range): BP systolic 117–191; BP diastolic 56–109
[2021-06-07] MEDS: PIPERACILLIN/TAZOBACTAM 3.375 GM in IV NORMAL SALINE 50ML 50 ML IV SCH ×4 (01:13→17:46)
[2021-06-07] MEDS: LEVOTHYROXINE 88 MCG TABLET PO SCH (06:13)
[2021-06-07] MEDS: PANTOPRAZOLE 40 MG TABLET.DR. PO SCH (06:13)
[2021-06-07] MEDS: HYDROcodone/APAP 5/325MG 1 TAB TABLET PO PRN ×3 (06:29→21:42)
[2021-06-07] MEDS: INSULIN LISPRO 300 UNITS/3 ML VIAL. SQ SCH ×3 (08:00→17:00)
[2021-06-07] MEDS: LIDOCAINE (700MG/PATCH) PATCH. TD SCH (08:10)
[2021-06-07] MEDS: NYSTATIN TOPICAL POWDER 15GM BOTTLE. TP SCH ×2 (08:11→21:00)
[2021-06-07] MEDS: DICLOFENAC SODIUM 1% TOPICAL GEL 100GM TUBE. TP SCH ×2 (08:13→21:00)
[2021-06-07] MEDS: cycloSPORINE 0.05% OPHTH DROPERETTE. OU SCH ×2 (08:13→21:44)
[2021-06-07] MEDS: CARVEDILOL 12.5 MG TABLET. PO SCH ×2 (08:14→17:45)
--- NOTE | 2021-06-07 10:37 | PDOC ---
[employer] PROGRESS NOTE Date of Service DOS: DATE: 06/07/21 TIME: 10:35 Chief Complaint Chief Complaint sepsis, UTI pneumonia, HCAP, broad abx CHF chronic combined, with afib, Coaglupathy, NOS, on eliquis morbid obesity, BMI 47 weakness and debility, syncope and fall, right knee injury, poss bone bruise. consult physiatry DM2 insulin dependent macrocytosis, CKD 3-4 History of Present Illness History of Present Illness 06/07/21 Patient seen and examined at beside with present They have agreed to placement in rehab, awaiting placement Going for cath today Chart reviewed Discussed with RN 06/06/21 Patient seen and examined bedside with present We reiterated the need for rehab and PT/OT. Bárbara is still resistant but seems to be more agreeable with pursuing rehab and says he will discuss it with her Patient did not want her knee to be touched or examined, complains of pain and discomfort Chart reviewed Discussed with RN 06/05 complains of knee pain, poor mobility, pain meds help and lidoderm patch helps her , [place] Citizen, is here today try to improve above problmes Vitals/I&O Vitals/I&O: Vital Signs Date Time Temp Pulse Resp B/P (MAP) Pulse Ox O2 Delivery O2 Flow Rate FiO2 06/07/21 08:14 85 184/87 06/07/21 08:00 Nasal Cannula 5.0 06/07/21 07:00 98.0 21 94 98.0 I & O 0 06/06/21 06/06/21 06/07/21 15:00 23:00 07:00 Intake Total 200 ml 300 ml 0 ml Output Total 700 ml 1000 ml Balance -500 ml 300 ml -1000 ml Physical Exam General: No acute distress Heart: Regular rate Lungs: Clear Abdomen: Normal bowel sounds Extremities: No cyanosis, Normal pulses, Other (edema) Skin: No rashes Labs Labs: Laboratory Tests Test 06/06/21 11:43 06/06/21 16:43 06/06/21 20:32 06/07/21 08:12 Glucose (Fingerstick) 169 mg/dL (70-99) 127 mg/dL (70-99) 142 mg/dL (70-99) 150 mg/dL (70-99) Assessment and Plan Assessmemt and Plan Problems Medical Problems: (1) Chronic respiratory failure with hypoxia, on home O2 therapy Status: Acute (2) Diabetes mellitus Status: Acute (3) Failure to thrive Status: Acute (4) Generalized weakness Status: Acute (5) Healthcare-associated pneumonia Status: Acute (6) Syncope Status: Acute (7) Urinary tract infection Status: Acute Problems Sepsis UTI pneumonia, HCAP, broad abx CHF chronic combined, with afib, Coaglupathy, NOS morbid obesity, BMI 47 weakness and debility, syncope and fall, right knee injury, poss bone bruise. consult physiatry DM2 insulin dependent macrocytosis, CKD 3-4 Plan D/c dispo pending Cont antibiotics Cont Eliquis Cont protonix Cont using incentive spirometer Starting humalong with meals and Lantus at night Appreciate cardiology, pulmonary, and physiatry input Cont PT/OT, though she has been refusing DVT prophylaxis Home meds Full code Comment Review of Relevant I have reviewed the following items ashwini (where applicable) has been applied. Medications: Current Medications Medications (Trade) Dose Ordered Sig/Massimo Route PRN Reason Start Time Stop Time Status Last Admin Dose Admin Docusate Sodium (Colace) 100 mg DAILY PO 06/06/21 13:15 06/06/21 13:42 Carvedilol (Coreg) 12.5 mg BIDWMEALS PO 06/06/21 17:00 06/07/21 08:14 Justifications for Admission Other Justification AC GARY III DO Jun 07, 2021 10:37
[2021-06-07] MEDS ORDERED: MIDAZOLAM HCL/PF 2 MG/2 ML VIAL. ONE (10:50)
[2021-06-07] MEDS ORDERED: fentaNYL PF VIAL 100 MCG/2 ML VIAL ONE (10:50)
[2021-06-07] MEDS ORDERED: MIDAZOLAM HCL/PF 2 MG/2 ML VIAL. IV ONE (11:00)
[2021-06-07] MEDS ORDERED: LIDOCAINE 1% Multi-Dose 20 ML VIAL. INJ ONE (11:00)
[2021-06-07] MEDS ORDERED: fentaNYL PF VIAL 100 MCG/2 ML VIAL IV ONE (11:00)
[2021-06-07] MEDS ORDERED: NITROGLYCERIN SUBLINGUAL 0.4 MG BOTTLE OF 25. SL ONE (11:25)
[2021-06-07] MEDS ORDERED: ALBUTEROL SULFATE 2.5 MG/3 ML NEBU. NEB ONE (11:30)
[2021-06-07] MEDS ORDERED: IPRATRPIUM/ALBUTEROL 0.5/2.5MG 3 ML NEBU. ONE (11:47)
--- NOTE | 2021-06-07 12:07 | PDOC ---
PROGRESS NOTES Date of Service DATE: 06/07/21 TIME: 12:04 Subjective Subjective She admits continued right knee joint pain and stiffness. Objective Objective Vital Signs Date Time Temp Pulse Resp B/P (MAP) Pulse Ox O2 Delivery O2 Flow Rate FiO2 06/07/21 11:26 85 194/98 06/07/21 10:37 97.6 20 94 Nasal Cannula 5.0 97.6 Intake and Output 06/07/21 07:00 Intake Total 500 ml Output Total 1700 ml Balance -1200 ml Intake Oral 500 ml Output Urine Total 1700 ml Physical Exam Physical Exam She is alert,supine in bed and still protecting her right knee joint and she did not get her right knee hinge brace or knee immobilizer yet. She worked with physical therapy yesterday with sitting. Assessment Assessment Problems Medical Problems: (1) Chronic respiratory failure with hypoxia, on home O2 therapy Status: Acute (2) Diabetes mellitus Status: Acute (3) Failure to thrive Status: Acute (4) Generalized weakness Status: Acute (5) Healthcare-associated pneumonia Status: Acute (6) Syncope Status: Acute (7) Urinary tract infection Status: Acute Plan Plan of Care To continue present rehab efforts as tolerated. Comment Review of Relevant I have reviewed the following items ashwini (where applicable) has been applied. Labs Laboratory Tests Test 06/05/21 16:40 06/05/21 21:04 06/05/21 22:45 06/06/21 03:45 Glucose (Fingerstick) 156 mg/dL (70-99) 190 mg/dL (70-99) Vancomycin Level Trough 18.7 mcg/mL (10.0-20.0) Vancomycin Last Dose Date 06/04/2021 Vancomycin Last Dose Time 2300 Creatinine 1.8 mg/dL (0.6-1.0) Estimated GFR (Cockcroft-Gault) 26.9 Test 06/06/21 08:02 06/06/21 11:43 06/06/21 16:43 06/06/21 20:32 Glucose (Fingerstick) 131 mg/dL (70-99) 169 mg/dL (70-99) 127 mg/dL (70-99) 142 mg/dL (70-99) Test 06/07/21 08:12 Glucose (Fingerstick) 150 mg/dL (70-99) Laboratory Tests Test 06/06/21 16:43 06/06/21 20:32 06/07/21 08:12 Glucose (Fingerstick) 127 mg/dL (70-99) 142 mg/dL (70-99) 150 mg/dL (70-99) Microbiology 06/03/21 Urine Culture - Final, Complete Klebsiella Pneumoniae 06/03/21 Blood Culture - Preliminary, Resulted NO GROWTH AFTER 3 DAYS Medications Current Medications Vancomycin HCl 1.5 gm/Sodium Chloride 500 ml @ 250 mls/hr 1X ONCE IV ; Start 06/03/21 at 23:00; Stop 06/04/21 at 00:59; Status UNV Piperacillin Sod/ Tazobactam Sod 4.5 gm/Sodium Chloride 100 ml @ 200 mls/hr 1X ONCE IV Last administered on 06/04/21at 00:02; Start 06/03/21 at 23:30; Stop 06/03/21 at 23:59; Status DC Furosemide (Lasix) 20 mg 1X ONCE IVP Last administered on 06/04/21at 00:00; Start 06/03/21 at 23:30; Stop 06/03/21 at 23:31; Status DC Vancomycin HCl (Vanco Per Pharmacy) 1 each PRN DAILY PRN MC SEE COMMENTS Last administered on 06/05/21at 23:57; Start 06/03/21 at 23:45 Vancomycin HCl 2 gm/Sodium Chloride 500 ml @ 250 mls/hr 1X ONCE IV Last administered on 06/04/21at 00:16; Start 06/04/21 at 00:00; Stop 06/04/21 at 01:59; Status DC Acetaminophen/ Hydrocodone Bitart (Lortab 5/325) 1 tab 1X ONCE PO Last administered on 06/04/21at 00:14; Start 06/04/21 at 00:30; Stop 06/04/21 at 00:31; Status DC Ondansetron HCl (Zofran) 4 mg PRN Q8HRS PRN IVP NAUSEA/VOMITING 1ST CHOICE; Start 06/04/21 at 01:45; Stop 06/05/21 at 01:44; Status DC Acetaminophen (Tylenol) 650 mg PRN Q6HRS PRN PO MILD PAIN / TEMP > 100.3'F; Start 06/04/21 at 01:45 Diphenhydramine HCl (Benadryl) 25 mg PRN Q6HRS PRN PO insomnia or itching Last administered on 06/05/21at 21:16; Start 06/04/21 at 01:45 Fentanyl Citrate (Fentanyl 2ml Vial) 50 mcg PRN Q4HRS PRN IVP SEVERE PAIN 7-10 Last administered on 06/04/21at 02:18; Start 06/04/21 at 01:45; Stop 06/04/21 at 04:58; Status DC Vancomycin HCl 2 gm/Sodium Chloride 500 ml @ 250 mls/hr Q24H IV Last administered on 06/06/21at 23:00; Start 06/04/21 at 23:00 Vancomycin HCl (Vancomycin Trough Level) 1 each 1X ONCE MC Last administered on 06/05/21at 22:30; Start 06/05/21 at 22:30; Stop 06/05/21 at 22:31; Status DC Fentanyl Citrate (Fentanyl 2ml Vial) 50 mcg PRN Q2HR PRN IVP SEVERE PAIN 7-10 Last administered on 06/04/21at 08:49; Start 06/04/21 at 05:00 Acetaminophen (Tylenol) 650 mg PRN QHS PRN PO MILD PAIN 1-3; Start 06/04/21 at 05:00 Apixaban (Eliquis) 2.5 mg BID PO Last administered on 06/06/21at 08:05; Start 06/04/21 at 09:00; Stop 06/06/21 at 15:58; Status DC Bumetanide (Bumex) 1 mg BID94 PO Last administered on 06/06/21 08:05; Start 06/04/21 at 09:00; Stop 06/06/21 at 14:53; Status DC Celecoxib (CeleBREX) 100 mg PRN BID PRN PO INFLAMMATION Last administered on 06/06/21at 11:50; Start 06/04/21 at 05:00 Cyclosporine (Restasis) 1 drop BID OU Last administered on 06/07/21 08:13; Start 06/04/21 at 09:00 Levothyroxine Sodium (Synthroid) 88 mcg DAILY06 PO Last administered on 06/07/21 06:13; Start 06/04/21 at 06:00 Losartan Potassium (Cozaar) 50 mg DAILY PO Last administered on 06/06/21at 08:04; Start 06/04/21 at 09:00; Stop 06/06/21 at 14:53; Status DC Magnesium Oxide (Magnesium Oxide) 400 mg DAILY PO Last administered on 06/06/21at 08:05; Start 06/04/21 at 09:00 Nitroglycerin (Nitrostat) 0.4 mg PRN Q5MIN PRN SL CHEST PAIN Last administered on 06/07/21 11:26; Start 06/04/21 at 05:00 Carvedilol (Coreg) 25 mg BIDWMEALS PO Last administered on 06/06/21at 08:06; Start 06/04/21 at 08:00; Stop 06/06/21 at 14:53; Status DC Vitamin D (Vitamin D3) 1,000 unit DAILY PO Last administered on 06/06/21at 08:05; Start 06/04/21 at 09:00 Insulin Human Lispro (HumaLOG) 16 units TIDWMEALS SQ Last administered on 06/06/21at 12:01; Start 06/04/21 at 08:00 Insulin Glargine (Lantus Syringe) 50 unit QHS SQ Last administered on 06/06/21at 20:39; Start 06/04/21 at 21:00 Pantoprazole Sodium (Protonix) 40 mg DAILYAC PO Last administered on 06/07/21 06:13; Start 06/04/21 at 07:30 Atorvastatin Calcium (Lipitor) 5 mg DAILY PO Last administered on 06/06/21at 08: 06; Start 06/04/21 at 09:00 Dextrose (Dextrose 50%-Water Syringe) 12.5 gm PRN Q15MIN PRN IV SEE COMMENTS; Start 06/04/21 at 05:30 Dextrose (Iv Dextrose 5%) 250 ml PRN Q15MIN PRN IV SEE COMMENTS; Start 06/04/21 at 05:30 Info (Anti-Coagulation Monitoring By Pharmacy) 1 each PRN DAILY PRN MC PER PROTOCOL Last administered on 06/04/21at 05:33; Start 06/04/21 at 05:30 Vitamin B Complex (Folbic Tablet) 1 tab DAILY PO Last administered on 06/06/21at 08:05; Start 06/04/21 at 11:00 Lidocaine (Lidoderm) 1 patch DAILY TD Last administered on 06/07/21at 08:10; Start 06/04/21 at 11:30 Miscellaneous (Lidoderm Patch Removal) 1 ea QHS MC ; Start 06/04/21 at 21:00; Stop 06/04/21 at 10:43; Status DC Diclofenac Sodium (Voltaren) 1 laura BID TP Last administered on 06/07/21at 08:13; Start 06/04/21 at 11:30 Lidocaine (Lidoderm) 1 patch DAILY TD ; Start 06/04/21 at 11:00; Status Cancel Miscellaneous (Lidoderm Patch Removal) 1 ea QHS MC Last administered on 06/06/21at 20:36; Start 06/04/21 at 21:00 Acetaminophen/ Hydrocodone Bitart (Lortab 5/325) 1 tab PRN Q4HRS PRN PO MODERATE PAIN Last administered on 06/06/21at 13:41; Start 06/04/21 at 10:45 Acetaminophen/ Hydrocodone Bitart (Lortab 5/325) 2 tab PRN Q4HRS PRN PO SEVERE PAIN Last administered on 06/07/21at 06:29; Start 06/04/21 at 10:45 Nystatin (Nystop) 1 laura BID TP Last administered on 06/07/21at 08:11; Start 06/04/21 at 14:00 Piperacillin Sod/ Tazobactam Sod (Zosyn Per Pharmacy) 1 each PRN DAILY PRN MC SEE COMMENTS; Start 06/04/21 at 14:15 Piperacillin Sod/ Tazobactam Sod 4.5 gm/Dextrose 100 ml @ 200 mls/hr Q6HRS IV Last administered on 06/05/21at 05:38; Start 06/04/21 at 16:00; Stop 06/05/21 at 07:44; Status DC Lactobacillus Rhamnosus (Culturelle) 1 cap BID PO Last administered on 06/06/21at 20:34; Start 06/04/21 at 21:00 Sodium Chloride (Saline Mist Nasal) 1 laura PRN Q1HR PRN NS NASAL CONGESTION Last administered on 06/05/21at 06:33; Start 06/04/21 at 19:45 Piperacillin Sod/ Tazobactam Sod 3.375 gm/Sodium Chloride 50 ml @ 100 mls/hr Q6HRS IV Last administered on 06/07/21at 06:13; Start 06/05/21 at 12:00 Docusate Sodium (Colace) 100 mg DAILY PO Last administered on 06/06/21at 13:42; Start 06/06/21 at 13:15 Polyethylene Glycol (miraLAX PACKET) 17 gm DAILY PO ; Start 06/06/21 at 13:15 Carvedilol (Coreg) 12.5 mg BIDWMEALS PO Last administered on 06/07/21at 08:14; Start 06/06/21 at 17:00 Apixaban (Eliquis) 2.5 mg BID PO ; Start 06/07/21 at 21:00 Heparin Sodium/ Sodium Chloride 500 ml @ As Directed STK-MED ONCE .ROUTE ; Start 06/07/21 at 10:42; Stop 06/07/21 at 10:42; Status DC Fentanyl Citrate (Fentanyl 2ml Vial) 100 mcg STK-MED ONCE .ROUTE ; Start 06/07/21 at 10:50; Stop 06/07/21 at 10:50; Status DC Midazolam HCl (Versed) 2 mg STK-MED ONCE .ROUTE ; Start 06/07/21 at 10:50; Stop 06/07/21 at 10:50; Status DC Heparin Sodium/ Sodium Chloride (HEPARIN for ARTERIAL LINE FLUSH) 1,000 unit 1X ONCE IART Last administered on 06/07/21at 11:00; Start 06/07/21 at 11:00; Stop 06/07/21 at 11:10; Status DC Midazolam HCl (Versed) 2 mg 1X ONCE IV ; Start 06/07/21 at 11:00; Stop 06/07/21 at 11:11; Status DC Fentanyl Citrate (Fentanyl 2ml Vial) 100 mcg 1X ONCE IV ; Start 06/07/21 at 11:00; Stop 06/07/21 at 11:10; Status DC Lidocaine HCl (Lidocaine 1% 20ml Vial) 20 ml 1X ONCE INJ ; Start 06/07/21 at 11:00; Stop 06/07/21 at 11:10; Status DC Nitroglycerin (Nitrostat) 0.4 mg STK-MED ONCE SL ; Start 06/07/21 at 11:25; Stop 06/07/21 at 11:25; Status DC Albuterol Sulfate (Ventolin Neb Soln) 2.5 mg 1X ONCE NEB ; Start 06/07/21 at 11:30; Stop 06/07/21 at 11:31; Status DC Albuterol/ Ipratropium (Duoneb) 3 ml STK-MED ONCE .ROUTE ; Start 06/07/21 at 11:47; Stop 06/07/21 at 11:47; Status DC Active Scripts Active Reported Bumetanide 1 Mg Tablet 1 Mg PO BID Carvedilol 25 Mg Tablet 25 Mg PO BIDWMEALS Eliquis (Apixaban) 2.5 Mg Tablet 2.5 Mg PO BID Restasis (Cyclosporine) 1 Each Droperette 1 Drop EACHEYE BID Tylenol (Acetaminophen) 325 Mg Tablet 650 Mg PO QHS PRN Magnesium Oxide 400 Mg Tablet 400 Mg PO DAILY Protonix (Pantoprazole Sodium) 20 Mg Tablet.dr 40 Mg PO DAILY Novolog (Insulin Aspart) 100 Unit/1 Ml Cartridge 16 Unit SQ TIDAC Lantus Solostar (Insulin Glargine,Hum.rec.anlog) 100 Unit/1 Ml Insuln.pen 50 Unit SQ QHS Novolog Flexpen (Insulin Aspart) 100 Unit/1 Ml Insuln.pen 0 SQ TIDWMEALS PRN Celebrex (Celecoxib) 100 Mg Capsule 1 Cap PO PRN BID Nitrostat (Nitroglycerin) 0.4 Mg Tab.subl 1 Tab SL UD PRN Vitamin D (Cholecalciferol (Vitamin D3)) 1,000 Unit Capsule 1 Cap PO DAILY Losartan Potassium 50 Mg Tablet 50 Mg PO DAILY Synthroid (Levothyroxine Sodium) 88 Mcg Tablet 1 Tab PO DAILY Gave this morning Take tomorrow Pravastatin Sodium 20 Mg Tablet 1 Tab PO DAILY Vitals/I & O Vital Sign - Last 24 Hours 06/06/21 06/06/21 06/06/21 06/06/21 13:41 14:11 14:22 18:25 Temp 97.5 97.5 Pulse 78 78 Resp 21 B/P (MAP) 135/65 (88) 135/65 Pulse Ox 91 O2 Delivery Nasal Cannula Nasal Cannula Nasal Cannula O2 Flow Rate 5.0 5.0 5.0 06/06/21 06/06/21 06/06/21 06/06/21 18:26 18:56 19:14 20:00 Temp 97.3 97.3 Pulse 82 Resp 18 20 B/P (MAP) 144/67 (92) Pulse Ox 93 97 O2 Delivery Nasal Cannula Nasal Cannula Nasal Cannula Nasal Cannula O2 Flow Rate 5.0 5.0 3.0 5.0 06/06/21 06/06/21 06/06/21 06/07/21 22:30 23:00 23:06 02:52 Temp 97.5 97.8 97.5 97.8 Pulse 75 74 Resp 18 18 18 16 B/P (MAP) 143/72 (95) 117/64 (81) Pulse Ox 97 93 92 93 O2 Delivery Nasal Cannula Nasal Cannula Nasal Cannula Nasal Cannula O2 Flow Rate 5.0 5.0 3.0 3.0 06/07/21 06/07/21 06/07/21 06/07/21 06:29 06:59 07:00 08:00 Temp 98.0 98.0 Pulse 87 Resp 18 21 B/P (MAP) 184/87 (119) Pulse Ox 93 94 O2 Delivery Nasal Cannula Nasal Cannula Nasal Cannula Nasal Cannula O2 Flow Rate 5.0 5.0 5.0 5.0 06/07/21 06/07/21 06/07/21 08:14 10:37 11:26 Temp 97.6 97.6 Pulse 85 89 85 Resp 20 B/P (MAP) 184/87 137/73 (94) 194/98 Pulse Ox 94 O2 Delivery Nasal Cannula O2 Flow Rate 5.0 Intake and Output 06/06/21 06/06/21 06/07/21 15:00 23:00 07:00 Intake Total 200 ml 300 ml 0 ml Output Total 700 ml 1000 ml Balance -500 ml 300 ml -1000 ml Justifications for Admission Other Justification MELANIE ABDULLAHI MD Jun 07, 2021 12:07
[2021-06-07] MEDS: LACTOBACILLUS RHAMNOSUS GG 1 CAPSULE. PO SCH ×2 (12:43→21:41)
[2021-06-07] MEDS: VITAMIN B12,B9,B6 COMPLEX 1 TABLET. PO SCH (12:43)
[2021-06-07] MEDS: DOCUSATE SODIUM 100 MG CAPSULE. PO SCH ×2 (12:43→21:41)
[2021-06-07] MEDS: ATORVASTATIN CALCIUM 10 MG TABLET. PO SCH ×2 (12:44→21:41)
[2021-06-07] MEDS: POLYETHYLENE GLYCOL 3350 17 GM PACKET. PO SCH (12:44)
[2021-06-07] MEDS: CHOLECALCIFEROL (VITAMIN D3) 1,000 UNIT TABLET PO SCH (12:44)
[2021-06-07] MEDS: MAGNESIUM OXIDE 400 MG TABLET PO SCH (12:44)
--- NOTE | 2021-06-07 13:21 | NUR ---
SS following up with discharge planning. SS reviewed pt chart and discussed with pt RN. Pt is from home with spouse and is currently requiring oxygen at five liters nasal canula. COVID19 test pending for placement. Pt on IV Vancomycin and IV Zosyn. Heart cath today. PT/OT recommended halfway unit. Pt declined clinically at [facility]. SS met with pt and pt's spouse in room and was asked to send referral to [facility], ; fax [phone]. SS phoned and faxed referral as requested. SS will continue to follow for discharge planning. Addendum: 06/07/21 at 1354 by FAB RAPHAEL Pt accepted at [facility] pending COVID19 PCR test result.
[2021-06-07] MEDS ORDERED: FUROSEMIDE 40 MG/4 ML VIAL. IVP ONE (14:00)
--- NOTE | 2021-06-07 16:11 | CARD ---
MR#: [id number] Date of Study: 06/07/2021 Ordering Physician: BRIAN CORDERO, Referring Physician: BRIAN CORDERO, Tech: RT David(R) APPROVED REPORT Technologist: Tati Boateng RT(R) Nurse: Milena Park RN Procedure(s) performed: MODERATE SEDATION TIME: 30 MINUTES FLUORO TIME: 3.3 MIN DOSE: 8.9 GYCM2 RHC HISTORY : previous CHF. INDICATION The indication(s) include : dyspnea. PROCEDURE NARRATIVE Clinical information: 81-year-old woman presented to the hospital in the setting of exertional dyspnea. She was initiated on diuresis for diastolic heart failure and after initial diuresis she had acute renal insufficiency. Due to her morbid obesity her volume status determination was difficult and therefore a right heart catheterization was planned. Procedure details: After proper informed consent the right arm was prepped and draped in usual sterile fashion. Under u ltrasound guidance and using a micropuncture needle a wire was placed in the right brachial vein. Ne xt, the sheath was upsized to a 5 Omani sheath. Next a 5 Omani PA catheter was advanced over a cor onary wire into the right atrium. Pressures and saturations were then obtained in the right heart ch ambers. At case completion the catheter and sheath were removed and hemostasis was achieved via manu al compression. Of note, after initially being placed on the catheterization table the patient had s ignificant orthopnea and hypoxia requiring initiation of BiPAP therapy which promptly resolved her sy mptoms. No acute complications. Findings: RA 15 mmHg RV 64/5/16 PA 66/29/42 Wedge 22 PA saturation 70% Arterial saturation via pulse oxygen measurement 97% on BiPAP Deepti cardiac output 6.4, cardiac index 2.6 Conclusion 1. Severe elevated biventricular filling pressures 2. Moderate pulmonary pretension, mean PA 42 mmHg 3. Normal cardiac output Recommendations 1. Continue diuresis with close monitoring of renal function. Signed by : Justin Ceballos, Electronically Approved : 06/07/2021 16:11:14
--- NOTE | 2021-06-07 18:43 | NUR ---
[facility] did not have a knee brace for patient & nirmal nava was too small. [facility] tried to fit patient with a knee brace but did not carry the size she needs. [facility] offered patient a post op ROM knee brace & she refused. Patient does not seem interested in wearing anything on her knee. Patient is now more concerned about her rectum hurting & needing to have a BM.
[2021-06-07] MEDS: PATCH REMOVAL. MC SCH (21:00)
[2021-06-07] MEDS: APIXABAN 2.5 MG TABLET. PO SCH (21:42)
[2021-06-07] MEDS: CELECOXIB 100 MG CAPSULE. PO PRN (21:42)
[2021-06-07] MEDS: INSULIN GLARGINE SYRINGE. SQ SCH (21:47)
[2021-06-08] MEDS: PIPERACILLIN/TAZOBACTAM 3.375 GM in IV NORMAL SALINE 50ML 50 ML IV SCH ×4 (00:25→17:02)
[2021-06-08] MEDS: HYDROcodone/APAP 5/325MG 1 TAB TABLET PO PRN ×3 (02:23→12:37)
[2021-06-08 02:42] VITALS: BP 229/96
[2021-06-08] MEDS: VANCOMYCIN 2 GM in IV NORMAL SALINE 500ML BAG 500 ML IV SCH (04:33)
[2021-06-08] MEDS: LEVOTHYROXINE 88 MCG TABLET PO SCH (06:09)
[2021-06-08 07:00] VITALS: BP 128/83
[2021-06-08] MEDS: MAGNESIUM OXIDE 400 MG TABLET PO SCH (08:13)
[2021-06-08] MEDS: DOCUSATE SODIUM 100 MG CAPSULE. PO SCH ×2 (08:15→21:00)
[2021-06-08] MEDS: LACTOBACILLUS RHAMNOSUS GG 1 CAPSULE. PO SCH ×2 (08:15→22:36)
[2021-06-08] MEDS: VITAMIN B12,B9,B6 COMPLEX 1 TABLET. PO SCH (08:15)
[2021-06-08] MEDS: PANTOPRAZOLE 40 MG TABLET.DR. PO SCH (08:15)
[2021-06-08] MEDS: POLYETHYLENE GLYCOL 3350 17 GM PACKET. PO SCH (08:15)
[2021-06-08] MEDS: APIXABAN 2.5 MG TABLET. PO SCH ×2 (08:16→22:36)
[2021-06-08] MEDS: LIDOCAINE (700MG/PATCH) PATCH. TD SCH (08:16)
[2021-06-08] MEDS: cycloSPORINE 0.05% OPHTH DROPERETTE. OU SCH ×2 (08:16→22:36)
[2021-06-08] MEDS: DICLOFENAC SODIUM 1% TOPICAL GEL 100GM TUBE. TP SCH ×2 (08:17→21:00)
[2021-06-08] MEDS: NYSTATIN TOPICAL POWDER 15GM BOTTLE. TP SCH ×2 (08:17→21:00)
[2021-06-08] MEDS: INSULIN LISPRO 300 UNITS/3 ML VIAL. SQ SCH ×3 (08:20→17:00)
[2021-06-08] MEDS: CHOLECALCIFEROL (VITAMIN D3) 1,000 UNIT TABLET PO SCH (08:33)
[2021-06-08] MEDS: CARVEDILOL 12.5 MG TABLET. PO SCH ×2 (08:36→17:02)
[2021-06-08] MEDS ORDERED: MAGNESIUM CITRATE 296 ML SOLUTION. PO ONE (08:45)
--- NOTE | 2021-06-08 09:22 | PDOC ---
[employer] PROGRESS NOTE Date of Service DOS: DATE: 06/08/21 TIME: 09:20 Chief Complaint Chief Complaint sepsis, UTI pneumonia, HCAP, broad abx CHF chronic combined, with afib, Coaglupathy, NOS, on eliquis morbid obesity, BMI 47 weakness and debility, syncope and fall, right knee injury, poss bone bruise. consult physiatry DM2 insulin dependent macrocytosis, CKD 3-4 History of Present Illness History of Present Illness 06/08/21 Patient seen and examined at bedside Was in distress about constipation, will give mag citrate to hopefully fix this Will d/c to SNU once negative COVID PCR is obtained Chart reviewed Discussed with RN and case management 06/07/21 Patient seen and examined at beside with present They have agreed to placement in rehab, awaiting placement Going for cath today Chart reviewed Discussed with RN 06/06/21 Patient seen and examined bedside with present We reiterated the need for rehab and PT/OT. Bárbara is still resistant but seems to be more agreeable with pursuing rehab and says he will discuss it with her Patient did not want her knee to be touched or examined, complains of pain and d iscomfort Chart reviewed Discussed with RN 06/05 complains of knee pain, poor mobility, pain meds help and lidoderm patch helps her , Cymraes, is here today try to improve above problmes Vitals/I&O Vitals/I&O: Vital Signs Date Time Temp Pulse Resp B/P (MAP) Pulse Ox O2 Delivery O2 Flow Rate FiO2 06/08/21 08:45 90 Nasal Cannula 10.0 06/08/21 08:36 94 128/83 06/08/21 07:00 97.4 22 97.4 I & O 06/07/21 06/07/21 06/08/21 15:00 23:00 07:00 Intake Total 100 ml 1000 ml Output Total 400 ml 1000 ml 2250 ml Balance -400 ml -900 ml -1250 ml Physical Exam General: No acute distress Heart: Regular rate Lungs: Clear Abdomen: Normal bowel sounds Extremities: No cyanosis, Normal pulses, Other (edema) Skin: No rashes Labs Labs: Laboratory Tests Test 06/07/21 13:00 06/07/21 16:38 06/07/21 19:44 06/08/21 08:19 Glucose (Fingerstick) 131 mg/dL (70-99) 167 mg/dL (70-99) 136 mg/dL (70-99) 176 mg/dL (70-99) Assessment and Plan Assessmemt and Plan Problems Medical Problems: (1) Chronic respiratory failure with hypoxia, on home O2 therapy Status: Acute (2) Diabetes mellitus Status: Acute (3) Failure to thrive Status: Acute (4) Generalized weakness Status: Acute (5) Healthcare-associated pneumonia Status: Acute (6) Syncope Status: Acute (7) Urinary tract infection Status: Acute Problems Sepsis UTI pneumonia, HCAP, broad abx CHF chronic combined, with afib, Coaglupathy, NOS morbid obesity, BMI 47 weakness and debility, syncope and fall, right knee injury, poss bone bruise. consult physiatry DM2 insulin dependent macrocytosis, CKD 3-4 Plan D/c dispo pending Give Mag Citrate for constipation Cont antibiotics Cont Eliquis Cont protonix Cont using incentive spirometer Starting humalong with meals and Lantus at night Appreciate cardiology, pulmonary, and physiatry input Cont PT/OT DVT prophylaxis Home meds Full code Comment Review of Relevant I have reviewed the following items ashwini (where applicable) has been applied. Medications: Current Medications Medications (Trade) Dose Ordered Sig/Massimo Route PRN Reason Start Time Stop Time Status Last Admin Dose Admin Apixaban (Eliquis) 2.5 mg BID PO 06/07/21 21:00 06/08/21 08:16 Heparin Sodium/ Sodium Chloride (HEPARIN for ARTERIAL LINE FLUSH) 1,000 unit 1X ONCE IART 06/07/21 11:00 06/07/21 11:10 DC 06/07/21 11:00 Midazolam HCl (Versed) 2 mg 1X ONCE IV 06/07/21 11:00 06/07/21 11:11 DC 06/07/21 11:47 Fentanyl Citrate (Fentanyl 2ml Vial) 100 mcg 1X ONCE IV 06/07/21 11:00 06/07/21 11:10 DC 06/07/21 11:47 Lidocaine HCl (Lidocaine 1% 20ml Vial) 20 ml 1X ONCE INJ 06/07/21 11:00 06/07/21 11:10 DC 06/07/21 11:51 Furosemide (Lasix) 40 mg 1X ONCE IVP 06/07/21 14:00 06/07/21 14:01 DC 06/07/21 15:47 Docusate Sodium (Colace) 100 mg BID PO 06/07/21 21:00 06/08/21 08:15 Magnesium Citrate (Citroma) 296 ml 1X ONCE PO 06/08/21 08:45 06/08/21 08:46 DC 06/08/21 09:11 Justifications for Admission Other Justification AC GARY III DO Jun 08, 2021 09:22
[2021-06-08] MEDS: VANCOMYCIN PER PHARMACY MC PRN ×2 (10:19→15:53)
[2021-06-08 10:40] VITALS: BP 173/81
--- NOTE | 2021-06-08 11:15 | PDOC ---
BRIAN CORDERO [employer] 06/08/21 1114: CARDIO Progress Notes Date and Time Date of Service 06/08/21 Time of Evaluation 1115 Subjective Subjective: Other (c/o rectum hurting, still short of breath ) Vitals Vitals Vital Signs Date Time Temp Pulse Resp B/P (MAP) Pulse Ox O2 Delivery O2 Flow Rate FiO2 06/08/21 10:40 97.0 86 22 173/81 (111) 97 NonRebreather Mask 10.0 97.0 Weight Weight [ ] Input and Output Intake and Output Intake and Output 06/08/21 07:00 Intake Total 1100 ml Output Total 3650 ml Balance -2550 ml Intake Oral 1100 ml Output Urine Total 3650 ml Laboratory Labs Laboratory Tests Test 06/07/21 13:00 06/07/21 16:38 06/07/21 19:44 06/08/21 08:19 Glucose (Fingerstick) 131 mg/dL (70-99) 167 mg/dL (70-99) 136 mg/dL (70-99) 176 mg/dL (70-99) Microbiology Micro Microbiology 06/03/21 Urine Culture - Final, Complete Klebsiella Pneumoniae 06/03/21 Blood Culture - Preliminary, Resulted NO GROWTH AFTER 4 DAYS Physical Exam HEENT: Neck Supple W Full Motion Chest: Symmetric LUNGS: Other (diminished bases) Heart: irregularly irregular (AFIB) Abdomen: Soft N/T, Other (obese) Extremities: Other (1-2+ bilateral LE edema ) Neurology: alert, oriented, follow commands Assessment Assessment 1. Syncopal episode; ? vasovagal episode while on toilet. Cannot rule out contributing bradyarrhythmia. CT head and neck without acute findings. 2. Chronic AFIB; with intermittent slow VR. Tele noted with bradycardia with HR lowest in the upper 30's. improved. 3. Mild acute on chronic diastolic CHF; Echo 10/26 with preserved LV systolic function. RHC with elevated filling pressures and moderate pulmonary pretension, mean PA 42 mmHg 4. CAD ; s/p stents x2 approx 4 yrs ago. Clinically stable. CP free 5. PAD s/p atherectomy/[employer] FAMILY [employer]IVING PROFESSOR to left SFA 2019 6. Hypertension; controlled 7. Hyperlipidemia 8. Diabetes, II 9. LARRY on CKD; Cr ^ 1.8 10. Hypothyroidism 11. UTI 12. Anemia, thrombocytopenia Recommendations Repeat labs Additional diuresis if renal function stable Secondary prevention Ongoing support Justicifation of Admission Dx: Justifications for Admission: Justification of Admission Dx: Yes JUVE QUIROZ MD 06/08/21 1659: CARDIO Progress Notes Plan Plan The patient was seen and interviewed as well as examined at the bedside. The chart was reviewed. The case was discussed. Agree with the plan of care. BRIAN CORDERO APRN Jun 08, 2021 11:14 JUVE QUIROZ MD Jun 08, 2021 16:59
--- NOTE | 2021-06-08 11:45 | PDOC ---
PULMONARY PROGRESS NOTES DATE: 06/08/21 TIME: 11:34 Subjective Patient remains on high flow oxygen. Vitals Vital Signs Date Time Temp Pulse Resp B/P (MAP) Pulse Ox O2 Delivery O2 Flow Rate FiO2 06/08/21 10:40 97.0 86 22 173/81 (111) 97 NonRebreather Mask 10.0 97.0 ROS: No Nausea, No Chest Pain, No Increase Cough General: Alert, No acute distress Lungs: Clear Cardiovascular: S1, S2 Abdomen: Soft, Non-tender Neuro Exam: Alert Extremities: Other (2+ non-pitting) Skin: Warm, No Rashes Labs Laboratory Tests Test 06/06/21 11:43 06/06/21 16:43 06/06/21 20:32 06/07/21 08:12 Glucose (Fingerstick) 169 mg/dL (70-99) 127 mg/dL (70-99) 142 mg/dL (70-99) 150 mg/dL (70-99) Test 06/07/21 13:00 06/07/21 16:38 06/07/21 19:44 06/08/21 08:19 Glucose (Fingerstick) 131 mg/dL (70-99) 167 mg/dL (70-99) 136 mg/dL (70-99) 176 mg/dL (70-99) Laboratory Tests Test 06/07/21 13:00 06/07/21 16:38 06/07/21 19:44 06/08/21 08:19 Glucose (Fingerstick) 131 mg/dL (70-99) 167 mg/dL (70-99) 136 mg/dL (70-99) 176 mg/dL (70-99) Medications Active Scripts Medications Dose Route/Sig Max Daily Dose Days Date Category Dose Instructions Bumetanide 1 Mg Tablet 1 Mg PO BID 06/04/21 Reported Carvedilol 25 Mg Tablet 25 Mg PO BIDWMEALS 06/04/21 Reported Eliquis (Apixaban) 2.5 Mg Tablet 2.5 Mg PO BID 06/04/21 Reported Restasis (Cyclosporine) 1 Each Droperette 1 Drop EACHEYE BID 01/09/18 Reported Tylenol (Acetaminophen) 325 Mg Tablet 650 Mg PO QHS PRN 01/09/18 Reported Magnesium Oxide 400 Mg Tablet 400 Mg PO DAILY 01/09/18 Reported Protonix (Pantoprazole Sodium) 20 Mg Tablet.dr 40 Mg PO DAILY 01/09/18 Reported Novolog (Insulin Aspart) 100 Unit/1 Ml Cartridge 16 Unit SQ TIDAC 01/09/18 Reported Lantus Solostar (Insulin Glargine,Hum.rec.anlog) 100 Unit/1 Ml Insuln.pen 50 Unit SQ QHS 01/09/18 Reported Novolog Flexpen (Insulin Aspart) 100 Unit/1 Ml Insuln.pen 0 SQ TIDWMEALS PRN 02/19/16 Reported Celebrex (Celecoxib) 100 Mg Capsule 1 Cap PO PRN BID 02/19/16 Reported Nitrostat (Nitroglycerin) 0.4 Mg Tab.subl 1 Tab SL UD PRN 02/16/16 Reported Vitamin D (Cholecalciferol (Vitamin D3)) 1,000 Unit Capsule 1 Cap PO DAILY 02/16/16 Reported Losartan Potassium 50 Mg Tablet 50 Mg PO DAILY 02/16/16 Reported Synthroid (Levothyroxine Sodium) 88 Mcg Tablet 1 Tab PO DAILY 02/16/16 Reported Gave this morning Take tomorrow Pravastatin Sodium 20 Mg Tablet 1 Tab PO DAILY 02/16/16 Reported Impression . 1. Acute on chronic respiratory failure secondary to acute diastolic congestive heart failure,/acute cor pulmonale/ rule out pneumonia. She had a syncopal episode ? aspiration pneumonitis. 2. Abnormal chest x-ray. 3. Acute diastolic congestive heart failure. 4. Atrial fibrillation. 5. Hypertension. 6. Obstructive sleep apnea-hypopnea syndrome, obesity hypoventilation syndrome. 7. Gastroesophageal reflux disease. 8. Acute kidney injury. Plan . Updated 06/08 Continue O2 titration to maintain O2 sat 90% Will benefit from extra diuresis. We will obtain chest x-ray. Labs reviewed; Bun/Creatinine stable Continue Zosyn, Vanco Encourage pulmonary hygiene; IS hourly while awake Eliquis for anticoagulation Protonix for Prophylaxis Continue Arredondo for accurate I&O; Currently on Bumex Updated 06/06 Discussed with at the bedside Continue O2 titration to maintain O2 sat 90% Currently 5L NC at 98% Labs reviewed; Bun/Creatinine stable Continue Zosyn, Vanco Encourage pulmonary hygiene; IS hourly while awake Eliquis for anticoagulation Protonix for Prophylaxis Continue Arredondo for accurate I&O; Currently on Bumex PLAN AND RECOMMENDATIONS: 1. Titrate FiO2 to keep O2 saturation 90%. Avoid over oxygenation as she is a CO2 retainer. 2. I agree with Bumex to keep intake less than output. Monitor potassium and creatinine. 3. Cardiology is consulted, need to obtain records from [facility]. 4. Continue antibiotics for now. We will do MRSA screen. 5. Incentive spirometer to use multiple times an hour. 6. Lose weight and exercise. 7. Obstructive sleep apnea-hypopnea syndrome. The importance of treatment was discussed with the patient. I do recommend she continue using CPAP during sleep. 8. She is on Eliquis. 9. Protonix for stress ulcer prophylaxis. 10. The findings and recommendations were discussed with the patient and RN. SHLOMO RODRIGUEZ MD Jun 08, 2021 11:45
--- NOTE | 2021-06-08 12:00 | PDOC ---
PROGRESS NOTES Date of Service DATE: 06/08/21 TIME: 11:57 Subjective Subjective She continues with right knee joint pain and [employer] could not get her a brace that fits her size. Objective Objective Vital Signs Date Time Temp Pulse Resp B/P (MAP) Pulse Ox O2 Delivery O2 Flow Rate FiO2 06/08/21 10:40 97.0 86 22 173/81 (111) 97 NonRebreather Mask 10.0 97.0 Intake and Output 06/08/21 07:00 Intake Total 1100 ml Output Total 3650 ml Balance -2550 ml Intake Oral 1100 ml Output Urine Total 3650 ml Physical Exam Physical Exam She is alert,supine in bed and still protecting her right knee and she requires assistance with bed mobility and transfers. Assessment Assessment Problems Medical Problems: (1) Chronic respiratory failure with hypoxia, on home O2 therapy Status: Acute (2) Diabetes mellitus Status: Acute (3) Failure to thrive Status: Acute (4) Generalized weakness Status: Acute (5) Healthcare-associated pneumonia Status: Acute (6) Syncope Status: Acute (7) Urinary tract infection Status: Acute Plan Plan of Care To continue physical and occupational therapy follow up and to SNF when medically stable. Comment Review of Relevant I have reviewed the following items ashwini (where applicable) has been applied. Labs Laboratory Tests Test 06/06/21 16:43 06/06/21 20:32 06/07/21 08:12 06/07/21 13:00 Glucose (Fingerstick) 127 mg/dL (70-99) 142 mg/dL (70-99) 150 mg/dL (70-99) 131 mg/dL (70-99) Test 06/07/21 16:38 06/07/21 19:44 06/08/21 08:19 06/08/21 11:50 Glucose (Fingerstick) 167 mg/dL (70-99) 136 mg/dL (70-99) 176 mg/dL (70-99) 108 mg/dL (70-99) Laboratory Tests Test 06/07/21 13:00 06/07/21 16:38 06/07/21 19:44 06/08/21 08:19 Glucose (Fingerstick) 131 mg/dL (70-99) 167 mg/dL (70-99) 136 mg/dL (70-99) 176 mg/dL (70-99) Test 06/08/21 11:50 Glucose (Fingerstick) 108 mg/dL (70-99) Microbiology 06/03/21 Urine Culture - Final, Complete Klebsiella Pneumoniae 06/03/21 Blood Culture - Preliminary, Resulted NO GROWTH AFTER 4 DAYS Medications Current Medications Vancomycin HCl 1.5 gm/Sodium Chloride 500 ml @ 250 mls/hr 1X ONCE IV ; Start 06/03/21 at 23:00; Stop 06/04/21 at 00:59; Status UNV Piperacillin Sod/ Tazobactam Sod 4.5 gm/Sodium Chloride 100 ml @ 200 mls/hr 1X ONCE IV Last administered on 06/04/21at 00:02; Start 06/03/21 at 23:30; Stop 06/03/21 at 23:59; Status DC Furosemide (Lasix) 20 mg 1X ONCE IVP Last administered on 06/04/21at 00:00; Start 06/03/21 at 23:30; Stop 06/03/21 at 23:31; Status DC Vancomycin HCl (Vanco Per Pharmacy) 1 each PRN DAILY PRN MC SEE COMMENTS Last administered on 06/08/21at 10:19; Start 06/03/21 at 23:45 Vancomycin HCl 2 gm/Sodium Chloride 500 ml @ 250 mls/hr 1X ONCE IV Last administered on 06/04/21at 00:16; Start 06/04/21 at 00:00; Stop 06/04/21 at 01:59; Status DC Acetaminophen/ Hydrocodone Bitart (Lortab 5/325) 1 tab 1X ONCE PO Last administered on 06/04/21at 00:14; Start 06/04/21 at 00:30; Stop 06/04/21 at 00:31; Status DC Ondansetron HCl (Zofran) 4 mg PRN Q8HRS PRN IVP NAUSEA/VOMITING 1ST CHOICE; Start 06/04/21 at 01:45; Stop 06/05/21 at 01:44; Status DC Acetaminophen (Tylenol) 650 mg PRN Q6HRS PRN PO MILD PAIN / TEMP > 100.3'F; Start 06/04/21 at 01:45 Diphenhydramine HCl (Benadryl) 25 mg PRN Q6HRS PRN PO insomnia or itching Last administered on 06/05/21at 21:16; Start 06/04/21 at 01:45 Fentanyl Citrate (Fentanyl 2ml Vial) 50 mcg PRN Q4HRS PRN IVP SEVERE PAIN 7-10 Last administered on 06/04/21at 02:18; Start 06/04/21 at 01:45; Stop 06/04/21 at 04:58; Status DC Vancomycin HCl 2 gm/Sodium Chloride 500 ml @ 250 mls/hr Q24H IV Last administered on 06/08/21at 04:33; Start 06/04/21 at 23:00 Vancomycin HCl (Vancomycin Trough Level) 1 each 1X ONCE MC Last administered on 06/05/21at 22:30; Start 06/05/21 at 22:30; Stop 06/05/21 at 22:31; Status DC Fentanyl Citrate (Fentanyl 2ml Vial) 50 mcg PRN Q2HR PRN IVP SEVERE PAIN 7-10 Last administered on 06/04/21at 08:49; Start 06/04/21 at 05:00 Acetaminophen (Tylenol) 650 mg PRN QHS PRN PO MILD PAIN 1-3; Start 06/04/21 at 05:00 Apixaban (Eliquis) 2.5 mg BID PO Last administered on 06/06/21at 08:05; Start 06/04/21 at 09:00; Stop 06/06/21 at 15:58; Status DC Bumetanide (Bumex) 1 mg BID94 PO Last administered on 06/06/21at 08:05; Start 06/04/21 at 09:00; Stop 06/06/21 at 14:53; Status DC Celecoxib (CeleBREX) 100 mg PRN BID PRN PO INFLAMMATION Last administered on 06/07/21at 21:42; Start 06/04/21 at 05:00 Cyclosporine (Restasis) 1 drop BID OU Last administered on 06/08/21at 08:16; Start 06/04/21 at 09:00 Levothyroxine Sodium (Synthroid) 88 mcg DAILY06 PO Last administered on 06/08/21at 06:09; Start 06/04/21 at 06:00 Losartan Potassium (Cozaar) 50 mg DAILY PO Last administered on 06/06/21at 08:04; Start 06/04/21 at 09:00; Stop 06/06/21 at 14:53; Status DC Magnesium Oxide (Magnesium Oxide) 400 mg DAILY PO Last administered on 06/08/21 08:13; Start 06/04/21 at 09:00 Nitroglycerin (Nitrostat) 0.4 mg PRN Q5MIN PRN SL CHEST PAIN Last administered on 06/07/21 11:26; Start 06/04/21 at 05:00 Carvedilol (Coreg) 25 mg BIDWMEALS PO Last administered on 06/06/21 08:06; Start 06/04/21 at 08:00; Stop 06/06/21 at 14:53; Status DC Vitamin D (Vitamin D3) 1,000 unit DAILY PO Last administered on 06/08/21 08:33; Start 06/04/21 at 09:00 Insulin Human Lispro (HumaLOG) 16 units TIDWMEALS SQ Last administered on 08:20; Start 06/04/21 at 08:00 Insulin Glargine (Lantus Syringe) 50 unit QHS SQ Last administered on 06/07/21 21:47; Start 06/04/21 at 21:00 Pantoprazole Sodium (Protonix) 40 mg DAILYAC PO Last administered on 06/08/21 08:15; Start 06/04/21 at 07:30 Atorvastatin Calcium (Lipitor) 5 mg DAILY PO Last administered on 06/07/21 21:41; Start 06/04/21 at 09:00 Dextrose (Dextrose 50%-Water Syringe) 12.5 gm PRN Q15MIN PRN IV SEE COMMENTS; Start 06/04/21 at 05:30 Dextrose (Iv Dextrose 5%) 250 ml PRN Q15MIN PRN IV SEE COMMENTS; Start 06/04/21 at 05:30 Info (Anti-Coagulation Monitoring By Pharmacy) 1 each PRN DAILY PRN MC PER PROTOCOL Last administered on 06/04/21at 05:33; Start 06/04/21 at 05:30 Vitamin B Complex (Folbic Tablet) 1 tab DAILY PO Last administered on 06/08/21 08:15; Start 06/04/21 at 11:00 Lidocaine (Lidoderm) 1 patch DAILY TD Last administered on 06/08/21 08:16; Start 06/04/21 at 11:30 Miscellaneous (Lidoderm Patch Removal) 1 ea QHS MC ; Start 06/04/21 at 21:00; Stop 06/04/21 at 10:43; Status DC Diclofenac Sodium (Voltaren) 1 laura BID TP Last administered on 06/08/21 08:17; Start 06/04/21 at 11:30 Lidocaine (Lidoderm) 1 patch DAILY TD ; Start 06/04/21 at 11:00; Status Cancel Miscellaneous (Lidoderm Patch Removal) 1 ea QHS MC Last administered on 06/07/21at 21:00; Start 06/04/21 at 21:00 Acetaminophen/ Hydrocodone Bitart (Lortab 5/325) 1 tab PRN Q4HRS PRN PO MODERATE PAIN Last administered on 06/07/21 17:43; Start 06/04/21 at 10:45 Acetaminophen/ Hydrocodone Bitart (Lortab 5/325) 2 tab PRN Q4HRS PRN PO SEVERE PAIN Last administered on 06/08/21 08:15; Start 06/04/21 at 10:45 Nystatin (Nystop) 1 laura BID TP Last administered on 06/08/21 08:17; Start 06/04/21 at 14:00 Piperacillin Sod/ Tazobactam Sod (Zosyn Per Pharmacy) 1 each PRN DAILY PRN MC S EE COMMENTS; Start 06/04/21 at 14:15 Piperacillin Sod/ Tazobactam Sod 4.5 gm/Dextrose 100 ml @ 200 mls/hr Q6HRS IV Last administered on 06/05/21at 05:38; Start 06/04/21 at 16:00; Stop 06/05/21 at 07:44; Status DC Lactobacillus Rhamnosus (Culturelle) 1 cap BID PO Last administered on 06/08/21 08:15; Start 06/04/21 at 21:00 Sodium Chloride (Saline Mist Nasal) 1 laura PRN Q1HR PRN NS NASAL CONGESTION Last administered on 06/05/21 06:33; Start 06/04/21 at 19:45 Piperacillin Sod/ Tazobactam Sod 3.375 gm/Sodium Chloride 50 ml @ 100 mls/hr Q6HRS IV Last administered on 06/08/21 11:20; Start 06/05/21 at 12:00 Docusate Sodium (Colace) 100 mg DAILY PO Last administered on 06/07/21at 12:43; Start 06/06/21 at 13:15; Stop 06/07/21 at 16:33; Status DC Polyethylene Glycol (miraLAX PACKET) 17 gm DAILY PO Last administered on 06/08/21at 08:15; Start 06/06/21 at 13:15 Carvedilol (Coreg) 12.5 mg BIDWMEALS PO Last administered on 06/08/21at 08:36; Start 06/06/21 at 17:00 Apixaban (Eliquis) 2.5 mg BID PO Last administered on 06/08/21at 08:16; Start 06/07/21 at 21:00 Heparin Sodium/ Sodium Chloride 500 ml @ As Directed STK-MED ONCE .ROUTE ; Start 06/07/21 at 10:42; Stop 06/07/21 at 10:42; Status DC Fentanyl Citrate (Fentanyl 2ml Vial) 100 mcg STK-MED ONCE .ROUTE ; Start 06/07/21 at 10:50; Stop 06/07/21 at 10:50; Status DC Midazolam HCl (Versed) 2 mg STK-MED ONCE .ROUTE ; Start 06/07/21 at 10:50; Stop 06/07/21 at 10:50; Status DC Heparin Sodium/ Sodium Chloride (HEPARIN for ARTERIAL LINE FLUSH) 1,000 unit 1X ONCE IART Last administered on 06/07/21at 11:00; Start 06/07/21 at 11:00; Stop 06/07/21 at 11:10; Status DC Midazolam HCl (Versed) 2 mg 1X ONCE IV Last administered on 06/07/21at 11:47; Start 06/07/21 at 11:00; Stop 06/07/21 at 11:11; Status DC Fentanyl Citrate (Fentanyl 2ml Vial) 100 mcg 1X ONCE IV Last administered on 06/07/21at 11:47; Start 06/07/21 at 11:00; Stop 06/07/21 at 11:10; Status DC Lidocaine HCl (Lidocaine 1% 20ml Vial) 20 ml 1X ONCE INJ Last administered on 06/07/21at 11:51; Start 06/07/21 at 11:00; Stop 06/07/21 at 11:10; Status DC Nitroglycerin (Nitrostat) 0.4 mg STK-MED ONCE SL ; Start 06/07/21 at 11:25; Stop 06/07/21 at 11:25; Status DC Albuterol Sulfate (Ventolin Neb Soln) 2.5 mg 1X ONCE NEB ; Start 06/07/21 at 11:30; Stop 06/07/21 at 11:31; Status DC Albuterol/ Ipratropium (Duoneb) 3 ml STK-MED ONCE .ROUTE ; Start 06/07/21 at 11:47; Stop 06/07/21 at 11:47; Status DC Furosemide (Lasix) 40 mg 1X ONCE IVP Last administered on 06/07/21at 15:47; Start 06/07/21 at 14:00; Stop 06/07/21 at 14:01; Status DC Docusate Sodium (Colace) 100 mg BID PO Last administered on 06/08/21at 08:15; Start 06/07/21 at 21:00 Magnesium Citrate (Citroma) 296 ml 1X ONCE PO Last administered on 06/08/21at 09:11; Start 06/08/21 at 08:45; Stop 06/08/21 at 08:46; Status DC Furosemide (Lasix) 40 mg 1X ONCE IVP ; Start 06/08/21 at 13:00; Stop 06/08/21 at 13:01 Active Scripts Active Reported Bumetanide 1 Mg Tablet 1 Mg PO BID Carvedilol 25 Mg Tablet 25 Mg PO BIDWMEALS Eliquis (Apixaban) 2.5 Mg Tablet 2.5 Mg PO BID Restasis (Cyclosporine) 1 Each Droperette 1 Drop EACHEYE BID Tylenol (Acetaminophen) 325 Mg Tablet 650 Mg PO QHS PRN Magnesium Oxide 400 Mg Tablet 400 Mg PO DAILY Protonix (Pantoprazole Sodium) 20 Mg Tablet.dr 40 Mg PO DAILY Novolog (Insulin Aspart) 100 Unit/1 Ml Cartridge 16 Unit SQ TIDAC Lantus Solostar (Insulin Glargine,Hum.rec.anlog) 100 Unit/1 Ml Insuln.pen 50 Unit SQ QHS Novolog Flexpen (Insulin Aspart) 100 Unit/1 Ml Insuln.pen 0 SQ TIDWMEALS PRN Celebrex (Celecoxib) 100 Mg Capsule 1 Cap PO PRN BID Nitrostat (Nitroglycerin) 0.4 Mg Tab.subl 1 Tab SL UD PRN Vitamin D (Cholecalciferol (Vitamin D3)) 1,000 Unit Capsule 1 Cap PO DAILY Losartan Potassium 50 Mg Tablet 50 Mg PO DAILY Synthroid (Levothyroxine Sodium) 88 Mcg Tablet 1 Tab PO DAILY Gave this morning Take tomorrow Pravastatin Sodium 20 Mg Tablet 1 Tab PO DAILY Vitals/I & O Vital Sign - Last 24 Hours 06/07/21 06/07/21 06/07/21 06/07/21 12:15 12:38 12:44 12:53 Pulse 72 89 87 Resp 22 B/P (MAP) 163/74 (103) 137/64 (88) Pulse Ox 100 96 97 93 O2 Delivery BiPAP/CPAP BiPAP/CPAP 06/07/21 06/07/21 06/07/21 06/07/21 13:08 13:23 13:53 14:23 Pulse 75 92 77 88 B/P (MAP) 150/65 (93) 141/57 (85) 121/56 (77) 156/67 (96) Pulse Ox 94 94 91 92 06/07/21 06/07/21 06/07/21 06/07/21 14:52 14:53 15:23 16:23 Temp 97.4 97.4 Pulse 87 84 94 83 Resp 21 B/P (MAP) 156/67 (96) 183/72 (109) 183/79 (113) 190/70 (110) Pulse Ox 93 92 90 91 O2 Delivery Nasal Cannula O2 Flow Rate 7.0 06/07/21 06/07/21 06/07/21 06/07/21 17:43 17:45 18:13 19:00 Temp 98.5 98.5 Pulse 76 73 Resp 20 B/P (MAP) 168/73 160/109 (126) Pulse Ox 93 O2 Delivery Nasal Cannula Nasal Cannula Nasal Cannula O2 Flow Rate 5.0 5.0 6.0 06/07/21 06/07/21 06/07/21 06/07/21 20:00 21:42 22:12 22:52 Temp 98.6 98.6 Pulse 98 Resp 20 B/P (MAP) 191/97 (128) Pulse Ox 93 90 90 O2 Delivery Nasal Cannula Nasal Cannula Nasal Cannula Nasal Cannula O2 Flow Rate 5.0 5.0 5.0 6.0 06/08/21 06/08/21 06/08/21 06/08/21 02:23 02:42 02:53 07:00 Temp 97.5 97.4 97.5 97.4 Pulse 94 87 Resp B/P (MAP) 229/96 (140) 128/83 (98) Pulse Ox 90 90 90 86 O2 Delivery Nasal Cannula Nasal Cannula Nasal Cannula Nasal Cannula O2 Flow Rate 5.0 10.0 10.0 10.0 06/08/21 06/08/21 06/08/21 06/08/21 08:00 08:15 08:36 08:45 Pulse 94 B/P (MAP) 128/83 Pulse Ox 90 90 O2 Delivery Nasal Cannula Nasal Cannula Nasal Cannula O2 Flow Rate 10.0 10.0 10.0 06/08/21 10:40 Temp 97.0 97.0 Pulse 86 Resp 22 B/P (MAP) 173/81 (111) Pulse Ox 97 O2 Delivery NonRebreather Mask O2 Flow Rate 10.0 Intake and Output 06/07/21 06/07/21 06/08/21 15:00 23:00 07:00 Intake Total 100 ml 1000 ml Output Total 400 ml 1000 ml 2250 ml Balance -400 ml -900 ml -1250 ml Justifications for Admission Other Justification MELANIE ABDULLAHI MD Jun 08, 2021 12:00
--- NOTE | 2021-06-08 12:03 | PN ---
DATE: 06/07/2021 SUBJECTIVE: The patient remains on high-flow oxygen. Appears weak. PHYSICAL EXAMINATION: VITAL SIGNS: Reviewed. Pulse ox was 90-92%. NECK: Supple. LUNGS: With diminished breath sounds. HEART: With a regular rate. ABDOMEN: Soft, obese. EXTREMITIES: Bilateral 2+ pitting edema. LABORATORY DATA: Reviewed. BUN 29, creatinine 1.7. IMPRESSION: 1. Acute on chronic respiratory failure secondary to acute diastolic congestive heart failure and component of acute cor pulmonale. Cannot rule out pneumonia. 2. Abnormal chest x-ray more suggestive of heart failure. 3. Atrial fibrillation. 4. Hypertension. 5. Obstructive sleep apnea/Obesity hypoventilation syndrome. 6. Acute kidney injury on chronic kidney disease. RECOMMENDATION: 1. Discussed with the patient's , we will continue present oxygen and wean to keep saturation 92% and above. 2. The patient would benefit from repeat chest x-ray. 3. Extra diuresis. 4. Continue antibiotics. 5. Monitor renal function. 6. Pulmonary status is still marginal. BIBI DR: Manolo TID: [id number]
[2021-06-08] MEDS ORDERED: FUROSEMIDE 40 MG/4 ML VIAL. IVP ONE (13:00)
[2021-06-08 15:00] VITALS: BP 131/63
--- NOTE | 2021-06-08 15:48 | RAD ---
XR CHEST 1V History: Congestive heart failure Comparison: 06/03/2021 Technique: Portable AP radiograph of the chest. Findings: The lungs are adequately inflated. There are persistent bilateral interstitial and airspace opacities with suspected small bilateral pleural effusions. Airspace opacities appear now less focal. No pneum othorax. Stable enlarged cardiac silhouette and indistinct pulmonary vasculature. No acute osseous ab normality. Soft tissues are unremarkable. Impression: 1. Persistent bilateral airspace and interstitial opacities with small pleural effusions, slightly l ess confluent than comparison. Findings most likely represent pulmonary edema and small effusions wit h bibasilar atelectasis. Superimposed infection cannot be excluded. Electronically signed by: Jerson Guallpa MD (06/08/2021 3:45 PM) [id number]
[2021-06-08 15:59] LABS: CALCIUM 8.8 mg/dL (8.5-10.1); CREATININE 1.4 mg/dL (0.6-1.0); MAGNESIUM 2.2 mg/dL (1.8-2.4); POTASSIUM 4.2 mmol/L (3.5-5.1)
[2021-06-08 19:09] VITALS: BP 132/63
[2021-06-08] MEDS: PATCH REMOVAL. MC SCH (21:00)
[2021-06-08 22:21] VITALS: BP 151/67
[2021-06-08] MEDS: CELECOXIB 100 MG CAPSULE. PO PRN (22:36)
[2021-06-08] MEDS: INSULIN GLARGINE SYRINGE. SQ SCH (22:37)
[2021-06-08 23:18] LABS: VANC TR 20.4 mcg/mL (10.0-20.0)
[2021-06-09] MEDS: PIPERACILLIN/TAZOBACTAM 3.375 GM in IV NORMAL SALINE 50ML 50 ML IV SCH ×4 (01:02→16:46)
[2021-06-09 02:15] VITALS: BP 144/73
[2021-06-09] MEDS: VANCOMYCIN 2 GM in IV NORMAL SALINE 500ML BAG 500 ML IV SCH (02:15)
[2021-06-09] MEDS: VANCOMYCIN PER PHARMACY MC PRN (02:21)
--- NOTE | 2021-06-09 02:22 | NUR ---
Pharmacy Vancomycin Dosing Note S:Consulted to monitor and dose vancomycin started 06/04/21. O:MARIA ELENA HOFFMANN is a 81 year old F with Sepsis HCAP UTI . Height: 5 feet, 7 inches Weight: 138.9 kg Bennett Body Weight: 61.60 Adjusted Body Weight: 92.52 Dosing Weight: Actual Other Antibiotics: ZOSYN 4.5GM 1X ER ZOSYN 3.375GM Q6HRS LABS: Last BUN: 22 Last Creatinine: 1.4 Creatinine Clearance: 46 mL/min Last WBC: 5.5 Last Procalcitonin: Tmax (past 24 hours): 98.5 Microbiology: 06/03 urine kleb pneumo Blood: NGTD I/O: 1150/3650 Drug Levels: Last Trough level: 20.4 (18 hour trough, true trough ~16) on 06/08/21 at 2220 Last dose given 06/08/21 at 0433 Vancomycin Dosing: Loading Dose: 2000 mg x1 Dosing Weight: Actual Target Trough: 15-20 A: Based on: THERAPEUTIC CORRECTED TROUGH, P: 1. CONTINUE Vancomycin 2000 mg IV q24h 2. Follow up Trough level NEEDED EVERY 5 TO 7 DAYS 3. Pharmacy will continue to monitor, follow and adjust therapy as needed. LEE ANN RM [facility], 06/09/21 [id number]
[2021-06-09] MEDS: HYDROcodone/APAP 5/325MG 1 TAB TABLET PO PRN ×4 (03:40→22:00)
[2021-06-09 05:18] LABS: CREATININE 1.2 mg/dL (0.6-1.0)
[2021-06-09] MEDS: LEVOTHYROXINE 88 MCG TABLET PO SCH (06:09)
[2021-06-09 07:00] VITALS: BP 180/80
[2021-06-09] MEDS: INSULIN LISPRO 300 UNITS/3 ML VIAL. SQ SCH ×3 (08:00→16:45)
[2021-06-09] MEDS: DOCUSATE SODIUM 100 MG CAPSULE. PO SCH ×2 (09:00→20:53)
[2021-06-09] MEDS: POLYETHYLENE GLYCOL 3350 17 GM PACKET. PO SCH (09:00)
[2021-06-09] MEDS: VITAMIN B12,B9,B6 COMPLEX 1 TABLET. PO SCH (09:00)
[2021-06-09] MEDS: APIXABAN 2.5 MG TABLET. PO SCH ×2 (09:05→21:58)
[2021-06-09] MEDS: ATORVASTATIN CALCIUM 10 MG TABLET. PO SCH (09:05)
[2021-06-09] MEDS: PANTOPRAZOLE 40 MG TABLET.DR. PO SCH (09:05)
[2021-06-09] MEDS: LACTOBACILLUS RHAMNOSUS GG 1 CAPSULE. PO SCH ×2 (09:05→21:59)
[2021-06-09] MEDS: CHOLECALCIFEROL (VITAMIN D3) 1,000 UNIT TABLET PO SCH (09:06)
[2021-06-09] MEDS: cycloSPORINE 0.05% OPHTH DROPERETTE. OU SCH ×2 (09:06→21:59)
[2021-06-09] MEDS: MAGNESIUM OXIDE 400 MG TABLET PO SCH (09:06)
[2021-06-09] MEDS: CARVEDILOL 12.5 MG TABLET. PO SCH ×2 (09:06→16:45)
[2021-06-09] MEDS: DICLOFENAC SODIUM 1% TOPICAL GEL 100GM TUBE. TP SCH ×2 (09:07→21:00)
[2021-06-09] MEDS: NYSTATIN TOPICAL POWDER 15GM BOTTLE. TP SCH ×2 (09:07→21:00)
[2021-06-09] MEDS: LIDOCAINE (700MG/PATCH) PATCH. TD SCH (09:08)
[2021-06-09] MEDS: SODIUM CHLORIDE 0.65% NASAL SPRAY 45ML BOTTLE. NS PRN (09:11)
--- NOTE | 2021-06-09 09:38 | PDOC ---
PROGRESS NOTES Date of Service DATE: 06/09/21 TIME: 09:37 Subjective Subjective No new complaints. Objective Objective Vital Signs Date Time Temp Pulse Resp B/P (MAP) Pulse Ox O2 Delivery O2 Flow Rate FiO2 06/09/21 09:10 97 Nasal Cannula 5.0 06/09/21 09:06 90 175/77 06/09/21 02:15 97.4 20 97.4 Intake and Output 06/09/21 07:00 Intake Total 1450 ml Output Total 2550 ml Balance -1100 ml Intake Oral 1400 ml IV Total 50 ml Output Urine Total 2550 ml # Bowel Movements 4 Physical Exam Physical Exam Nursing reports of her doing better and getting up to commode in the last 2 days. Assessment Assessment Problems Medical Problems: (1) Chronic respiratory failure with hypoxia, on home O2 therapy Status: Acute (2) Diabetes mellitus Status: Acute (3) Failure to thrive Status: Acute (4) Generalized weakness Status: Acute (5) Healthcare-associated pneumonia Status: Acute (6) Syncope Status: Acute (7) Urinary tract infection Status: Acute Plan Plan of Care To SNF when medically stable. Comment Review of Relevant I have reviewed the following items ashwini (where applicable) has been applied. Labs Laboratory Tests Test 06/07/21 13:00 06/07/21 16:38 06/07/21 19:44 06/08/21 08:19 Glucose (Fingerstick) 131 mg/dL (70-99) 167 mg/dL (70-99) 136 mg/dL (70-99) 176 mg/dL (70-99) Test 06/08/21 11:50 06/08/21 15:40 06/08/21 16:52 06/08/21 20:10 Glucose (Fingerstick) 108 mg/dL (70-99) 108 mg/dL (70-99) 102 mg/dL (70-99) Sodium Level 136 mmol/L (136-145) Potassium Level 4.2 mmol/L (3.5-5.1) Chloride Level 98 mmol/L (98-107) Carbon Dioxide Level 29 mmol/L (21-32) Anion Gap 9 (6-14) Blood Urea Nitrogen 22 mg/dL (7-20) Creatinine 1.4 mg/dL (0.6-1.0) Estimated GFR (Cockcroft-Gault) 36.0 Glucose Level 112 mg/dL (70-99) Calcium Level 8.8 mg/dL (8.5-10.1) Magnesium Level 2.2 mg/dL (1.8-2.4) Test 06/08/21 22:20 06/09/21 04:10 06/09/21 07:35 Vancomycin Level Trough 20.4 mcg/mL (10.0-20.0) Vancomycin Last Dose Date Vancomycin Last Dose Time Creatinine 1.2 mg/dL (0.6-1.0) Estimated GFR (Cockcroft-Gault) 43.0 Glucose (Fingerstick) 110 mg/dL (70-99) Laboratory Tests Test 06/08/21 11:50 06/08/21 15:40 06/08/21 16:52 06/08/21 20:10 Glucose (Fingerstick) 108 mg/dL (70-99) 108 mg/dL (70-99) 102 mg/dL (70-99) Sodium Level 136 mmol/L (136-145) Potassium Level 4.2 mmol/L (3.5-5.1) Chloride Level 98 mmol/L (98-107) Carbon Dioxide Level 29 mmol/L (21-32) Anion Gap 9 (6-14) Blood Urea Nitrogen 22 mg/dL (7-20) Creatinine 1.4 mg/dL (0.6-1.0) Estimated GFR (Cockcroft-Gault) 36.0 Glucose Level 112 mg/dL (70-99) Calcium Level 8.8 mg/dL (8.5-10.1) Magnesium Level 2.2 mg/dL (1.8-2.4) Test 06/08/21 22:20 06/09/21 04:10 06/09/21 07:35 Vancomycin Level Trough 20.4 mcg/mL (10.0-20.0) Vancomycin Last Dose Date Vancomycin Last Dose Time Creatinine 1.2 mg/dL (0.6-1.0) Estimated GFR (Cockcroft-Gault) 43.0 Glucose (Fingerstick) 110 mg/dL (70-99) Microbiology 06/03/21 Urine Culture - Final, Complete Klebsiella Pneumoniae 06/03/21 Blood Culture - Final, Complete NO GROWTH AFTER 5 DAYS Medications Current Medications Vancomycin HCl 1.5 gm/Sodium Chloride 500 ml @ 250 mls/hr 1X ONCE IV ; Start 06/03/21 at 23:00; Stop 06/04/21 at 00:59; Status UNV Piperacillin Sod/ Tazobactam Sod 4.5 gm/Sodium Chloride 100 ml @ 200 mls/hr 1X ONCE IV Last administered on 06/04/21at 00:02; Start 06/03/21 at 23:30; Stop 06/03/21 at 23:59; Status DC Furosemide (Lasix) 20 mg 1X ONCE IVP Last administered on 06/04/21at 00:00; Start 06/03/21 at 23:30; Stop 06/03/21 at 23:31; Status DC Vancomycin HCl (Vanco Per Pharmacy) 1 each PRN DAILY PRN MC SEE COMMENTS Last administered on 06/09/21at 02:21; Start 06/03/21 at 23:45 Vancomycin HCl 2 gm/Sodium Chloride 500 ml @ 250 mls/hr 1X ONCE IV Last administered on 06/04/21at 00:16; Start 06/04/21 at 00:00; Stop 06/04/21 at 01:59; Status DC Acetaminophen/ Hydrocodone Bitart (Lortab 5/325) 1 tab 1X ONCE PO Last administered on 06/04/21at 00:14; Start 06/04/21 at 00:30; Stop 06/04/21 at 00:31; Status DC Ondansetron HCl (Zofran) 4 mg PRN Q8HRS PRN IVP NAUSEA/VOMITING 1ST CHOICE; Start 06/04/21 at 01:45; Stop 06/05/21 at 01:44; Status DC Acetaminophen (Tylenol) 650 mg PRN Q6HRS PRN PO MILD PAIN / TEMP > 100.3'F; Start 06/04/21 at 01:45 Diphenhydramine HCl (Benadryl) 25 mg PRN Q6HRS PRN PO insomnia or itching Last administered on 06/05/21at 21:16; Start 06/04/21 at 01:45 Fentanyl Citrate (Fentanyl 2ml Vial) 50 mcg PRN Q4HRS PRN IVP SEVERE PAIN 7-10 Last administered on 06/04/21at 02:18; Start 06/04/21 at 01:45; Stop 06/04/21 at 04:58; Status DC Vancomycin HCl 2 gm/Sodium Chloride 500 ml @ 250 mls/hr Q24H IV Last administered on 06/09/21 02:15; Start 06/04/21 at 23:00 Vancomycin HCl (Vancomycin Trough Level) 1 each 1X ONCE MC Last administered on 06/05/21at 22:30; Start 06/05/21 at 22:30; Stop 06/05/21 at 22:31; Status DC Fentanyl Citrate (Fentanyl 2ml Vial) 50 mcg PRN Q2HR PRN IVP SEVERE PAIN 7-10 Last administered on 06/04/21at 08:49; Start 06/04/21 at 05:00 Acetaminophen (Tylenol) 650 mg PRN QHS PRN PO MILD PAIN 1-3; Start 06/04/21 at 05:00 Apixaban (Eliquis) 2.5 mg BID PO Last administered on 06/06/21 08:05; Start 06/04/21 at 09:00; Stop 06/06/21 at 15:58; Status DC Bumetanide (Bumex) 1 mg BID94 PO Last administered on 06/06/21 08:05; Start 06/04/21 at 09:00; Stop 06/06/21 at 14:53; Status DC Celecoxib (CeleBREX) 100 mg PRN BID PRN PO INFLAMMATION Last administered on 06/08/21 22:36; Start 06/04/21 at 05:00 Cyclosporine (Restasis) 1 drop BID OU Last administered on 06/09/21 09:06; Start 06/04/21 at 09:00 Levothyroxine Sodium (Synthroid) 88 mcg DAILY06 PO Last administered on 06/09/21 06:09; Start 06/04/21 at 06:00 Losartan Potassium (Cozaar) 50 mg DAILY PO Last administered on 06/06/21 08:04; Start 06/04/21 at 09:00; Stop 06/06/21 at 14:53; Status DC Magnesium Oxide (Magnesium Oxide) 400 mg DAILY PO Last administered on 06/09/21 09:06; Start 06/04/21 at 09:00 Nitroglycerin (Nitrostat) 0.4 mg PRN Q5MIN PRN SL CHEST PAIN Last administered on 06/07/21 11:26; Start 06/04/21 at 05:00 Carvedilol (Coreg) 25 mg BIDWMEALS PO Last administered on 06/06/21 08:06; Start 06/04/21 at 08:00; Stop 06/06/21 at 14:53; Status DC Vitamin D (Vitamin D3) 1,000 unit DAILY PO Last administered on 06/09/21 09:06; Start 06/04/21 at 09:00 Insulin Human Lispro (HumaLOG) 16 units TIDWMEALS SQ Last administered on 06/08/21 08:20; Start 06/04/21 at 08:00 Insulin Glargine (Lantus Syringe) 50 unit QHS SQ Last administered on 06/08/21 22:37; Start 06/04/21 at 21:00 Pantoprazole Sodium (Protonix) 40 mg DAILYAC PO Last administered on 06/09/21 09:05; Start 06/04/21 at 07:30 Atorvastatin Calcium (Lipitor) 5 mg DAILY PO Last administered on 06/09/21 09:05; Start 06/04/21 at 09:00 Dextrose (Dextrose 50%-Water Syringe) 12.5 gm PRN Q15MIN PRN IV SEE COMMENTS; Start 06/04/21 at 05:30 Dextrose (Iv Dextrose 5%) 250 ml PRN Q15MIN PRN IV SEE COMMENTS; Start 06/04/21 at 05:30 Info (Anti-Coagulation Monitoring By Pharmacy) 1 each PRN DAILY PRN MC PER PROTOCOL Last administered on 06/04/21at 05:33; Start 06/04/21 at 05:30 Vitamin B Complex (Folbic Tablet) 1 tab DAILY PO Last administered on 06/09/21at 09:00; Start 06/04/21 at 11:00 Lidocaine (Lidoderm) 1 patch DAILY TD Last administered on 06/09/21 09:08; Start 06/04/21 at 11:30 Miscellaneous (Lidoderm Patch Removal) 1 ea QHS MC ; Start 06/04/21 at 21:00; Stop 06/04/21 at 10:43; Status DC Diclofenac Sodium (Voltaren) 1 laura BID TP Last administered on 06/09/21at 09:07; Start 06/04/21 at 11:30 Lidocaine (Lidoderm) 1 patch DAILY TD ; Start 06/04/21 at 11:00; Status Cancel Miscellaneous (Lidoderm Patch Removal) 1 ea QHS MC Last administered on 06/08/21at 21:00; Start 06/04/21 at 21:00 Acetaminophen/ Hydrocodone Bitart (Lortab 5/325) 1 tab PRN Q4HRS PRN PO MODERATE PAIN Last administered on 06/07/21 17:43; Start 06/04/21 at 10:45 Acetaminophen/ Hydrocodone Bitart (Lortab 5/325) 2 tab PRN Q4HRS PRN PO SEVERE PAIN Last administered on 06/09/21 09:10; Start 06/04/21 at 10:45 Nystatin (Nystop) 1 laura BID TP Last administered on 06/09/21 09:07; Start 06/04/21 at 14:00 Piperacillin Sod/ Tazobactam Sod (Zosyn Per Pharmacy) 1 each PRN DAILY PRN MC SEE COMMENTS; Start 06/04/21 at 14:15 Piperacillin Sod/ Tazobactam Sod 4.5 gm/Dextrose 100 ml @ 200 mls/hr Q6HRS IV Last administered on 06/05/21at 05:38; Start 06/04/21 at 16:00; Stop 06/05/21 at 07:44; Status DC Lactobacillus Rhamnosus (Culturelle) 1 cap BID PO Last administered on 06/09/21 09:05; Start 06/04/21 at 21:00 Sodium Chloride (Saline Mist Nasal) 1 laura PRN Q1HR PRN NS NASAL CONGESTION Last administered on 06/09/21at 09:11; Start 06/04/21 at 19:45 Piperacillin Sod/ Tazobactam Sod 3.375 gm/Sodium Chloride 50 ml @ 100 mls/hr Q6HRS IV Last administered on 06/09/21 06:10; Start 06/05/21 at 12:00 Docusate Sodium (Colace) 100 mg DAILY PO Last administered on 06/07/21 12:43; Start 06/06/21 at 13:15; Stop 06/07/21 at 16:33; Status DC Polyethylene Glycol (miraLAX PACKET) 17 gm DAILY PO Last administered on 06/08/21at 08:15; Start 06/06/21 at 13:15 Carvedilol (Coreg) 12.5 mg BIDWMEALS PO Last administered on 06/09/21at 09:06; Start 06/06/21 at 17:00 Apixaban (Eliquis) 2.5 mg BID PO Last administered on 06/09/21at 09:05; Start 06/07/21 at 21:00 Heparin Sodium/ Sodium Chloride 500 ml @ As Directed STK-MED ONCE .ROUTE ; Start 06/07/21 at 10:42; Stop 06/07/21 at 10:42; Status DC Fentanyl Citrate (Fentanyl 2ml Vial) 100 mcg STK-MED ONCE .ROUTE ; Start 06/07/21 at 10:50; Stop 06/07/21 at 10:50; Status DC Midazolam HCl (Versed) 2 mg STK-MED ONCE .ROUTE ; Start 06/07/21 at 10:50; Stop 06/07/21 at 10:50; Status DC Heparin Sodium/ Sodium Chloride (HEPARIN for ARTERIAL LINE FLUSH) 1,000 unit 1X ONCE IART Last administered on 06/07/21at 11:00; Start 06/07/21 at 11:00; Stop 06/07/21 at 11:10; Status DC Midazolam HCl (Versed) 2 mg 1X ONCE IV Last administered on 06/07/21at 11:47; Start 06/07/21 at 11:00; Stop 06/07/21 at 11:11; Status DC Fentanyl Citrate (Fentanyl 2ml Vial) 100 mcg 1X ONCE IV Last administered on 06/07/21at 11:47; Start 06/07/21 at 11:00; Stop 06/07/21 at 11:10; Status DC Lidocaine HCl (Lidocaine 1% 20ml Vial) 20 ml 1X ONCE INJ Last administered on 06/07/21at 11:51; Start 06/07/21 at 11:00; Stop 06/07/21 at 11:10; Status DC Nitroglycerin (Nitrostat) 0.4 mg STK-MED ONCE SL ; Start 06/07/21 at 11:25; Stop 06/07/21 at 11:25; Status DC Albuterol Sulfate (Ventolin Neb Soln) 2.5 mg 1X ONCE NEB ; Start 06/07/21 at 11:30; Stop 06/07/21 at 11:31; Status DC Albuterol/ Ipratropium (Duoneb) 3 ml STK-MED ONCE .ROUTE ; Start 06/07/21 at 11:47; Stop 06/07/21 at 11:47; Status DC Furosemide (Lasix) 40 mg 1X ONCE IVP Last administered on 06/07/21at 15:47; Start 06/07/21 at 14:00; Stop 06/07/21 at 14:01; Status DC Docusate Sodium (Colace) 100 mg BID PO Last administered on 06/08/21at 08:15; Start 06/07/21 at 21:00 Magnesium Citrate (Citroma) 296 ml 1X ONCE PO Last administered on 06/08/21at 09:11; Start 06/08/21 at 08:45; Stop 06/08/21 at 08:46; Status DC Furosemide (Lasix) 40 mg 1X ONCE IVP Last administered on 06/08/21at 12:36; Start 06/08/21 at 13:00; Stop 06/08/21 at 13:01; Status DC Vancomycin HCl (Vancomycin Trough Level) 1 each 1X ONCE MC Last administered on 06/08/21at 22:30; Start 06/08/21 at 22:30; Stop 06/08/21 at 22:31; Status DC Active Scripts Active Reported Bumetanide 1 Mg Tablet 1 Mg PO BID Carvedilol 25 Mg Tablet 25 Mg PO BIDWMEALS Eliquis (Apixaban) 2.5 Mg Tablet 2.5 Mg PO BID Restasis (Cyclosporine) 1 Each Droperette 1 Drop EACHEYE BID Tylenol (Acetaminophen) 325 Mg Tablet 650 Mg PO QHS PRN Magnesium Oxide 400 Mg Tablet 400 Mg PO DAILY Protonix (Pantoprazole Sodium) 20 Mg Tablet.dr 40 Mg PO DAILY Novolog (Insulin Aspart) 100 Unit/1 Ml Cartridge 16 Unit SQ TIDAC Lantus Solostar (Insulin Glargine,Hum.rec.anlog) 100 Unit/1 Ml Insuln.pen 50 Unit SQ QHS Novolog Flexpen (Insulin Aspart) 100 Unit/1 Ml Insuln.pen 0 SQ TIDWMEALS PRN Celebrex (Celecoxib) 100 Mg Capsule 1 Cap PO PRN BID Nitrostat (Nitroglycerin) 0.4 Mg Tab.subl 1 Tab SL UD PRN Vitamin D (Cholecalciferol (Vitamin D3)) 1,000 Unit Capsule 1 Cap PO DAILY Losartan Potassium 50 Mg Tablet 50 Mg PO DAILY Synthroid (Levothyroxine Sodium) 88 Mcg Tablet 1 Tab PO DAILY Gave this morning Take tomorrow Pravastatin Sodium 20 Mg Tablet 1 Tab PO DAILY Vitals/I & O Vital Sign - Last 24 Hours 06/08/21 06/08/21 06/08/21 06/08/21 10:40 12:37 13:07 15:00 Temp 97.0 97.0 97.0 97.0 Pulse 86 84 Resp 22 20 B/P (MAP) 173/81 (111) 131/63 (85) Pulse Ox 97 97 97 96 O2 Delivery NonRebreather Mask Nasal Cannula Nasal Cannula Nasal Cannula O2 Flow Rate 10.0 10.0 10.0 10.0 06/08/21 06/08/21 06/08/21 06/08/21 17:02 19:09 20:00 22:21 Temp 97.7 97.5 97.7 97.5 Pulse 84 79 83 Resp 20 20 B/P (MAP) 131/63 132/63 (86) 151/67 (95) Pulse Ox 99 97 O2 Delivery Nasal Cannula Nasal Cannula Nasal Cannula O2 Flow Rate 10.0 10.0 10.0 06/09/21 06/09/21 06/09/21 06/09/21 02:15 03:40 04:10 09:06 Temp 97.4 97.4 Pulse 84 90 Resp 20 B/P (MAP) 144/73 (96) 175/77 Pulse Ox 97 97 97 O2 Delivery Nasal Cannula Nasal Cannula Nasal Cannula O2 Flow Rate 10.0 10.0 10.0 06/09/21 09:10 Pulse Ox 97 O2 Delivery Nasal Cannula O2 Flow Rate 5.0 Intake and Output 06/08/21 06/08/21 06/09/21 15:00 23:00 07:00 Intake Total 50 ml 800 ml 600 ml Output Total 1550 ml 1000 ml Balance 50 ml -750 ml -400 ml Justifications for Admission Other Justification MELANIE ABDULLAHI MD Jun 09, 2021 09:38
--- NOTE | 2021-06-09 09:45 | PDOC ---
[employer] PROGRESS NOTE Date of Service DOS: DATE: 06/09/21 TIME: 09:43 Chief Complaint Chief Complaint sepsis, UTI pneumonia, HCAP, broad abx CHF chronic combined, with afib, Coaglupathy, NOS, on eliquis morbid obesity, BMI 47 weakness and debility, syncope and fall, right knee injury, poss bone bruise. consult physiatry DM2 insulin dependent macrocytosis, CKD 3-4 History of Present Illness History of Present Illness 06/09/21 Patient seen and examined at bedside with present Says she has had several large stools since being given the mag citrate Was on 10L but has decreased to 5L, hoping condition improves enough that she is able to d/c to [facility] tomorrow Chart reviewed Discussed with RN and case management 06/08/21 Patient seen and examined at bedside Was in distress about constipation, will give mag citrate to hopefully fix this Will d/c to SNU once negative COVID PCR is obtained Chart reviewed Discussed with RN and case management 06/07/21 Patient seen and examined at beside with present They have agreed to placement in rehab, awaiting placement Going for cath today Chart reviewed Discussed with RN 06/06/21 Patient seen and examined bedside with present We reiterated the need for rehab and PT/OT. Bárbara is still resistant but seems to be more agreeable with pursuing rehab and says he will discuss it with her Patient did not want her knee to be touched or examined, complains of pain and discomfort Chart reviewed Discussed with RN 06/05 complains of knee pain, poor mobility, pain meds help and lidoderm patch helps her , [place], is here today try to improve above problmes Vitals/I&O Vitals/I&O: Vital Signs Date Time Temp Pulse Resp B/P (MAP) Pulse Ox O2 Delivery O2 Flow Rate FiO2 06/09/21 09:10 97 Nasal Cannula 5.0 06/09/21 09:06 90 175/77 06/09/21 02:15 97.4 20 97.4 I & O 06/08/21 06/08/21 06/09/21 15:00 23:00 07:00 Intake Total 50 ml 800 ml 600 ml Output Total 1550 ml 1000 ml Balance 50 ml -750 ml -400 ml Physical Exam General: No acute distress Heart: Regular rate Lungs: Clear Abdomen: Normal bowel sounds Extremities: No cyanosis, Normal pulses, Other (edema) Skin: No rashes Labs Labs: Laboratory Tests Test 06/08/21 11:50 06/08/21 15:40 06/08/21 16:52 06/08/21 20:10 Glucose (Fingerstick) 108 mg/dL (70-99) 108 mg/dL (70-99) 102 mg/dL (70-99) Sodium Level 136 mmol/L (136-145) Potassium Level 4.2 mmol/L (3.5-5.1) Chloride Level 98 mmol/L (98-107) Carbon Dioxide Level 29 mmol/L (21-32) Anion Gap 9 (6-14) Blood Urea Nitrogen 22 mg/dL (7-20) Creatinine 1.4 mg/dL (0.6-1.0) Estimated GFR (Cockcroft-Gault) 36.0 Glucose Level 112 mg/dL (70-99) Calcium Level 8.8 mg/dL (8.5-10.1) Magnesium Level 2.2 mg/dL (1.8-2.4) Test 06/08/21 22:20 06/09/21 04:10 06/09/21 07:35 Vancomycin Level Trough 20.4 mcg/mL (10.0-20.0) Vancomycin Last Dose Date Vancomycin Last Dose Time Creatinine 1.2 mg/dL (0.6-1.0) Estimated GFR (Cockcroft-Gault) 43.0 Glucose (Fingerstick) 110 mg/dL (70-99) Assessment and Plan Assessmemt and Plan Problems Medical Problems: (1) Chronic respiratory failure with hypoxia, on home O2 therapy Status: Acute (2) Diabetes mellitus Status: Acute (3) Failure to thrive Status: Acute (4) Generalized weakness Status: Acute (5) Healthcare-associated pneumonia Status: Acute (6) Syncope Status: Acute (7) Urinary tract infection Status: Acute Problems Sepsis UTI pneumonia, HCAP, broad abx CHF chronic combined, with afib, Coaglupathy, NOS morbid obesity, BMI 47 weakness and debility, syncope and fall, right knee injury, poss bone bruise. consult physiatry DM2 insulin dependent macrocytosis, CKD 3-4 Plan D/c when medical condition improves Cont antibiotics Cont Eliquis Cont protonix Cont using incentive spirometer cont humalong with meals and Lantus at night Appreciate cardiology, pulmonary, and physiatry input Cont PT/OT DVT prophylaxis Home meds Full code Comment Review of Relevant I have reviewed the following items ashwini (where applicable) has been applied. Medications: Current Medications Medications (Trade) Dose Ordered Sig/Massimo Route PRN Reason Start Time Stop Time Status Last Admin Dose Admin Furosemide (Lasix) 40 mg 1X ONCE IVP 06/08/21 13:00 06/08/21 13:01 DC 06/08/21 12:36 Vancomycin HCl (Vancomycin Trough Level) 1 each 1X ONCE MC 06/08/21 22:30 06/08/21 22:31 DC 06/08/21 22:30 Justifications for Admission Other Justification AC GARY III DO Jun 09, 2021 09:45
[2021-06-09 10:42] VITALS: BP 141/87
--- NOTE | 2021-06-09 11:10 | PDOC ---
BRIAN CORDERO [employer] 06/09/21 1110: CARDIO Progress Notes Date and Time Date of Service 06/09/21 Time of Evaluation 1110 Subjective Subjective: Other (breathing improved) Vitals Vitals Vital Signs Date Time Temp Pulse Resp B/P (MAP) Pulse Ox O2 Delivery O2 Flow Rate FiO2 06/09/21 10:42 97.6 80 18 141/87 (105) 95 Nasal Cannula 10.0 97.6 Weight Weight [ ] Input and Output Intake and Output Intake and Output 06/09/21 07:00 Intake Total 1450 ml Output Total 2550 ml Balance -1100 ml Intake Oral 1400 ml IV Total 50 ml Output Urine Total 2550 ml # Bowel Movements 4 Laboratory Labs Laboratory Tests Test 06/08/21 11:50 06/08/21 15:40 06/08/21 16:52 06/08/21 20:10 Glucose (Fingerstick) 108 mg/dL (70-99) 108 mg/dL (70-99) 102 mg/dL (70-99) Sodium Level 136 mmol/L (136-145) Potassium Level 4.2 mmol/L (3.5-5.1) Chloride Level 98 mmol/L (98-107) Carbon Dioxide Level 29 mmol/L (21-32) Anion Gap 9 (6-14) Blood Urea Nitrogen 22 mg/dL (7-20) Creatinine 1.4 mg/dL (0.6-1.0) Estimated GFR (Cockcroft-Gault) 36.0 Glucose Level 112 mg/dL (70-99) Calcium Level 8.8 mg/dL (8.5-10.1) Magnesium Level 2.2 mg/dL (1.8-2.4) Test 06/08/21 22:20 06/09/21 04:10 06/09/21 07:35 Vancomycin Level Trough 20.4 mcg/mL (10.0-20.0) Vancomycin Last Dose Date Vancomycin Last Dose Time Creatinine 1.2 mg/dL (0.6-1.0) Estimated GFR (Cockcroft-Gault) 43.0 Glucose (Fingerstick) 110 mg/dL (70-99) Microbiology Micro Microbiology 06/03/21 Urine Culture - Final, Complete Klebsiella Pneumoniae 06/03/21 Blood Culture - Final, Complete NO GROWTH AFTER 5 DAYS Physical Exam HEENT: Neck Supple W Full Motion Chest: Symmetric LUNGS: Other (diminished bases) Heart: irregularly irregular (AFIB) Abdomen: Soft N/T, Other (obese) Extremities: Other (1+ bilateral LE edema ) Neurology: alert, oriented, follow commands Assessment Assessment 1. Syncopal episode; ? vasovagal episode while on toilet. Cannot rule out contributing bradyarrhythmia. CT head and neck without acute findings. 2. Chronic AFIB; Tele noted with intermittent slow VR with HR lowest in the upper 30's. resolved with lowering BB 3. Acute on chronic diastolic CHF; Echo 10/26 with preserved LV systolic function. RHC with elevated filling pressures and moderate pulmonary pretension, mean PA 42 mmHg. improved s/p IV diuresis 4. CAD; s/p stents x2 approx 4 yrs ago. Clinically stable. CP free 5. PAD s/p atherectomy/TIME RECORDER to left SFA 2019 6. Hypertension; controlled 7. Hyperlipidemia; statin 8. Diabetes, II 9. LARRY on CKD; Cr improved 10. Hypothyroidism 11. UTI 12. Anemia, thrombocytopenia Recommendations Would benefit from further diuresis. Will give additional IV Lasix today Monitor renal function Am Labs Secondary prevention Ongoing support Justicifation of Admission Dx: Justifications for Admission: Justification of Admission Dx: Yes JUVE QUIROZ MD 06/09/21 1719: CARDIO Progress Notes Plan Plan Pt. seen and examined. Agree with above SOLE TIER note. Discussed with pulmonary service. Continue diuresis. Supportive care. BRIAN CORDERO APRN Jun 09, 2021 11:10 JUVE QUIROZ MD Jun 09, 2021 17:19
--- NOTE | 2021-06-09 12:24 | PDOC ---
PULMONARY PROGRESS NOTES DATE: 06/09/21 TIME: 12:20 Subjective Patient down to 5 lites Vitals Vital Signs Date Time Temp Pulse Resp B/P (MAP) Pulse Ox O2 Delivery O2 Flow Rate FiO2 06/09/21 10:42 97.6 80 18 141/87 (105) 95 Nasal Cannula 10.0 97.6 ROS: No Nausea, No Chest Pain, No Increase Cough General: Alert, No acute distress Lungs: Clear Cardiovascular: S1, S2 Abdomen: Soft, Non-tender Neuro Exam: Alert Extremities: Other (2+ non-pitting) Skin: Warm, No Rashes Labs Laboratory Tests Test 06/07/21 13:00 06/07/21 16:38 06/07/21 19:44 06/08/21 08:19 Glucose (Fingerstick) 131 mg/dL (70-99) 167 mg/dL (70-99) 136 mg/dL (70-99) 176 mg/dL (70-99) Test 06/08/21 11:50 06/08/21 15:40 06/08/21 16:52 06/08/21 20:10 Glucose (Fingerstick) 108 mg/dL (70-99) 108 mg/dL (70-99) 102 mg/dL (70-99) Sodium Level 136 mmol/L (136-145) Potassium Level 4.2 mmol/L (3.5-5.1) Chloride Level 98 mmol/L (98-107) Carbon Dioxide Level 29 mmol/L (21-32) Anion Gap 9 (6-14) Blood Urea Nitrogen 22 mg/dL (7-20) Creatinine 1.4 mg/dL (0.6-1.0) Estimated GFR (Cockcroft-Gault) 36.0 Glucose Level 112 mg/dL (70-99) Calcium Level 8.8 mg/dL (8.5-10.1) Magnesium Level 2.2 mg/dL (1.8-2.4) Test 06/08/21 22:20 06/09/21 04:10 06/09/21 07:35 06/09/21 11:17 Vancomycin Level Trough 20.4 mcg/mL (10.0-20.0) Vancomycin Last Dose Date Vancomycin Last Dose Time Creatinine 1.2 mg/dL (0.6-1.0) Estimated GFR (Cockcroft-Gault) 43.0 Glucose (Fingerstick) 110 mg/dL (70-99) 154 mg/dL (70-99) Laboratory Tests Test 06/08/21 15:40 06/08/21 16:52 06/08/21 20:10 06/08/21 22:20 Sodium Level 136 mmol/L (136-145) Potassium Level 4.2 mmol/L (3.5-5.1) Chloride Level 98 mmol/L (98-107) Carbon Dioxide Level 29 mmol/L (21-32) Anion Gap 9 (6-14) Blood Urea Nitrogen 22 mg/dL (7-20) Creatinine 1.4 mg/dL (0.6-1.0) Estimated GFR (Cockcroft-Gault) 36.0 Glucose Level 112 mg/dL (70-99) Calcium Level 8.8 mg/dL (8.5-10.1) Magnesium Level 2.2 mg/dL (1.8-2.4) Glucose (Fingerstick) 108 mg/dL (70-99) 102 mg/dL (70-99) Vancomycin Level Trough 20.4 mcg/mL (10.0-20.0) Vancomycin Last Dose Date Vancomycin Last Dose Time Test 06/09/21 04:10 06/09/21 07:35 06/09/21 11:17 Creatinine 1.2 mg/dL (0.6-1.0) Estimated GFR (Cockcroft-Gault) 43.0 Glucose (Fingerstick) 110 mg/dL (70-99) 154 mg/dL (70-99) Medications Active Scripts Medications Dose Route/Sig Max Daily Dose Days Date Category Dose Instructions Bumetanide 1 Mg Tablet 1 Mg PO BID 06/04/21 Reported Carvedilol 25 Mg Tablet 25 Mg PO BIDWMEALS 06/04/21 Reported Eliquis (Apixaban) 2.5 Mg Tablet 2.5 Mg PO BID 06/04/21 Reported Restasis (Cyclosporine) 1 Each Droperette 1 Drop EACHEYE BID 01/09/18 Reported Tylenol (Acetaminophen) 325 Mg Tablet 650 Mg PO QHS PRN 01/09/18 Reported Magnesium Oxide 400 Mg Tablet 400 Mg PO DAILY 01/09/18 Reported Protonix (Pantoprazole Sodium) 20 Mg Tablet.dr 40 Mg PO DAILY 01/09/18 Reported Novolog (Insulin Aspart) 100 Unit/1 Ml Cartridge 16 Unit SQ TIDAC 01/09/18 Reported Lantus Solostar (Insulin Glargine,Hum.rec.anlog) 100 Unit/1 Ml Insuln.pen 50 Unit SQ QHS 01/09/18 Reported Novolog Flexpen (Insulin Aspart) 100 Unit/1 Ml Insuln.pen 0 SQ TIDWMEALS PRN 02/19/16 Reported Celebrex (Celecoxib) 100 Mg Capsule 1 Cap PO PRN BID 02/19/16 Reported Nitrostat (Nitroglycerin) 0.4 Mg Tab.subl 1 Tab SL UD PRN 02/16/16 Reported Vitamin D (Cholecalciferol (Vitamin D3)) 1,000 Unit Capsule 1 Cap PO DAILY 02/16/16 Reported Losartan Potassium 50 Mg Tablet 50 Mg PO DAILY 02/16/16 Reported Synthroid (Levothyroxine Sodium) 88 Mcg Tablet 1 Tab PO DAILY 02/16/16 Reported Gave this morning Take tomorrow Pravastatin Sodium 20 Mg Tablet 1 Tab PO DAILY 02/16/16 Reported Impression . 1. Acute on chronic respiratory failure secondary to acute diastolic congestive heart failure,/acute cor pulmonale/ rule out pneumonia. She had a syncopal episode ? aspiration pneumonitis. 2. Abnormal chest x-ray. 3. Acute diastolic congestive heart failure. 4. Atrial fibrillation. 5. Hypertension. 6. Obstructive sleep apnea-hypopnea syndrome, obesity hypoventilation syndrome. 7. Gastroesophageal reflux disease. 8. Acute kidney injury. 9. klebsiella UTI Plan . clinically improving with lasix Continue O2 titration to maintain O2 sat 90% Will benefit from extra diuresis. improving CHF on cxr Labs reviewed; Bun/Creatinine stable wean abx. DC VANC Encourage pulmonary hygiene; IS hourly while awake Eliquis for anticoagulation Protonix for Prophylaxis Continue Arredondo for accurate I&O; Currently on Bux SHLOMO RODRIGUEZ MD Jun 09, 2021 12:24
[2021-06-09] MEDS ORDERED: FUROSEMIDE 40 MG/4 ML VIAL. IVP ONE (12:30)
[2021-06-09 15:00] VITALS: BP 164/71
--- NOTE | 2021-06-09 16:53 | CARD ---
MR#: [id number] Date of Study: 06/09/2021 Ordering Physician: BRIAN CORDERO, Referring Physician: BRIAN CORDERO, Tahmina: Nelson Mendes [facility] APPROVED REPORT EXAM: Two-dimensional and M-mode echocardiogram with Doppler and color Doppler. Other Information Quality : FairHR: 83bpm Rhythm : Atrial FibrillationTechnically limited study due to body habitus. INDICATION Cardiac Disease: CAD Syncope RISK FACTORS Hypertension Obesity Hyperlipidemia Smoking 2D DIMENSIONS Left Atrium(2D)4.7 (1.6-4.0cm)IVSd1.1 (0.7-1.1cm) Aortic Root(2D)4.2 (2.0-3.7cm)LVDd5.7 (3.9-5.9cm) LVOT Diameter2.1 (1.8-2.4cm)PWd1.1 (0.7-1.1cm) LVDs4.2 (2.5-4.0cm)FS (%) 25.8 % SV81.0 ml Aortic Valve AoV Peak Fredy.114.6cm/sAoV VTI23.9cm AO Peak GR.5.3mmHgLVOT Peak Fredy.90.2cm/s AO Mean GR.3mmHgAVA (VMAX)2.66cm2 Mitral Valve MV E Wwnplhbi744.6cm/sMV E Peak Gr.9mmHg MV DECEL [id number] A Nfkcnndo36.9cm/s MV E Mean Gr.3mmHgE/A Ratio2.6 Pulmonary Valve PV Peak Vsedgjhp58.9cm/s Tricuspid Valve TR P. Dtynchxh586js/sTR Peak Gr.66mmHg Pulmonary Vein S1 Pvpszjyx11.3cm/sD2 Nmaegwwc31.5cm/s LEFT VENTRICLE The left ventricle is normal size. There is borderline to mild concentric left ventricular hypertroph y. The left ventricular systolic function is normal and the ejection fraction is within normal range. LV ejection fraction of 50 to 55%. There is normal LV segmental wall motion. Tissue Doppler imaging reveals abnormal left ventricular diastolic dysfunction. No left ventricle thrombus noted on this crystal dy. There is no ventricular septal defect visualized. There is no left ventricular aneurysm. There is no mass noted in the left ventricle. RIGHT VENTRICLE The right ventricle is mildly dilated. There is normal right ventricular wall thickness. The right ve ntricular systolic function is normal. ATRIA The left atrium is mildly dilated. The right atrium is mildly dilated. The interatrial septum is inta ct with no evidence for an atrial septal defect or patent foramen ovale as noted on 2-D or Doppler im aging. AORTIC VALVE The aortic valve is not well seen. Doppler and Color Flow revealed no significant aortic regurgitatio n. There is no significant aortic valvular stenosis. There is no aortic valvular vegetation. MITRAL VALVE The mitral valve is thickened but opens well. There is no evidence of mitral valve prolapse. There is no mitral valve stenosis. Doppler and Color-flow revealed mild mitral regurgitation. TRICUSPID VALVE The tricuspid valve is normal in structure and function. Doppler and Color Flow revealed mild tricusp id regurgitation. The PA pressure was estimated at > 55 mmHg. There is no tricuspid valve prolapse or vegetation. There is no tricuspid valve stenosis. PULMONIC VALVE The pulmonary valve is normal in structure and function. Doppler and Color Flow revealed no pulmonic valvular regurgitation. There is no pulmonic valvular stenosis. GREAT VESSELS The aortic root is normal in size. The ascending aorta is normal in size. The pulmonary artery is nor mal. The IVC is dilated with blunted inspiratory response. PERICARDIAL EFFUSION There is no pleural effusion. There is no evidence of significant pericardial effusion. Critical Notification Critical Value: No <Conclusion> The left ventricle is normal size. The left ventricular systolic function is normal and the ejection fraction is within normal range. LV ejection fraction of 50 to 55%. There is borderline to mild concentric left ventricular hypertrophy. Doppler and Color Flow revealed no significant aortic regurgitation. There is no significant aortic valvular stenosis. Doppler and Color-flow revealed mild mitral regurgitation. Doppler and Color Flow revealed mild tricuspid regurgitation. The PA pressure was estimated at > 55 mmHg. Signed by : Mario Reed MD Electronically Approved : 06/09/2021 16:53:09
[2021-06-09 19:01] VITALS: BP 162/81
[2021-06-09] MEDS ORDERED: ATORVASTATIN CALCIUM 20 MG TABLET PO SCH (21:00)
[2021-06-09] MEDS: PATCH REMOVAL. MC SCH (21:00)
[2021-06-09] MEDS: CELECOXIB 100 MG CAPSULE. PO PRN (21:59)
[2021-06-09] MEDS: INSULIN GLARGINE SYRINGE. SQ SCH (22:02)
[2021-06-09 22:22] VITALS: BP 151/69
[2021-06-10] MEDS: PIPERACILLIN/TAZOBACTAM 3.375 GM in IV NORMAL SALINE 50ML 50 ML IV SCH ×3 (00:58→11:31)
[2021-06-10 02:26] VITALS: BP 139/63
[2021-06-10 04:39] LABS: BASO % 0 % (0-3); EOS # 0.1 x10^3/uL (0.0-0.7); EOS % 2 % (0-3); HEMATOCRIT 29.8 % (36.0-47.0); HEMOGLOBIN 9.6 g/dL (12.0-15.5); LYMPH # 0.6 x10^3/uL (1.0-4.8); LYMPH % 14 % (24-48); MEAN CORPUSCULAR HEMOGLOBIN 34 pg (25-35); MEAN CORPUSCULAR HGB CONC 32 g/dL (31-37); MEAN CORPUSCULAR VOLUME 106 fL (79-100); MONO # 0.6 x10^3/uL (0.0-1.1); MONO % 13 % (0-9); NEUT % 70 % (31-73); PLATELET COUNT 133 x10^3/uL (140-400); RED BLOOD COUNT 2.82 x10^6/uL (3.50-5.40); RED CELL DISTRIBUTION WIDTH 17.6 % (11.5-14.5); WHITE BLOOD COUNT 4.3 x10^3/uL (4.0-11.0)
[2021-06-10 05:13] LABS: CHOLESTEROL/HDL RATIO 2.4
[2021-06-10] MEDS: LEVOTHYROXINE 88 MCG TABLET PO SCH (05:50)
[2021-06-10 06:02] LABS: CALCIUM 8.6 mg/dL (8.5-10.1); CREATININE 1.5 mg/dL (0.6-1.0); GFR 33.2; MAGNESIUM 1.9 mg/dL (1.8-2.4); POTASSIUM 4.1 mmol/L (3.5-5.1)
[2021-06-10 07:00] VITALS: BP 158/67
[2021-06-10] MEDS: VITAMIN B12,B9,B6 COMPLEX 1 TABLET. PO SCH (08:44)
[2021-06-10] MEDS: APIXABAN 2.5 MG TABLET. PO SCH (08:44)
[2021-06-10] MEDS: INSULIN LISPRO 300 UNITS/3 ML VIAL. SQ SCH ×3 (08:44→16:31)
[2021-06-10] MEDS: CHOLECALCIFEROL (VITAMIN D3) 1,000 UNIT TABLET PO SCH (08:44)
[2021-06-10] MEDS: PANTOPRAZOLE 40 MG TABLET.DR. PO SCH (08:45)
[2021-06-10] MEDS: MAGNESIUM OXIDE 400 MG TABLET PO SCH (08:45)
[2021-06-10] MEDS: LACTOBACILLUS RHAMNOSUS GG 1 CAPSULE. PO SCH (08:45)
[2021-06-10] MEDS: cycloSPORINE 0.05% OPHTH DROPERETTE. OU SCH (08:45)
[2021-06-10] MEDS: CARVEDILOL 12.5 MG TABLET. PO SCH ×2 (08:45→16:30)
[2021-06-10] MEDS: LIDOCAINE (700MG/PATCH) PATCH. TD SCH (08:46)
[2021-06-10] MEDS: NYSTATIN TOPICAL POWDER 15GM BOTTLE. TP SCH (08:47)
[2021-06-10] MEDS: DICLOFENAC SODIUM 1% TOPICAL GEL 100GM TUBE. TP SCH (08:47)
[2021-06-10] MEDS: DOCUSATE SODIUM 100 MG CAPSULE. PO SCH (08:48)
[2021-06-10] MEDS: POLYETHYLENE GLYCOL 3350 17 GM PACKET. PO SCH (08:49)
[2021-06-10 10:07] VITALS: BP 169/74
--- NOTE | 2021-06-10 10:10 | PDOC ---
PROGRESS NOTES Date of Service DATE: 06/10/21 TIME: 10:07 Subjective Subjective She admits continued right knee joint pain. Objective Objective Vital Signs Date Time Temp Pulse Resp B/P (MAP) Pulse Ox O2 Delivery O2 Flow Rate FiO2 06/10/21 08:45 103 158/67 06/10/21 07:29 Nasal Cannula 5.0 06/10/21 07:00 98.8 20 92 98.8 Intake and Output 06/10/21 07:00 Intake Total 580 ml Output Total 1700 ml Balance -1120 ml Intake Oral 480 ml IV Total 100 ml Output Urine Total 1700 ml # Bowel Movements 2 Physical Exam Physical Exam She is alert,supine in bed and continues with painfully limited right knee joint ROM and she continues to require assistance with mobility and self care. Assessment Assessment Problems Medical Problems: (1) Chronic respiratory failure with hypoxia, on home O2 therapy Status: Acute (2) Diabetes mellitus Status: Acute (3) Failure to thrive Status: Acute (4) Generalized weakness Status: Acute (5) Healthcare-associated pneumonia Status: Acute (6) Syncope Status: Acute (7) Urinary tract infection Status: Acute Plan Plan of Care To SNF when medically stable. Comment Review of Relevant I have reviewed the following items ashwini (where applicable) has been applied. Labs Laboratory Tests Test 06/08/21 11:50 06/08/21 15:40 06/08/21 16:52 06/08/21 20:10 Glucose (Fingerstick) 108 mg/dL (70-99) 108 mg/dL (70-99) 102 mg/dL (70-99) Sodium Level 136 mmol/L (136-145) Potassium Level 4.2 mmol/L (3.5-5.1) Chloride Level 98 mmol/L (98-107) Carbon Dioxide Level 29 mmol/L (21-32) Anion Gap 9 (6-14) Blood Urea Nitrogen 22 mg/dL (7-20) Creatinine 1.4 mg/dL (0.6-1.0) Estimated GFR (Cockcroft-Gault) 36.0 Glucose Level 112 mg/dL (70-99) Calcium Level 8.8 mg/dL (8.5-10.1) Magnesium Level 2.2 mg/dL (1.8-2.4) Test 06/08/21 22:20 06/09/21 04:10 06/09/21 07:35 06/09/21 11:17 Vancomycin Level Trough 20.4 mcg/mL (10.0-20.0) Vancomycin Last Dose Date Vancomycin Last Dose Time Creatinine 1.2 mg/dL (0.6-1.0) Estimated GFR (Cockcroft-Gault) 43.0 Glucose (Fingerstick) 110 mg/dL (70-99) 154 mg/dL (70-99) Test 06/09/21 16:40 06/09/21 20:43 06/10/21 02:14 06/10/21 04:00 Glucose (Fingerstick) 70 mg/dL (70-99) 173 mg/dL (70-99) 172 mg/dL (70-99) White Blood Count 4.3 x10^3/uL (4.0-11.0) Red Blood Count 2.82 x10^6/uL (3.50-5.40) Hemoglobin 9.6 g/dL (12.0-15.5) Hematocrit 29.8 % (36.0-47.0) Mean Corpuscular Volume 106 fL (79-100) Mean Corpuscular Hemoglobin 34 pg (25-35) Mean Corpuscular Hemoglobin Concent 32 g/dL (31-37) Red Cell Distribution Width 17.6 % (11.5-14.5) Platelet Count 133 x10^3/uL (140-400) Neutrophils (%) (Auto) 70 % (31-73) Lymphocytes (%) (Auto) 14 % (24-48) Monocytes (%) (Auto) 13 % (0-9) Eosinophils (%) (Auto) 2 % (0-3) Basophils (%) (Auto) 0 % (0-3) Neutrophils # (Auto) 3.0 x10^3/uL (1.8-7.7) Lymphocytes # (Auto) 0.6 x10^3/uL (1.0-4.8) Monocytes # (Auto) 0.6 x10^3/uL (0.0-1.1) Eosinophils # (Auto) 0.1 x10^3/uL (0.0-0.7) Basophils # (Auto) 0.0 x10^3/uL (0.0-0.2) Sodium Level 140 mmol/L (136-145) Potassium Level 4.1 mmol/L (3.5-5.1) Chloride Level 97 mmol/L (98-107) Carbon Dioxide Level 31 mmol/L (21-32) Anion Gap 12 (6-14) Blood Urea Nitrogen 21 mg/dL (7-20) Creatinine 1.5 mg/dL (0.6-1.0) Estimated GFR (Cockcroft-Gault) 33.2 Glucose Level 162 mg/dL (70-99) Calcium Level 8.6 mg/dL (8.5-10.1) Magnesium Level 1.9 mg/dL (1.8-2.4) Triglycerides Level 95 mg/dL (0-150) Cholesterol Level 107 mg/dL (0-200) LDL Cholesterol, Calculated 43 mg/dL (0-100) VLDL Cholesterol, Calculated 19 mg/dL (0-40) Non-HDL Cholesterol Calculated 62 mg/dL (0-129) HDL Cholesterol 45 mg/dL (40-60) Cholesterol/HDL Ratio 2.4 Thyroid Stimulating Hormone (TSH) 1.476 uIU/mL (0.358-3.74) Test 06/10/21 07:34 Glucose (Fingerstick) 153 mg/dL (70-99) Laboratory Tests Test 06/09/21 11:17 06/09/21 16:40 06/09/21 20:43 06/10/21 02:14 Glucose (Fingerstick) 154 mg/dL (70-99) 70 mg/dL (70-99) 173 mg/dL (70-99) 172 mg/dL (70-99) Test 06/10/21 04:00 06/10/21 07:34 White Blood Count 4.3 x10^3/uL (4.0-11.0) Red Blood Count 2.82 x10^6/uL (3.50-5.40) Hemoglobin 9.6 g/dL (12.0-15.5) Hematocrit 29.8 % (36.0-47.0) Mean Corpuscular Volume 106 fL (79-100) Mean Corpuscular Hemoglobin 34 pg (25-35) Mean Corpuscular Hemoglobin Concent 32 g/dL (31-37) Red Cell Distribution Width 17.6 % (11.5-14.5) Platelet Count 133 x10^3/uL (140-400) Neutrophils (%) (Auto) 70 % (31-73) Lymphocytes (%) (Auto) 14 % (24-48) Monocytes (%) (Auto) 13 % (0-9) Eosinophils (%) (Auto) 2 % (0-3) Basophils (%) (Auto) 0 % (0-3) Neutrophils # (Auto) 3.0 x10^3/uL (1.8-7.7) Lymphocytes # (Auto) 0.6 x10^3/uL (1.0-4.8) Monocytes # (Auto) 0.6 x10^3/uL (0.0-1.1) Eosinophils # (Auto) 0.1 x10^3/uL (0.0-0.7) Basophils # (Auto) 0.0 x10^3/uL (0.0-0.2) Sodium Level 140 mmol/L (136-145) Potassium Level 4.1 mmol/L (3.5-5.1) Chloride Level 97 mmol/L (98-107) Carbon Dioxide Level 31 mmol/L (21-32) Anion Gap 12 (6-14) Blood Urea Nitrogen 21 mg/dL (7-20) Creatinine 1.5 mg/dL (0.6-1.0) Estimated GFR (Cockcroft-Gault) 33.2 Glucose Level 162 mg/dL (70-99) Calcium Level 8.6 mg/dL (8.5-10.1) Magnesium Level 1.9 mg/dL (1.8-2.4) Triglycerides Level 95 mg/dL (0-150) Cholesterol Level 107 mg/dL (0-200) LDL Cholesterol, Calculated 43 mg/dL (0-100) VLDL Cholesterol, Calculated 19 mg/dL (0-40) Non-HDL Cholesterol Calculated 62 mg/dL (0-129) HDL Cholesterol 45 mg/dL (40-60) Cholesterol/HDL Ratio 2.4 Thyroid Stimulating Hormone (TSH) 1.476 uIU/mL (0.358-3.74) Glucose (Fingerstick) 153 mg/dL (70-99) Microbiology 06/03/21 Urine Culture - Final, Complete Klebsiella Pneumoniae 06/03/21 Blood Culture - Final, Complete NO GROWTH AFTER 5 DAYS Medications Current Medications Vancomycin HCl 1.5 gm/Sodium Chloride 500 ml @ 250 mls/hr 1X ONCE IV ; Start 06/03/21 at 23:00; Stop 06/04/21 at 00:59; Status UNV Piperacillin Sod/ Tazobactam Sod 4.5 gm/Sodium Chloride 100 ml @ 200 mls/hr 1X ONCE IV Last administered on 06/04/21at 00:02; Start 06/03/21 at 23:30; Stop 06/03/21 at 23:59; Status DC Furosemide (Lasix) 20 mg 1X ONCE IVP Last administered on 06/04/21at 00:00; Start 06/03/21 at 23:30; Stop 06/03/21 at 23:31; Status DC Vancomycin HCl (Vanco Per Pharmacy) 1 each PRN DAILY PRN MC SEE COMMENTS Last administered on 06/09/21at 02:21; Start 06/03/21 at 23:45; Stop 06/09/21 at 13:14; Status DC Vancomycin HCl 2 gm/Sodium Chloride 500 ml @ 250 mls/hr 1X ONCE IV Last administered on 06/04/21at 00:16; Start 06/04/21 at 00:00; Stop 06/04/21 at 01:59; Status DC Acetaminophen/ Hydrocodone Bitart (Lortab 5/325) 1 tab 1X ONCE PO Last administered on 06/04/21at 00:14; Start 06/04/21 at 00:30; Stop 06/04/21 at 00:31; Status DC Ondansetron HCl (Zofran) 4 mg PRN Q8HRS PRN IVP NAUSEA/VOMITING 1ST CHOICE; Start 06/04/21 at 01:45; Stop 06/05/21 at 01:44; Status DC Acetaminophen (Tylenol) 650 mg PRN Q6HRS PRN PO MILD PAIN / TEMP > 100.3'F; Start 06/04/21 at 01:45 Diphenhydramine HCl (Benadryl) 25 mg PRN Q6HRS PRN PO insomnia or itching Last administered on 06/05/21at 21:16; Start 06/04/21 at 01:45 Fentanyl Citrate (Fentanyl 2ml Vial) 50 mcg PRN Q4HRS PRN IVP SEVERE PAIN 7-10 Last administered on 06/04/21at 02:18; Start 06/04/21 at 01:45; Stop 06/04/21 at 04:58; Status DC Vancomycin HCl 2 gm/Sodium Chloride 500 ml @ 250 mls/hr Q24H IV Last administered on 06/09/21at 02:15; Start 06/04/21 at 23:00; Stop 06/09/21 at 13:14; Status DC Vancomycin HCl (Vancomycin Trough Level) 1 each 1X ONCE MC Last administered on 06/05/21at 22:30; Start 06/05/21 at 22:30; Stop 06/05/21 at 22:31; Status DC Fentanyl Citrate (Fentanyl 2ml Vial) 50 mcg PRN Q2HR PRN IVP SEVERE PAIN 7-10 Last administered on 06/04/21at 08:49; Start 06/04/21 at 05:00 Acetaminophen (Tylenol) 650 mg PRN QHS PRN PO MILD PAIN 1-3; Start 06/04/21 at 05:00 Apixaban (Eliquis) 2.5 mg BID PO Last administered on 06/06/21at 08:05; Start 06/04/21 at 09:00; Stop 06/06/21 at 15:58; Status DC Bumetanide (Bumex) 1 mg BID94 PO Last administered on 06/06/21at 08:05; Start 06/04/21 at 09:00; Stop 06/06/21 at 14:53; Status DC Celecoxib (CeleBREX) 100 mg PRN BID PRN PO INFLAMMATION Last administered on 06/09/21at 21:59; Start 06/04/21 at 05:00 Cyclosporine (Restasis) 1 drop BID OU Last administered on 06/10/21at 08:45; Start 06/04/21 at 09:00 Levothyroxine Sodium (Synthroid) 88 mcg DAILY06 PO Last administered on 06/10/21at 05:50; Start 06/04/21 at 06:00 Losartan Potassium (Cozaar) 50 mg DAILY PO Last administered on 06/06/21at 08:04; Start 06/04/21 at 09:00; Stop 06/06/21 at 14:53; Status DC Magnesium Oxide (Magnesium Oxide) 400 mg DAILY PO Last administered on 06/10/21at 08:45; Start 06/04/21 at 09:00 Nitroglycerin (Nitrostat) 0.4 mg PRN Q5MIN PRN SL CHEST PAIN Last administered on 06/07/21 11:26; Start 06/04/21 at 05:00 Carvedilol (Coreg) 25 mg BIDWMEALS PO Last administered on 06/06/21 08:06; Start 06/04/21 at 08:00; Stop 06/06/21 at 14:53; Status DC Vitamin D (Vitamin D3) 1,000 unit DAILY PO Last administered on 06/10/21 08:44; Start 06/04/21 at 09:00 Insulin Human Lispro (HumaLOG) 16 units TIDWMEALS SQ Last administered on 06/10/21 08:44; Start 06/04/21 at 08:00 Insulin Glargine (Lantus Syringe) 50 unit QHS SQ Last administered on 06/09/21 22:02; Start 06/04/21 at 21:00 Pantoprazole Sodium (Protonix) 40 mg DAILYAC PO Last administered on 06/10/21 08:45; Start 06/04/21 at 07:30 Atorvastatin Calcium (Lipitor) 5 mg DAILY PO Last administered on 06/09/21at 09:05; Start 06/04/21 at 09:00; Stop 06/09/21 at 15:21; Status DC Dextrose (Dextrose 50%-Water Syringe) 12.5 gm PRN Q15MIN PRN IV SEE COMMENTS; Start 06/04/21 at 05:30 Dextrose (Iv Dextrose 5%) 250 ml PRN Q15MIN PRN IV SEE COMMENTS; Start 06/04/21 at 05:30 Info (Anti-Coagulation Monitoring By Pharmacy) 1 each PRN DAILY PRN MC PER PROTOCOL Last administered on 06/04/21at 05:33; Start 06/04/21 at 05:30 Vitamin B Complex (Folbic Tablet) 1 tab DAILY PO Last administered on 06/10/21 08:44; Start 06/04/21 at 11:00 Lidocaine (Lidoderm) 1 patch DAILY TD Last administered on 06/10/21 08:46; Start 06/04/21 at 11:30 Miscellaneous (Lidoderm Patch Removal) 1 ea QHS MC ; Start 06/04/21 at 21:00; Stop 06/04/21 at 10:43; Status DC Diclofenac Sodium (Voltaren) 1 laura BID TP Last administered on 06/10/21 08:47; Start 06/04/21 at 11:30 Lidocaine (Lidoderm) 1 patch DAILY TD ; Start 06/04/21 at 11:00; Status Cancel Miscellaneous (Lidoderm Patch Removal) 1 ea QHS MC Last administered on 06/09/21at 21:00; Start 06/04/21 at 21:00 Acetaminophen/ Hydrocodone Bitart (Lortab 5/325) 1 tab PRN Q4HRS PRN PO MODERATE PAIN Last administered on 06/07/21 17:43; Start 06/04/21 at 10:45 Acetaminophen/ Hydrocodone Bitart (Lortab 5/325) 2 tab PRN Q4HRS PRN PO SEVERE PAIN Last administered on 06/09/21 22:00; Start 06/04/21 at 10:45 Nystatin (Nystop) 1 laura BID TP Last administered on 06/10/21 08:47; Start 06/04/21 at 14:00 Piperacillin Sod/ Tazobactam Sod (Zosyn Per Pharmacy) 1 each PRN DAILY PRN MC SEE COMMENTS; Start 06/04/21 at 14:15 Piperacillin Sod/ Tazobactam Sod 4.5 gm/Dextrose 100 ml @ 200 mls/hr Q6HRS IV Last administered on 06/05/21at 05:38; Start 06/04/21 at 16:00; Stop 06/05/21 at 07:44; Status DC Lactobacillus Rhamnosus (Culturelle) 1 cap BID PO Last administered on 06/10/21 08:45; Start 06/04/21 at 21:00 Sodium Chloride (Saline Mist Nasal) 1 laura PRN Q1HR PRN NS NASAL CONGESTION Last administered on 06/09/21 09:11; Start 06/04/21 at 19:45 Piperacillin Sod/ Tazobactam Sod 3.375 gm/Sodium Chloride 50 ml @ 100 mls/hr Q6HRS IV Last administered on 06/10/21 05:50; Start 06/05/21 at 12:00 Docusate Sodium (Colace) 100 mg DAILY PO Last administered on 06/07/21at 12:43; Start 06/06/21 at 13:15; Stop 06/07/21 at 16:33; Status DC Polyethylene Glycol (miraLAX PACKET) 17 gm DAILY PO Last administered on 06/08/21at 08:15; Start 06/06/21 at 13:15 Carvedilol (Coreg) 12.5 mg BIDWMEALS PO Last administered on 06/10/21at 08:45; Start 06/06/21 at 17:00 Apixaban (Eliquis) 2.5 mg BID PO Last administered on 06/10/21at 08:44; Start 06/07/21 at 21:00 Heparin Sodium/ Sodium Chloride 500 ml @ As Directed STK-MED ONCE .ROUTE ; Start 06/07/21 at 10:42; Stop 06/07/21 at 10:42; Status DC Fentanyl Citrate (Fentanyl 2ml Vial) 100 mcg STK-MED ONCE .ROUTE ; Start 06/07/21 at 10:50; Stop 06/07/21 at 10:50; Status DC Midazolam HCl (Versed) 2 mg STK-MED ONCE .ROUTE ; Start 06/07/21 at 10:50; Stop 06/07/21 at 10:50; Status DC Heparin Sodium/ Sodium Chloride (HEPARIN for ARTERIAL LINE FLUSH) 1,000 unit 1X ONCE IART Last administered on 06/07/21at 11:00; Start 06/07/21 at 11:00; Stop 06/07/21 at 11:10; Status DC Midazolam HCl (Versed) 2 mg 1X ONCE IV Last administered on 06/07/21at 11:47; Start 06/07/21 at 11:00; Stop 06/07/21 at 11:11; Status DC Fentanyl Citrate (Fentanyl 2ml Vial) 100 mcg 1X ONCE IV Last administered on 06/07/21at 11:47; Start 06/07/21 at 11:00; Stop 06/07/21 at 11:10; Status DC Lidocaine HCl (Lidocaine 1% 20ml Vial) 20 ml 1X ONCE INJ Last administered on 06/07/21at 11:51; Start 06/07/21 at 11:00; Stop 06/07/21 at 11:10; Status DC Nitroglycerin (Nitrostat) 0.4 mg STK-MED ONCE SL ; Start 06/07/21 at 11:25; Stop 06/07/21 at 11:25; Status DC Albuterol Sulfate (Ventolin Neb Soln) 2.5 mg 1X ONCE NEB ; Start 06/07/21 at 11:30; Stop 06/07/21 at 11:31; Status DC Albuterol/ Ipratropium (Duoneb) 3 ml STK-MED ONCE .ROUTE ; Start 06/07/21 at 11:47; Stop 06/07/21 at 11:47; Status DC Furosemide (Lasix) 40 mg 1X ONCE IVP Last administered on 06/07/21at 15:47; Start 06/07/21 at 14:00; Stop 06/07/21 at 14:01; Status DC Docusate Sodium (Colace) 100 mg BID PO Last administered on 06/08/21at 08:15; Start 06/07/21 at 21:00 Magnesium Citrate (Citroma) 296 ml 1X ONCE PO Last administered on 06/08/21at 09:11; Start 06/08/21 at 08:45; Stop 06/08/21 at 08:46; Status DC Furosemide (Lasix) 40 mg 1X ONCE IVP Last administered on 06/08/21at 12:36; Start 06/08/21 at 13:00; Stop 06/08/21 at 13:01; Status DC Vancomycin HCl (Vancomycin Trough Level) 1 each 1X ONCE MC Last administered on 06/08/21 22:30; Start 06/08/21 at 22:30; Stop 06/08/21 at 22:31; Status DC Furosemide (Lasix) 40 mg 1X ONCE IVP Last administered on 06/09/21 13:13; Start 06/09/21 at 12:30; Stop 06/09/21 at 12:31; Status DC Atorvastatin Calcium (Lipitor) 20 mg QHS PO Last administered on 06/09/21at 21:59; Start 06/09/21 at 21:00 Amlodipine Besylate (Norvasc) 5 mg DAILY PO Last administered on 06/10/21 08:44; Start 06/09/21 at 15:30 Active Scripts Active Reported Bumetanide 1 Mg Tablet 1 Mg PO BID Carvedilol 25 Mg Tablet 25 Mg PO BIDWMEALS Eliquis (Apixaban) 2.5 Mg Tablet 2.5 Mg PO BID Restasis (Cyclosporine) 1 Each Droperette 1 Drop EACHEYE BID Tylenol (Acetaminophen) 325 Mg Tablet 650 Mg PO QHS PRN Magnesium Oxide 400 Mg Tablet 400 Mg PO DAILY Protonix (Pantoprazole Sodium) 20 Mg Tablet.dr 40 Mg PO DAILY Novolog (Insulin Aspart) 100 Unit/1 Ml Cartridge 16 Unit SQ TIDAC Lantus Solostar (Insulin Glargine,Hum.rec.anlog) 100 Unit/1 Ml Insuln.pen 50 Unit SQ QHS Novolog Flexpen (Insulin Aspart) 100 Unit/1 Ml Insuln.pen 0 SQ TIDWMEALS PRN Celebrex (Celecoxib) 100 Mg Capsule 1 Cap PO PRN BID Nitrostat (Nitroglycerin) 0.4 Mg Tab.subl 1 Tab SL UD PRN Vitamin D (Cholecalciferol (Vitamin D3)) 1,000 Unit Capsule 1 Cap PO DAILY Losartan Potassium 50 Mg Tablet 50 Mg PO DAILY Synthroid (Levothyroxine Sodium) 88 Mcg Tablet 1 Tab PO DAILY Gave this morning Take tomorrow Pravastatin Sodium 20 Mg Tablet 1 Tab PO DAILY Vitals/I & O Vital Sign - Last 24 Hours 06/09/21 06/09/21 06/09/21 06/09/21 10:42 15:00 15:20 15:50 Temp 97.6 99.1 97.6 99.1 Pulse 80 95 Resp 18 18 B/P (MAP) 141/87 (105) 164/71 (102) Pulse Ox 95 94 95 95 O2 Delivery Nasal Cannula Nasal Cannula Nasal Cannula Nasal Cannula O2 Flow Rate 10.0 10.0 10.0 10.0 06/09/21 06/09/21 06/09/21 06/09/21 16:45 16:45 19:01 20:00 Temp 98.5 98.5 Pulse 95 95 85 Resp 18 B/P (MAP) 164/71 164/71 162/81 (108) Pulse Ox 92 O2 Delivery Nasal Cannula Nasal Cannula O2 Flow Rate 5.0 5.0 06/09/21 06/09/21 06/09/21 06/10/21 22:00 22:22 22:30 02:26 Temp 98.3 97.7 98.3 97.7 Pulse 83 93 Resp B/P (MAP) 151/69 (96) 139/63 (88) Pulse Ox 92 94 94 96 O2 Delivery Nasal Cannula Nasal Cannula Nasal Cannula Nasal Cannula O2 Flow Rate 5.0 5.0 5.0 5.0 06/10/21 06/10/21 06/10/21 06/10/21 07:00 07:29 08:44 08:45 Temp 98.8 98.8 Pulse 103 103 103 Resp 20 B/P (MAP) 158/67 (97) 158/67 158/67 Pulse Ox 92 O2 Delivery Nasal Cannula Nasal Cannula O2 Flow Rate 5.0 5.0 Intake and Output 06/09/21 06/09/21 06/10/21 15:00 23:00 07:00 Intake Total 50 ml 330 ml 200 ml Output Total 1000 ml 700 ml Balance 50 ml -670 ml -500 ml Justifications for Admission Other Justification MELANIE ABDULLAHI MD Jun 10, 2021 10:10
--- NOTE | 2021-06-10 10:43 | PDOC ---
PULMONARY PROGRESS NOTES DATE: 06/10/21 TIME: 10:40 Subjective Patient had right knee pain denies any increased shortness of breath. Vitals Vital Signs Date Time Temp Pulse Resp B/P (MAP) Pulse Ox O2 Delivery O2 Flow Rate FiO2 06/10/21 10:07 97.9 79 20 169/74 (105) 93 Nasal Cannula 5.0 97.9 ROS: No Nausea, No Chest Pain, No Increase Cough General: Alert, No acute distress Lungs: Clear Cardiovascular: S1, S2 Abdomen: Soft, Non-tender Neuro Exam: Alert Extremities: Other (2+ non-pitting, right knee slightly more swollen than the left) Skin: Warm, No Rashes Labs Laboratory Tests Test 06/08/21 11:50 06/08/21 15:40 06/08/21 16:52 06/08/21 20:10 Glucose (Fingerstick) 108 mg/dL (70-99) 108 mg/dL (70-99) 102 mg/dL (70-99) Sodium Level 136 mmol/L (136-145) Potassium Level 4.2 mmol/L (3.5-5.1) Chloride Level 98 mmol/L (98-107) Carbon Dioxide Level 29 mmol/L (21-32) Anion Gap 9 (6-14) Blood Urea Nitrogen 22 mg/dL (7-20) Creatinine 1.4 mg/dL (0.6-1.0) Estimated GFR (Cockcroft-Gault) 36.0 Glucose Level 112 mg/dL (70-99) Calcium Level 8.8 mg/dL (8.5-10.1) Magnesium Level 2.2 mg/dL (1.8-2.4) Test 06/08/21 22:20 06/09/21 04:10 06/09/21 07:35 06/09/21 11:17 Vancomycin Level Trough 20.4 mcg/mL (10.0-20.0) Vancomycin Last Dose Date Vancomycin Last Dose Time Creatinine 1.2 mg/dL (0.6-1.0) Estimated GFR (Cockcroft-Gault) 43.0 Glucose (Fingerstick) 110 mg/dL (70-99) 154 mg/dL (70-99) Test 06/09/21 16:40 06/09/21 20:43 06/10/21 02:14 06/10/21 04:00 Glucose (Fingerstick) 70 mg/dL (70-99) 173 mg/dL (70-99) 172 mg/dL (70-99) White Blood Count 4.3 x10^3/uL (4.0-11.0) Red Blood Count 2.82 x10^6/uL (3.50-5.40) Hemoglobin 9.6 g/dL (12.0-15.5) Hematocrit 29.8 % (36.0-47.0) Mean Corpuscular Volume 106 fL (79-100) Mean Corpuscular Hemoglobin 34 pg (25-35) Mean Corpuscular Hemoglobin Concent 32 g/dL (31-37) Red Cell Distribution Width 17.6 % (11.5-14.5) Platelet Count 133 x10^3/uL (140-400) Neutrophils (%) (Auto) 70 % (31-73) Lymphocytes (%) (Auto) 14 % (24-48) Monocytes (%) (Auto) 13 % (0-9) Eosinophils (%) (Auto) 2 % (0-3) Basophils (%) (Auto) 0 % (0-3) Neutrophils # (Auto) 3.0 x10^3/uL (1.8-7.7) Lymphocytes # (Auto) 0.6 x10^3/uL (1.0-4.8) Monocytes # (Auto) 0.6 x10^3/uL (0.0-1.1) Eosinophils # (Auto) 0.1 x10^3/uL (0.0-0.7) Basophils # (Auto) 0.0 x10^3/uL (0.0-0.2) Sodium Level 140 mmol/L (136-145) Potassium Level 4.1 mmol/L (3.5-5.1) Chloride Level 97 mmol/L (98-107) Carbon Dioxide Level 31 mmol/L (21-32) Anion Gap 12 (6-14) Blood Urea Nitrogen 21 mg/dL (7-20) Creatinine 1.5 mg/dL (0.6-1.0) Estimated GFR (Cockcroft-Gault) 33.2 Glucose Level 162 mg/dL (70-99) Calcium Level 8.6 mg/dL (8.5-10.1) Magnesium Level 1.9 mg/dL (1.8-2.4) Triglycerides Level 95 mg/dL (0-150) Cholesterol Level 107 mg/dL (0-200) LDL Cholesterol, Calculated 43 mg/dL (0-100) VLDL Cholesterol, Calculated 19 mg/dL (0-40) Non-HDL Cholesterol Calculated 62 mg/dL (0-129) HDL Cholesterol 45 mg/dL (40-60) Cholesterol/HDL Ratio 2.4 Thyroid Stimulating Hormone (TSH) 1.476 uIU/mL (0.358-3.74) Test 06/10/21 07:34 06/10/21 10:11 Glucose (Fingerstick) 153 mg/dL (70-99) 164 mg/dL (70-99) Laboratory Tests Test 06/09/21 11:17 06/09/21 16:40 06/09/21 20:43 06/10/21 02:14 Glucose (Fingerstick) 154 mg/dL (70-99) 70 mg/dL (70-99) 173 mg/dL (70-99) 172 mg/dL (70-99) Test 06/10/21 04:00 06/10/21 07:34 06/10/21 10:11 White Blood Count 4.3 x10^3/uL (4.0-11.0) Red Blood Count 2.82 x10^6/uL (3.50-5.40) Hemoglobin 9.6 g/dL (12.0-15.5) Hematocrit 29.8 % (36.0-47.0) Mean Corpuscular Volume 106 fL (79-100) Mean Corpuscular Hemoglobin 34 pg (25-35) Mean Corpuscular Hemoglobin Concent 32 g/dL (31-37) Red Cell Distribution Width 17.6 % (11.5-14.5) Platelet Count 133 x10^3/uL (140-400) Neutrophils (%) (Auto) 70 % (31-73) Lymphocytes (%) (Auto) 14 % (24-48) Monocytes (%) (Auto) 13 % (0-9) Eosinophils (%) (Auto) 2 % (0-3) Basophils (%) (Auto) 0 % (0-3) Neutrophils # (Auto) 3.0 x10^3/uL (1.8-7.7) Lymphocytes # (Auto) 0.6 x10^3/uL (1.0-4.8) Monocytes # (Auto) 0.6 x10^3/uL (0.0-1.1) Eosinophils # (Auto) 0.1 x10^3/uL (0.0-0.7) Basophils # (Auto) 0.0 x10^3/uL (0.0-0.2) Sodium Level 140 mmol/L (136-145) Potassium Level 4.1 mmol/L (3.5-5.1) Chloride Level 97 mmol/L (98-107) Carbon Dioxide Level 31 mmol/L (21-32) Anion Gap 12 (6-14) Blood Urea Nitrogen 21 mg/dL (7-20) Creatinine 1.5 mg/dL (0.6-1.0) Estimated GFR (Cockcroft-Gault) 33.2 Glucose Level 162 mg/dL (70-99) Calcium Level 8.6 mg/dL (8.5-10.1) Magnesium Level 1.9 mg/dL (1.8-2.4) Triglycerides Level 95 mg/dL (0-150) Cholesterol Level 107 mg/dL (0-200) LDL Cholesterol, Calculated 43 mg/dL (0-100) VLDL Cholesterol, Calculated 19 mg/dL (0-40) Non-HDL Cholesterol Calculated 62 mg/dL (0-129) HDL Cholesterol 45 mg/dL (40-60) Cholesterol/HDL Ratio 2.4 Thyroid Stimulating Hormone (TSH) 1.476 uIU/mL (0.358-3.74) Glucose (Fingerstick) 153 mg/dL (70-99) 164 mg/dL (70-99) Medications Active Scripts Medications Dose Route/Sig Max Daily Dose Days Date Category Dose Instructions Bumetanide 1 Mg Tablet 1 Mg PO BID 06/04/21 Reported Carvedilol 25 Mg Tablet 25 Mg PO BIDWMEALS 06/04/21 Reported Eliquis (Apixaban) 2.5 Mg Tablet 2.5 Mg PO BID 06/04/21 Reported Restasis (Cyclosporine) 1 Each Droperette 1 Drop EACHEYE BID 01/09/18 Reported Tylenol (Acetaminophen) 325 Mg Tablet 650 Mg PO QHS PRN 01/09/18 Reported Magnesium Oxide 400 Mg Tablet 400 Mg PO DAILY 01/09/18 Reported Protonix (Pantoprazole Sodium) 20 Mg Tablet.dr 40 Mg PO DAILY 01/09/18 Reported Novolog (Insulin Aspart) 100 Unit/1 Ml Cartridge 16 Unit SQ TIDAC 01/09/18 Reported Lantus Solostar (Insulin Glargine,Hum.rec.anlog) 100 Unit/1 Ml Insuln.pen 50 Unit SQ QHS 01/09/18 Reported Novolog Flexpen (Insulin Aspart) 100 Unit/1 Ml Insuln.pen 0 SQ TIDWMEALS PRN 02/19/16 Reported Celebrex (Celecoxib) 100 Mg Capsule 1 Cap PO PRN BID 02/19/16 Reported Nitrostat (Nitroglycerin) 0.4 Mg Tab.subl 1 Tab SL UD PRN 02/16/16 Reported Vitamin D (Cholecalciferol (Vitamin D3)) 1,000 Unit Capsule 1 Cap PO DAILY 02/16/16 Reported Losartan Potassium 50 Mg Tablet 50 Mg PO DAILY 02/16/16 Reported Synthroid (Levothyroxine Sodium) 88 Mcg Tablet 1 Tab PO DAILY 02/16/16 Reported Gave this morning Take tomorrow Pravastatin Sodium 20 Mg Tablet 1 Tab PO DAILY 02/16/16 Reported Impression . 1. Acute on chronic respiratory failure secondary to acute diastolic congestive heart failure,/acute cor pulmonale/ rule out pneumonia. She had a syncopal episode ? aspiration pneumonitis. 2. Abnormal chest x-ray. 3. Acute diastolic congestive heart failure. 4. Atrial fibrillation. 5. Hypertension. 6. Obstructive sleep apnea-hypopnea syndrome, obesity hypoventilation syndrome. 7. Gastroesophageal reflux disease. 8. Acute kidney injury. 9. klebsiella UTI Plan . clinically improving with lasix Continue O2 titration to maintain O2 sat 90% As needed diuresis. improving CHF on cxr wean abx. Off VANC. Zosyn can be changed to p.o. antibiotic based on sensitivity for Klebsiella UTI Encourage pulmonary hygiene; IS hourly while awake Eliquis for anticoagulation Protonix for Prophylaxis Continue Arredondo for accurate I&O; Currently on SHLOMO Chairez MD Jun 10, 2021 10:43
[2021-06-10] MEDS ORDERED: CARV12.511 PO (11:25)
[2021-06-10] MEDS ORDERED: NYST15PO2 TP (11:25)
[2021-06-10] MEDS ORDERED: AMLO-186 PO (11:25)
[2021-06-10] MEDS ORDERED: LIDO700A21 TD (11:25)
[2021-06-10] MEDS ORDERED: Diclofenac Sodium TP (11:25)
[2021-06-10] MEDS ORDERED: AMOX1TAB10 PO (11:25)
[2021-06-10] MEDS ORDERED: HYDR-2761 PO (11:25)
--- NOTE | 2021-06-10 11:27 | SNU/HH DC ---
DISCHARGE ORDERS DISCHARGE INFORMATION: FINAL DIAGNOSIS Problems Medical Problems: (1) Chronic respiratory failure with hypoxia, on home O2 therapy Status: Acute (2) Diabetes mellitus Status: Acute (3) Failure to thrive Status: Acute (4) Generalized weakness Status: Acute (5) Healthcare-associated pneumonia Status: Acute (6) Syncope Status: Acute (7) Urinary tract infection Status: Acute CONDITION ON DISCHARGE: Stable CODE STATUS: Code Status: Full CARE HOME: SNF STAY <30 DAYS: Yes HOSPICE: HOSPICE: No HOSPICE EVAL & TREAT: No LTAC: ADMIT TO LTAC: No POST DISCHARGE ORDERS: ACTIVITY ORDERS: Activity as tolerated WEIGHT BEARING STATUS: No restrictions BATHING ORDERS: No Tub Bath until see DIET AFTER DISCHARGE: Cardiac CHECKS AFTER DISCHARGE: CHECKS AFTER DISCHARGE: Check blood sugar, ac/hs TREATMENT/EQUIPMENT ORDERS: Physical Therapy For: Evalulation/Treatment Occupational Therapy For: Evaluation/Treatment Speech Language Pathology For: Evaluation/Treatment DISCHARGE MEDICATIONS: Home Meds Active Scripts Amoxicillin/Potassium Clav (AMOX TR-K CLV 500-125 MG TAB) 1 Each Tablet, 1 TAB PO BID for ., #14 TAB Prov:CASTLE,NIAL K III DO 06/10/21 Lidocaine (Lidocaine PATCH ) 1 Each Adh..patch, 1 PATCH TD DAILY for . for 14 Days, #14 PATCH Prov:CASTLE,NIAL K III DO 06/10/21 Nystatin (NYAMYC) 15 Gm Powder, 1 MADELYN TP BID for . for 14 Days, #1 MISC Prov:CASTLE,NIAL K III DO 06/10/21 Hydrocodone Bit/Acetaminophen (HYDROCODONE-APAP 5-325 ) 1 Tab Tablet, 1 TAB PO PRN Q4HRS PRN for MODERATE PAIN for 10 Days, #30 TAB Prov:CASTLE,NIAL K III DO 06/10/21 [Diclofenac Sodium 1% Topical] 100 GM GEL..GRAM. No Conflict Check, 1 MADELYN TP BID for . for 30 Days, #60 EACH Prov:CASTLE,NIAL K III DO 06/10/21 Amlodipine Besylate (AMLODIPINE BESYLATE) 5 Mg Tablet, 5 MG PO DAILY for . for 90 Days, #90 TAB Prov:CASTLE,NIAL K III DO 06/10/21 Carvedilol (CARVEDILOL ) 12.5 Mg Tablet, 12.5 MG PO BIDWMEALS for . for 90 Days, #180 TAB Prov:CASTLE,NIAL K III DO 06/10/21 Reported Medications Bumetanide (BUMETANIDE) 1 Mg Tablet, 1 MG PO BID for , TAB 06/04/21 Apixaban (ELIQUIS) 2.5 Mg Tablet, 2.5 MG PO BID for , TAB 06/04/21 Cyclosporine (RESTASIS) 1 Each Droperette, 1 DROP EACHEYE BID, #60 VIAL 3 Refills 01/09/18 Acetaminophen (TYLENOL) 325 Mg Tablet, 650 MG PO QHS PRN for PAIN, TAB 01/09/18 Magnesium Oxide (MAGNESIUM OXIDE) 400 Mg Tablet, 400 MG PO DAILY for supplement, TAB 01/09/18 Pantoprazole Sodium (PROTONIX) 20 Mg Tablet.dr, 40 MG PO DAILY, TAB 01/09/18 Insulin Aspart (NOVOLOG) 100 Unit/1 Ml Cartridge, 16 UNIT SQ TIDAC, EACH 01/09/18 Insulin Glargine,Hum.rec.anlog (LANTUS SOLOSTAR) 100 Unit/1 Ml Insuln.pen, 50 UNIT SQ QHS, #15 ML 3 Refills 01/09/18 Insulin Aspart (NOVOLOG FLEXPEN) 100 Unit/1 Ml Insuln.pen, 0 SQ TIDWMEALS PRN for SEE COMMENTS, SYR 02/19/16 Celecoxib (CELEBREX) 100 Mg Capsule, 1 CAP PO PRN BID for , #60 CAP 3 Refills 02/19/16 Nitroglycerin (NITROSTAT) 0.4 Mg Tab.subl, 1 TAB SL UD PRN for CHEST PAIN, #100 TAB 3 Refills 02/16/16 Cholecalciferol (Vitamin D3) (VITAMIN D) 1,000 Unit Capsule, 1 CAP PO DAILY for , #30 CAP 3 Refills 02/16/16 Losartan Potassium (LOSARTAN POTASSIUM) 50 Mg Tablet, 50 MG PO DAILY for , TAB 02/16/16 Levothyroxine Sodium (SYNTHROID) 88 Mcg Tablet, 1 TAB PO DAILY, #30 TAB 5 Refills Gave this morning Take tomorrow 02/16/16 Pravastatin Sodium (PRAVASTATIN SODIUM) 20 Mg Tablet, 1 TAB PO DAILY for , #30 TAB 5 Refills 02/16/16 Discontinued Reported Medications Carvedilol (CARVEDILOL) 25 Mg Tablet, 25 MG PO BIDWMEALS for CARDIAC, TAB 06/04/21 Carvedilol (CARVEDILOL ) 12.5 Mg Tablet, 12.5 MG PO BIDWMEALS for CARDIAC, TAB 10/28/19 Apixaban (ELIQUIS) 5 Mg Tablet, 5 MG PO BID for blood thinner, TAB 10/28/19 AC GARY III DO Jun 10, 2021 11:27
[2021-06-10] MEDS: HYDROcodone/APAP 5/325MG 1 TAB TABLET PO PRN ×2 (11:30→15:42)
--- NOTE | 2021-06-10 12:36 | NUR ---
SS following up with discharge planning. SS reviewed pt chart and discussed with pt RN. Pt is currently requiring oxygen at five liters nasal canula. COVID19 test pending for placement. PT/OT recommended nursing home unit. Pt accepted at [facility], ; fax [phone]. Discharge orders received and phoned and faxed to [facility] with clinical updates. Currently awaiting PCR test result at this time. SS will continue to follow for discharge planning. Addendum: 06/10/21 at 1530 by FAB RAPHAEL SS COVID19 negative PCR. Pt will discharge today and go to [facility] at 1700. [place] to provide transportation. Pt, pt's RN, and pt's spouse notified.
[2021-06-10 15:00] VITALS: BP 171/74
[2021-06-10 16:30] VITALS: BP 171/74
--- NOTE | 2021-06-10 17:37 | NUR ---
Discharge Note: MARIA ELENA HOFFMANN Discharge instructions and discharge home medications reviewed with Other facility and a copy given. All questions have been answered and understanding verbalized. The following instructions and handouts were given: Discharge Paperwork, medication list and follow-up appointments. Patient discharged to [facility] via Wheelchair.
--- NOTE | 2021-06-10 17:50 | DS ---
DATE OF DISCHARGE: 06/10/2021 ADMISSION DIAGNOSES: Sepsis, pneumonia, respiratory failure. DISCHARGE DIAGNOSES: Resolving respiratory failure; resolving sepsis; resolving pneumonia; resolving urinary tract infection; acute on chronic systolic and diastolic heart failure; atrial fibrillation; coagulopathy, chronic anticoagulation; morbid obesity with a BMI of 47; weakness; history of syncope; history of right knee injury; diabetes; chronic kidney disease stage 3. CONSULTS: Cardiology. Abigail Castano MD and Carlos Longo MD PROCEDURES: Cardiac cath, which showed severe elevated biventricular filling pressures, moderate pulmonary hypertension and normal cardiac output. HOSPITAL COURSE: The patient is a pleasant, elderly female who presented with multifactorial respiratory failure with acute on chronic systolic and diastolic heart failure, pneumonia and sepsis. She was admitted. We gave her IV antibiotics. She required BiPAP at first and we were able to titrate her down to a nasal cannula. She was also taken for a cardiac cath to help clarify her volume status. Please see the above results. We did physical therapy and continued her other home medications. Today, she is doing much better. She is on 5 liters. I suspect we can get her to [facility]. DISPOSITION: [facility]. ACTIVITY: As tolerated. DIET: Low sodium. MEDICATIONS: Augmentin 500 b.i.d. for 14 days, carvedilol 12.5 b.i.d., p.r.n. hydrocodone, lidocaine patches, nystatin powder, amlodipine 5 a day, Tylenol p.r.n., Eliquis 2.5 b.i.d., bumetanide 1 b.i.d., Celebrex 100 b.i.d. p.r.n., Restasis p.r.n., vitamin D, insulin 16 units of NovoLog with meals and Lantus 50 units at bedtime, Synthroid 88 a day, losartan 50 a day, magnesium oxide 400 daily, p.r.n. nitro, Protonix 40 a day, pravastatin 20 a day. TOTAL TIME: [address]: Karli TID: [id number]
[2021-06-10] MEDS ORDERED: CEFDINIR 300 MG CAPSULE PO SCH (21:00)
== END 2021-06-10 17:15 | DRG 871 ==
LOC: ER 21:04 → 6 SOUTH 22:55
PROVIDERS: ADMIT Internal Medicine; ATTEND Internal Medicine
PROC: 4A023N6 Measurement of Cardiac Sampling and Pressure, Right Heart, Percutaneous Approach (ICD-10-PCS; principal; 2021-06-07)
PROC: 5A09357 Assistance with Respiratory Ventilation, Less than 24 Consecutive Hours, Continuous Positive Airway Pressure (ICD-10-PCS; 2021-06-07)
DX: A41.9 Sepsis, unspecified organism (principal); J18.9 Pneumonia, unspecified organism; I50.43 Acute on chronic combined systolic (congestive) and diastolic (congestive) heart failure; J96.21 Acute and chronic respiratory failure with hypoxia; D68.9 Coagulation defect, unspecified; E66.2 Morbid (severe) obesity with alveolar hypoventilation; I13.0 Hypertensive heart and chronic kidney disease with heart failure and stage 1 through stage 4 chronic kidney disease, or unspecified chronic kidney disease; I48.20 Chronic atrial fibrillation, unspecified; N17.9 Acute kidney failure, unspecified; N18.4 Chronic kidney disease, stage 4 (severe); N39.0 Urinary tract infection, site not specified; Z68.42 Body mass index [BMI] 45.0-49.9, adult; Z20.822 Contact with and (suspected) exposure to COVID-19; B96.1 Klebsiella pneumoniae [K. pneumoniae] as the cause of diseases classified elsewhere; D64.9 Anemia, unspecified; D69.6 Thrombocytopenia, unspecified; D75.89 Other specified diseases of blood and blood-forming organs; E03.9 Hypothyroidism, unspecified; E11.22 Type 2 diabetes mellitus with diabetic chronic kidney disease; E11.42 Type 2 diabetes mellitus with diabetic polyneuropathy; E78.00 Pure hypercholesterolemia, unspecified; E78.5 Hyperlipidemia, unspecified; F40.240 Claustrophobia; I25.10 Atherosclerotic heart disease of native coronary artery without angina pectoris; I27.81 Cor pulmonale (chronic); I27.20 Pulmonary hypertension, unspecified; K21.9 Gastro-esophageal reflux disease without esophagitis; K59.09 Other constipation; M47.812 Spondylosis without myelopathy or radiculopathy, cervical region; M77.9 Enthesopathy, unspecified; R62.7 Adult failure to thrive; Z96.653 Presence of artificial knee joint, bilateral; G89.29 Other chronic pain; M54.50 Low back pain, unspecified; R53.81 Other malaise; W16.212A Fall in (into) filled bathtub causing other injury, initial encounter; E11.51 Type 2 diabetes mellitus with diabetic peripheral angiopathy without gangrene; S83.91XA Sprain of unspecified site of right knee, initial encounter; Y95 Nosocomial condition; Z79.01 Long term (current) use of anticoagulants; Z82.49 Family history of ischemic heart disease and other diseases of the circulatory system; Z90.49 Acquired absence of other specified parts of digestive tract; Z90.710 Acquired absence of both cervix and uterus; Z95.5 Presence of coronary angioplasty implant and graft; Z99.81 Dependence on supplemental oxygen; Y93.89 Activity, other specified; Y92.091 Bathroom in other non-institutional residence as the place of occurrence of the external cause; Y99.8 Other external cause status; Z79.4 Long term (current) use of insulin
CPT/HCPCS: 36415; 36600; 51702; 70450; 71045; 72125; 73560; 76937; 80048; 80053; 80061; 80202; 81001; 82550; 82565; 82607; 82805; 82962; 83605; 83735; 83880; 84100; 84443; 84484; 85025; 85610; 85730; 87040; 87077; 87086; 87186; 87428; 87641; 93005; 93306; 93451; 94640; 94660; 96361; 96374; 99152; 99153; C1773; C1894; G0238; J1644; J1815; J1940; J2250; J2543; J3010; J3370; J3490; J7040; J7060; U0003; 97110-GO; 97110-GP; 97530-GO; 97530-GP; 97535-GO; 99285-25; C8929; G0378; Q0163